=== PATIENT | female | born 1970 | race Caucasian/White ===

== ENCOUNTER → 2017-10-05 11:42 | Outpatient (CLI) | payer BC, SELFPAY ==
--- NOTE | 2017-10-05 12:10 | RAD_ITS ---
STUDY: X-RAY - LEFT SHOULDER REASON FOR EXAM: Female, 47 years old. Persistent pain after recent injury TECHNIQUE: Four view(s) of the shoulder. COMPARISON: None. FINDINGS: The glenohumeral joint is within normal limits. The acromioclavicular joint is normal in appearance. No acute abnormalities are seen in the visualized clavicle. No acute abnormalities are seen in the visualized humerus. The soft tissues are unremarkable. There is minimal pleural thickening in both lung apices. No significant abnormalities are seen in the visualized left lung or left ribs. RAD/Shoulder min 2 Views IMPRESSION: No significant abnormalities are seen radiographically in the left shoulder. Electronically Signed: Karlee Patrick MD at 0:43 EST Tel Direct: [phone], Service support ,
== END ==
PROVIDERS: Family Provider Family Medicine; PCP Family Medicine; Visit Provider Family Medicine
DX: M25.512 Pain in left shoulder (principal)
CPT/HCPCS: 73030

== ENCOUNTER → 2018-06-14 11:25 | Outpatient (CLI) | payer BC, SELFPAY ==
[2018-06-14 14:43] LABS: Anion Gap 6 (5-15); BUN 8 mg/dL (7-18); BUN/Creat Ratio 12.2 RATIO (10-20); Calcium,Total 8.2 mg/dL (8.5-10.1); Chloride 104 mmol/L (98-107); Cholesterol 209 mg/dL (200); Creatinine, Serum 0.65 mg/dL (0.55-1.02); EST Glomerular Filtration Rate 102 mL/min (>60); Est Glom Filt Rate - Afr Amer 123 mL/min (>60); Glucose 55 mg/dL (74-106); High Density Lipoprotein 53 mg/dL; Potassium 3.6 mmol/L (3.5-5.1); Sodium Level 138 mmol/L (136-145); Triglycerides 103 mg/dL; Very Low Density Lipoprotein 21 mg/dL (5-40)
[2018-06-14 14:49] LABS: Vitamin D,25 Hydroxy 15.4 ng/mL (29.95-100.01)
== END ==
PROVIDERS: Family Provider Family Medicine; PCP Family Medicine; Referring Provider Family Medicine; Visit Provider Family Medicine
DX: Z00.00 Encounter for general adult medical examination without abnormal findings (principal); E55.9 Vitamin D deficiency, unspecified
CPT/HCPCS: 36415; 80048; 80061; 82306

== ENCOUNTER → 2018-06-21 17:37 | Outpatient (CLI) | payer BC, SELFPAY ==
--- NOTE | 2018-06-21 18:15 | MRI_ITS ---
STUDY: MRI UPPER EXTREMITY LEFT HUMERUS WITHOUT CONTRAST REASON FOR EXAM: Female, 47 years old. Left posterior humerus pain x1 year TECHNIQUE: Standardized fat and water weighted pulse sequences were obtained in all 3 orthogonal planes. COMPARISON: X-ray left shoulder October 05, 2017. FINDINGS: Normal subcutis adipose space. There is no demonstrated solid, cystic, or lipomatous mass within the subcutaneous adipose space. Normal visualized muscles and fascia. Normal visualized neurovascular bundles. Normal humerus. There is no fracture. There is acromioclavicular spurring. MRI/Upper Ext/No Jt/ wo IMPRESSION: Normal unenhanced MRI of the left humerus. No fracture or periosteal reaction. No mass or fluid collection. Electronically Signed: Harinder Tesfaye MD at 9:38 EDT , Service support ,
== END ==
PROVIDERS: Family Provider Family Medicine; PCP Family Medicine; Referring Provider Family Medicine; Visit Provider Family Medicine
DX: M79.602 Pain in left arm (principal)
CPT/HCPCS: 73218

== ENCOUNTER → 2018-07-25 16:59 | Outpatient (CLI) | payer BC, SELFPAY ==
--- NOTE | 2018-07-25 17:01 | BI_ITS ---
MAMMOGRAPHY - BILATERAL SCREENING REASON FOR EXAM: Female, 47 years old. Routine annual screening examination. PERTINENT HISTORY: Non-contributory. TECHNIQUE: Digital bilateral breast paige (3D mammographic acquisition) in the CC and MLO projections. 2-D mediolateral oblique (MLO) and craniocaudad (CC) views of both breasts were obtained. CAD: Full Field Digital Mammography with Computer Added Detection was performed. COMPARISON: Comparison is made with prior abdomen examination dated July 12, 2016. FINDINGS: Breast Composition: The breasts are heterogeneously dense, which may obscure small masses. There are no dominant masses or suspicious calcifications. No other significant abnormalities are identified. There has been no significant change since the prior study. BI/SCREENING MAMM (CAD), BILAT IMPRESSION: Stable bilateral screening mammogram. Yearly follow-up mammogram recommended. (A) ASSESSMENT CATEGORY: BIRADS Category 1: Negative. A letter regarding these results will be sent to the patient by the facility within 30 days. Approximately 10% of breast cancers are not detected by mammography. A normal mammogram should not delay biopsy of a clinically suspicious abnormality. [id number] Electronically Signed: Arnold Ferraro MD at 14:51 EST Tel [phone], Service support ,
--- OUTSIDE RECORDS SUMMARY | 2018-09-19 23:01 | XMS RPT_ITS ---
:1970 Author Organization OHIP Care Team Providers Name Role Phone ALONZO NELSON Admitting Unavailable ALONZO NELSON Attending Unavailable ALONZO NELSON MD Consulting Unavailable ALONZO NELSON Primary Care Unavailable PROVIDER, UNKNOWN Consulting Unavailable KRISSY AKHTAR DO Admitting Unavailable KRISSY AKHTAR DO Attending Unavailable KRISSY AKHTAR DO Primary Care Unavailable RACHEL BARTH MD Admitting Unavailable RACHEL BARTH MD Attending Unavailable ALONZO NELSON MD Referring Unavailable ALONZO NELSON MD Consulting Unavailable RACHEL BARTH MD Primary Care Unavailable PROVIDER, UNKNOWN Consulting Unavailable Alonzo Nelson Attending Unavailable Alonzo Nelson Referring Unavailable Alonzo Nelson Primary Care Unavailable Nelson, Alonzo Attending Unavailable Nelson, Alonzo Referring Unavailable Nelson, Alonzo Primary Care Unavailable Nelson, Alonzo Attending Unavailable Nelson, Alonzo Primary Care Unavailable Nelson, Alonzo Referring Unavailable Nelson, Alonzo Attending Unavailable Nelson, Alonzo Referring Unavailable Nelson, Alonzo Primary Care Unavailable PROBLEMS PROBLEMS DATE TYPE CONDITION / CODE ATTENDING STATUS SOURCE 11/28/2017 Admitting Chest pain, LATOUF, BUTROS Active Landon Pomerene Diagnosis unspecified / [facility] R079(ICD-10) Hospital Repository 11/28/2017 Principle Chest pain, LATOUF, BUTROS Active Landon Pomerene Diagnosis unspecified / [facility] R079(ICD-10) Hospital Repository 10/25/2017 Admitting Pain in left NELSON, ALONZO R Active [facility] Diagnosis shoulder / [facility] C29614(ICD-10) Hospital Repository 10/25/2017 Principle Pain in left NELSON, ALONZO R Active [facility] Diagnosis shoulder / [facility] G28823(ICD-10) Hospital Repository PROCEDURES PROCEDURES No Procedure Records FoundRESULTS RESULTS SCREENING MAMM (CAD), Observed: 07/25/2018 Status: F Source: [place]IS[place] BIL 5:01 PM [facility] REPOSITORY [facility] Imaging Services [address] [place] [id number] SCREENING MAMM (CAD), BILAT MR#: [id number] Acct: [id number] Name: DIANE VALDEZ Rep #: [id number] : 1970 F 47 From: Arnold Ferraro MD PCP: Alonzo Nelson MD Status: REG CLI Study: SCREENING MAMM (CAD), BILAT Date of Exam: 07/25/18 Exam# [id number] Ordering Dr: Alonzo Nelson MD MAMMOGRAPHY - BILATERAL SCREENING REASON FOR EXAM: Female, 47 years old. Routine annual screening examination. PERTINENT HISTORY: Non-contributory. TECHNIQUE: Digital bilateral breast paige (3D mammographic acquisition) in the CC and MLO projections. 2-D mediolateral oblique (MLO) and craniocaudad (CC) views of both breasts were obtained. CAD: Full Field Digital Mammography with Computer Added Detection was performed. COMPARISON: Comparison is made with prior abdomen examination dated July 12, 2016. FINDINGS: Breast Composition: The breasts are heterogeneously dense, which may obscure small masses. There are no dominant masses or suspicious calcifications. No other significant abnormalities are identified. There has been no significant change since the prior study. BI/SCREENING MAMM (CAD), BILAT IMPRESSION: Stable bilateral screening mammogram. Yearly follow-up mammogram recommended. (A) ASSESSMENT CATEGORY: BIRADS Category 1: Negative. A letter regarding these results will be sent to the patient by the facility within 30 days. Approximately 10% of breast cancers are not detected by mammography. A normal mammogram should not delay biopsy of a clinically suspicious abnormality. [id number] Electronically Signed: Arnold Ferraro MD at 14:51 EST Tel [phone], Service support , CC: Alonzo Nelson MD Pewter Fabricator: Signed UPPER EXT/NO JT/ WO Observed: 06/21/2018 Status: F Source: ELO 5:40 PM [facility] REPOSITORY [facility] Imaging Services [address] [place] [address] Upper Ext/No Jt/ wo MR#: [id number] Acct: [id number] Name: DIANE VALDEZ Rep #: [id number] : 1970 F 47 From: Harinder Tesfaye MD PCP: Alonzo Nelson MD Status: REG CLI Study: Upper Ext/No Jt/ wo Date of Exam: 06/21/18 Exam# [id number] Ordering Dr: Alonzo Nelson MD STUDY: MRI UPPER EXTREMITY LEFT HUMERUS WITHOUT CONTRAST REASON FOR EXAM: Female, 47 years old. Left posterior humerus pain x1 year TECHNIQUE: Standardized fat and water weighted pulse sequences were obtained in all 3 orthogonal planes. COMPARISON: X-ray left shoulder October 05, 2017. FINDINGS: Normal subcutis adipose space. There is no demonstrated solid, cystic, or lipomatous mass within the subcutaneous adipose space. Normal visualized muscles and fascia. Normal visualized neurovascular bundles. Normal humerus. There is no fracture. There is acromioclavicular spurring. MRI/Upper Ext/No Jt/ wo IMPRESSION: Normal unenhanced MRI of the left humerus. No fracture or periosteal reaction. No mass or fluid collection. Electronically Signed: Harinder Tesfaye MD at 9:38 EDT , Service support , CC: Alonzo Nelson MD Pewter Fabricator: Signed BASIC METABOLIC Collected: 06/14/2018 Status: F Source: ELO PROFILE (BMP) 11:30 AM [facility] REPOSITORY TYPE CODE TESTS RESULT OUT OF RANGE REFERENCE UNITS LAB L501.0100 74-106 mg/dL Low GLU 55 Result Comment: Please note revised GLUCOSE reference range effective 2017. LAB L501.1000 7-18 mg/dL Normal BUN 8 LAB L501.1100 0.55-1.02 mg/dL Normal CREAT,SERUM 0.65 Result Comment: The validity of the calculated GFR AND GFRAA in patients over 70 years has not been determined. Clinical correlation is essential. LAB L501.1110 >60 mL/min Normal EST GFR 102 Result Comment: Non- GFR Calc LAB L501.1115 >60 mL/min Normal EST GFR - AA 123 Result Comment: GFR Calc LAB L501.1300 10-20 RATIO Normal BUN/CRE 12.2 LAB L501.2200 8.5-10.1 mg/dL Low CA 8.2 LAB L501.5300 136-145 mmol/L NA Normal 138 LAB L501.5600 3.5-5.1 mmol/L K Normal 3.6 LAB L501.5900 98-107 mmol/L CL Normal 104 LAB L501.6100 21.0-32.0 mmol/L Normal CO2 28.0 LAB L501.6200 5-15 Normal GAP 6 Performed By: #### L500.2500, L500.4100 #### [facility] Laboratory [address] [place], [address] LIPID PROFILE Collected: 06/14/2018 Status: F Source: [place]IS[place] 11:30 AM [facility] REPOSITORY TYPE CODE TESTS RESULT OUT OF RANGE REFERENCE UNITS LAB L501.4900 200 mg/dL High CHOL 209 Result Comment: <200 mg/dL Desirable 200-240 mg/dL Borderline >240 mg/dL High Risk LAB L501.5000 mg/dL Normal TRIG 103 Result Comment: The drugs N-Acetylcysteine and Metamizole may falsely depress this assay. Serum Triglycerides Reference Interval Normal <150 mg/dL Borderline high 150 - 199 mg/dL High 200 - 499 mg/dL Very High > or = 500 mg/dL LAB L501.6400 mg/dL Normal HDL 53 Result Comment: The drugs N-Acetylcysteine and Metamizole may falsely depress this assay. Reference Range HDL <40 mg/dL Low HDL Cholesterol HDL >or= 60 mg/dL High HDL Cholesterol LAB L501.6500 0-130 mg/dL High LDL 135 LAB L501.6600 5-40 mg/dL Normal VLDL 21 Performed By: #### L500.2500, L500.4100 #### [facility] [address] [place], [place], [address] VITAMIN D,25 HYDROXY Collected: 06/14/2018 Status: F Source: BRISBIN 11:30 AM [facility] REPOSITORY TYPE CODE TESTS RESULT OUT OF REFERENCE UNITS RANGE LAB L506.1000 29.95-100.01 ng/mL Low Vitamin D 15.4 25-OH Result Comment: Vitamin D 25(OH) Status Range Deficiency <20 ng/mL (50nmol/L) Insuffciency 20 - 30 ng/mL (50 - 75 nmol/L) Sufficiency 30 - 100 ng/mL (75 - 250 nmol/L) Toxicity >100 ng/mL (>250 nmol/L) Performed By: #### L506.1000 #### [facility] Laboratory [address] [place], [address] EMERGENCY REPORT Observed: 12/02/2017 Status: F Source: [place] 7:50 PM [facility] EMERGENCY ROOM REPORT NAME ACCOUNT SEX AGE ADMIT DISCHARGE PT MED. RECORD# NUMBER DATE DATE TYPE COURTNEY [id number] Yon 47 11/28/17 2 DIANE Stephens [id number] ROOM: 305MO DATE OF : 1970 DICTATING PHYSICIAN: Krissy Akhtar ADDENDUM DIAGNOSTIC DATA: White count was 6.8, hemoglobin 14.3, hematocrit 42.5, and platelet count 266,000. D-dimer was normal at 181. Magnesium was 2.3. BNP was normal at 27. Troponin was normal at less than 0.01. Sodium was 133, potassium 3.8, chloride 102, CO2 of 24.5, BUN 12, and creatinine 0.8. Liver functions came back within normal limits. Anion gap was 10. Chest x-ray showed no acute infiltrate or failure. EMERGENCY DEPARTMENT COURSE AND TREATMENT: I did discuss the case with Dr. Barth, the hospitalist on [facility], and he has accepted the patient for cardiac rule-out. I have discussed this with the patient, and she is agreeable, especially since her last stress test has been at least four years ago. She does have a family history where her mother had a coronary artery stent. Her father also had some history of heart problems. The patient will be admitted to Dr. Barth's service. DIAGNOSIS: Chest pain. D: Krissy Akhtar DO TD: 11/29/17 06:41 JOB #: [id number] Transcribed by: marietta Electronically signed by: E-Sign: Dr. Krissy Akhtar D.O. 12/02/17 19:49 Page 1 of 1 DIANE VALDEZ Emergency Room Report HISTORY AND PHYSICAL Observed: 12/01/2017 Status: F Source: [place] 10:10 AM [facility] HISTORY & PHYSICAL/DISCHARGE SUMMARY NAME ACCOUNT SEX AGE ADMIT DISCHARGE PT MED. RECORD# NUMBER DATE DATE TYPE COURTNEY [id number] Yon 47 11/28/17 11/29/17 2 DIANE Stephens [id number] ROOM: 305MO DATE OF : [birth year] DICTATING PHYSICIAN: Rachel Barth CHIEF COMPLAINT: Chest pain. HISTORY OF PRESENT ILLNESS: This is a 47-year-old female with past medical history significant for supraventricular tachycardia in the distant past. She had an ablation. She followed up with [place] with Dr. Randolph. She also has a history of anxiety. She stated while sitting yesterday she had an episode of chest pain. She stated it was a sharp pain, 10 out of 10 in severity in the middle of her chest. No shortness of breath. No palpitations. No feeling of her heart racing. No heartburn. No acid reflux. She did not eat any spicy foods. It just came on suddenly and lasted for about 20 minutes. She was encouraged to go to the emergency room. In the emergency room, initial cardiac workup was negative. She was in normal sinus rhythm, and she was admitted to rule out acute coronary syndrome. Upon evaluation this morning, she has no further chest pain. She occasionally gets nauseated. She had no fever and no other complaints. PAST MEDICAL HISTORY: (1) Supraventricular tachycardia. She had an ablation at [facility] in 2002. She followed up with Dr. Jesus Randolph after that. She was on a beta darren. She has been off for many years with no reoccurrence. (2) Anxiety on Zoloft. (3) Mild mitral valve prolapse. She stated her last echocardiogram was about 4 years ago. (4) History of acid reflux in the past. She states she no longer gets this and takes no medication for it. PAST SURGICAL HISTORY: (1) Ablation in 2002. (2) Appendectomy. (3) Cholecystectomy. (4) Partial hysterectomy. MEDICATIONS: Current medications at home: Zoloft 100 mg daily. ALLERGIES: No known drug allergies. FAMILY HISTORY: Mother has coronary artery disease with stent placement. Father had enlarged heart. There is also a family history of diabetes mellitus. SOCIAL HISTORY: The patient is single. She has no children. She rarely drinks alcohol. She does not smoke. 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 REVIEW OF SYSTEMS: Denies any headache, acute visual changes. No recent weight Page 1 of 4 DIANE VALDEZ History Physical/Discharge Summary changes, fever, chills. No recent respiratory infection, chest pain as noted above sharp pain in the middle of her chest lasting for about 20 minutes. No associated palpitations. No shortness of breath. No radiation to her arms, neck, or back. She occasionally gets nauseated. She had no diaphoresis with the episode. No abdominal pain. No bowel or bladder changes. PHYSICAL EXAMINATION GENERAL APPEARANCE: The patient was lying in bed in no acute distress. She is alert, pleasant, cooperative, well-nourished, and well-developed female. VITAL SIGNS: On admission, blood pressure was elevated at 168/93 and blood pressure repeated this morning 134/86, heart rate 74, respirations 16, temperature 98.1, oxygen saturation 98% on room air, weight 180 pounds with BMI of 28.19. HEENT: Unremarkable. NECK: Neck is supple. No nodes, masses, or JVD. No bruits. LUNGS: Normal respiratory effort, equal lung expansion, clear to auscultation bilaterally. HEART: Regular rate and rhythm with no murmurs or gallops appreciated. ABDOMEN: Positive bowel sounds, soft and nontender with no hepatosplenomegaly. EXTREMITIES: Free of edema, cyanosis, or clubbing with pulses palpable in the dorsalis pedis bilaterally. NEUROLOGIC: She is alert and oriented. Mood, affect, and memory within normal limits. Speech is clear, and she answers appropriately. DIAGNOSTIC DATA: Laboratory studies: White count is 6.0, hemoglobin 13.3, hematocrit 38.7. D-dimer is 181. BNP is 27. Magnesium is 2.3. Troponin is negative. Sodium 133, potassium 3.8, BUN 12, creatinine 0.8. This morning, sodium 134. Triglycerides 72, cholesterol 187, HDL 50, LDL 123. Diagnostic studies: Chest x-ray AP completed on admission with no acute disease. Nuclear stress test completed using Daniel protocol. Duration was 8 minutes, 10.10 METs with no inducible ischemia, prior myocardial infarction, normal ejection fraction. Echocardiogram completed with no previous studies to review with ejection fraction of 55 to 60%, normal right ventricular size and function, lipomatous hypertrophy of the antral septum, minimal mitral valve leaflet prolapse with trace of mitral regurgitation, normal diastolic function for her age, right ventricular systolic pressure of 14. IMPRESSION/PLAN: Chest pain, atypical. She was admitted for observation status and ruled out for acute coronary syndrome. She was placed on telemetry. Serial troponins Page 2 of 4 DIANE VALDEZ History Physical/Discharge Summary and EKGs were negative. She was placed on aspirin, statin, low-dose Lovenox, RAFAEL inhibitor, beta darren, p.r.n. nitrates, and proton-pump inhibitor. Chest x-ray was negative for infiltrate. D-dimer was within normal range, as well as BNP. Echocardiogram revealed minimal mitral valve prolapse with trace of mitral regurgitation and stress test with no ischemic changes. The patient has no further chest pain. Results were discussed with her in detail including the mitral valve prolapse. She was told this 4 years ago on an echocardiogram at the [facility]. This was not likely the reason for her chest pain, may be musculoskeletal. She will be discharged home today to continue on her home medication of Zoloft and increase activity as tolerated with no restrictions and follow up with Dr. Nelson on December 05 at 2 p.m. Condition on discharge is improved. Dictated by juventino Trinh for Rachel Barth M.D. I personally evaluated and examined the patient and agree with above note that reflects my visit to the patient and my decision making. Rachel Barth MD TD: 11/29/17 13:07 JOB #: [id number] Transcribed by: am Electronically signed by: Eric Barth M.D. 12/01/17 10:10 Update to H&P: [ ] No changes: I have examined the patient and reviewed the H&P and there are no changes. [ ] As previously dictated with the following changes: PHYSICIAN SIGNATURE: TIME: DATE: Page 3 of 4 DIANE VALDEZ History Physical/Discharge Summary NM CARDIAC STRESS Observed: 11/29/2017 Status: F [facility] 9:50 AM [place] [address] Patient: CAMILLADAYDIANE. Phone#: : 1970 Age: 47 Gender: F Pt. Type: Out Account: [id number] Location: [facility] Ordering: RACHEL DION Exam Date: 11/29/2017/8:28 Family Phys: ALONZO NELSON Charge Code: [id number] Physician: Blackford Order #: [id number] DLP Dose#: PROCEDURE: CARDIAC STRESS SPECT WITH TREADMILL EXERCISE HISTORY: 47-year-old female with chest pain INDICATIONS: Chest pain TECHNIQUE: Resting and stress SPECT images acquired in the horizontal long, vertical long and short axis views. Protocol: Daniel Duration: 08:00 minutes Peak Heart Rate: 166 bpm, which is 97% of maximum predicted heart rate. Workload: 10.10 METs REST DOSE: 10.5 mCi Sestamibi. STRESS DOSE: 33.7 mCi Sestamibi. INTERPRETATION: Resting Images: Homogeneous radiotracer uptake throughout the myocardium. Stress Images: Homogeneous radiotracer uptake throughout the myocardium. Gated SPECT/wall motion: Normal wall motion and normal end- systolic brightening and thickening of all myocardial segments, calculated LVEF 69%. Left ventricle end diastolic volume 70 mL. CONCLUSION: 1. No evidence of inducible ischemia or prior myocardial infarction. 2. Normal wall motion and systolic function, calculated LVEF 69%. 3. No prior study available for comparison. Dictated by: DANIELE ZIMMERMAN on 11/29/2017 at 10:00 Approved by: DANIELE ZIMMERMAN on 11/29/2017 at 10:00 NM EXERCISE STRESS Observed: 11/29/2017 Status: F Source: [facility] (W/CARDIAC STUDY 9:44 AM [place] [address] Patient: DIANE VALDEZ Phone#: : 1970 Age: 47 Gender: F Pt. Type: Out Account: [id number] Location: [facility] Ordering: RACHEL BARTH Exam Date: 11/29/2017/7:42 Family Phys: ALONZO NELSON Charge Code: [id number] Physician: JESUS Cee Order #: [id number] DLP Dose#: PROCEDURE: ELECTROCARDIOGRAM STRESS TEST HISTORY: 47-year-old female with chest pain INDICATIONS: Chest Pain TECHNIQUE: Electrocardiogram stress test was performed using the protocol listed below. STRESS RESULTS: Protocol: Daniel Duration: 8:00minutes Reason for termination: Fatigue Resting Heart Rate: 67 bpm. Resting Blood Pressure: 148/79 mmHg Peak Heart Rate: 166 which is 97% of maximum predicted heart rate Peak Blood Pressure: 160/80 at 5:50 Exercise Workload: 10.1 METs. Symptoms with stress: Shortness of breath and fatigue. No exercise induced chest pain. EKG Data EKG at Baseline: Normal sinus rhythm. Normal EKG. EKG with Stress: No acute ST-T wave changes assistive of ischemia. Rare PVCs noted. CONCLUSION: 1. Negative exercise EKG stress test for ischemia. 2. Average functional capacity. 3. No exercise-induced chest pain. 4. Normal blood pressure and heart rate response to exercise. 5. Rare PVCs noted. 6. Nuclear images will be reviewed and reported separately. Dictated by: DANIELE ZIMMERMAN on 11/29/2017 at 9:59 Continued Report - Page 2 of 2 Patient: DIANE VALDEZ Phone#: : 1970 Age: 47 Gender: F Pt. Type: Out Account: [id number] Location: 010 Ordering: VEROROS DION Exam Date: 11/29/2017/7:42 Family Phys: ALONZO NELSON Charge Code: [id number] Physician: JESUS RANDOLPH Blackford Order #: [id number] DLP Dose#: Approved by: DANIELE ZIMMERMAN on 11/29/2017 at 9:59 TROPONIN Collected: 11/29/2017 Status: F Source: [facility] 9:04 [facility] TYPE CODE TESTS RESULT OUT OF REFERENCE UNITS RANGE LAB TROPONIN 0.00 - 0.05 ng/ml I(LOINC) TROPONIN I <0.01 Result Comment: Elevated troponin (above the 99th percentile) usually indicates myocardial ischemia. Results must be interpreted within the clinical setting. 1.Non-ischemic pathology can also cause elevated troponin levels (e.g., acute pulmonary embolism, myocarditis, pericarditis, heart failure, intracranial injury, rhabdomyolisis, sepsis, shock and renal insufficiency). 2.Approximately 1% of healthy adults have elevated troponin levels. 3.Analytical false positive results rarely occur(due to multiple interferences such as heterophile antibodies). Performed By: #### [id number] #### [facility],[address] [place] [address] CV ECHO COMPLETE Observed: 11/29/2017 Status: F Source: [place] 7:47 [place] [address] Patient: DIANE VALDEZ Phone#: : 1970 Age: 47 Gender: F Pt. Type: Out Account: [id number] Location: 010 Ordering: VEROROS LATOUYon Exam Date: 11/29/2017/7:06 Family Phys: ALONZO NELSON Charge Code: [id number] Physician: Blackford Order #: [id number] DLP Dose#: PROCEDURE: ECHOCARDIOGRAM WITH DOPPLER AND COLOR FLOW HISTORY: 47-year-old female with chest pain INDICATIONS: Chest pain TECHNIQUE: A 2-D ultrasound, color spectral Doppler and M-mode evaluation of the heart and great vessels. PATIENT MEASUREMENTS: Height (in.): 67 BSA: 1.9 Weight (lbs.): 180 BP: 144/86 Machine Candle Molder: ADRIANA M MODE 2D MEASUREMENTS AND CALCULATIONS: LVIDd: 4.47 cm LVIDs: 2.81 cm IVSd: 0.76 cm LVPWd: 0.95 cm FS: 37.19 % Ao Root diam: 2.71 cm LA diam: 2.93 cm LA Volume Index: 16.3 mL/m2 LA A4 Area: 12.44 cm2 RA A4 Area: 8.9 cm RVDd: 2.40 cm TAPSE: 24 mm DOPPLER MEASUREMENTS AND CALCULATIONS MITRAL MV E MAX wallace: 68.58 cm/s MV A MAX wallace: 41.08 cm/s MV E-A ratio: 1.67 Lat Peak E' Wallace 12 cm/s Septal Peak E' WALLACE 9 cm/s Continued Report - Page 2 of 3 Patient: DIANE VALDEZ Phone#: : 1970 Age: 47 Gender: F Pt. Type: Out Account: [id number] Location: 010 Ordering: RACHEL BARTH Exam Date: 11/29/2017/7:06 Family Phys: ALONZO NELSON Charge Code: [id number] Physician: Blackford Order #: [id number] DLP Dose#: Lateral E./E.' 5.6 Medial E./E.' 7.7 AORTIC Ao V2 max: 125.54 cm/s Ao max P.30 mm[Hg] LV V1 Max 84.56 cm/s LV V1 Max PG 2.86 mm[Hg] PULMONIC PA V2 Max 103.83 cm/s PA Max PG 4.31 mm[Hg] TRICUSPID TR Max Wallace 163.30 cm/s TR max PG 10.84 mm[Hg] RVSP 14 mmHg 2D/M-MODE AND COLOR FLOW LEFT VENTRICLE: Normal left ventricle size and wall thickness. Normal wall motion and systolic function, ejection fraction 55-60%. Normal diastolic function for age. WALL MOTION: 1 - Basal anterior: Normal. 7 - Mid anterior: Normal. 13 - Apical anterior: Normal. 2 - Basal anteroseptal: Normal. 8 - Mid anteroseptal: Normal. 14 - Apical septal: Normal. 3 - Basal inferoseptal: Normal. 9 - Mid inferoseptal: Normal. 15 - Apical inferior: Normal. 4 - Basal inferior: Normal. 10-Mid inferior: Normal. 16 - Apical lateral: Normal. 5 - Basal inferolateral: Normal. 11-Mid inferolateral: Normal. 6 - Basal anterolateral: Normal. 12-Mid anterolateral: Normal. RIGHT VENTRICLE: Normal size and systolic function. Prominent moderator band noted. LEFT ATRIUM: Normal RIGHT ATRIUM: Normal ATRIAL SEPTUM: Lipomatous hypertrophy of the interatrial septum. MITRAL VALVE: Normal leaflet structure and minimal mitral valve leaflet prolapse. Trace mitral regurgitation. TRICUSPID VALVE: Normal leaflet structure and mobility. Trace tricuspid regurgitation. AORTIC VALVE: Trileaflet aortic valve with normal leaflet structure and mobility. No significant aortic stenosis or regurgitation. PULMONIC VALVE: Normal leaflet structure and mobility. Trace amount of insufficiency. AORTIC ROOT: Normal IVC/SVC: Normal size and normal respirophasic response PERICARDIUM: No significant pericardial effusion CONCLUSION: Continued Report - Page 3 of 3 Patient: DIANE VALDEZ Phone#: : 1970 Age: 47 Gender: F Pt. Type: Out Account: [id number] Location: [facility] Ordering: RACHEL BARTH Exam Date: 11/29/2017/7:06 Family Phys: ALONZO NELSON Charge Code: [id number] Physician: Blackford Order #: [id number] DLP Dose#: 1. Normal left ventricle size and systolic function, ejection fraction 55-60%. 2. Normal right ventricle size and systolic function. 3. Lipomatous hypertrophy of the interatrial septum. 4. Minimal mitral valve leaflet prolapse with trace mitral regurgitation. 5. Normal diastolic function for age. 6. RVSP estimated to be 14 mmHg. 7. No prior study available for comparison. Dictated by: DANIELE ZIMMERMAN on 11/29/2017 at 9:55 Approved by: DANIELE ZIMMERAMN on 11/29/2017 at 9:55 CBC DAILY Collected: 11/29/2017 Status: F Source: [place] 5:12 AM [facility] REPOSITORY TYPE CODE TESTS RESULT OUT OF REFERENCE UNITS RANGE LAB WBC(LOINC) 4.5 - 10.8 x 10EE3/UL WBC 6.0 LAB RBC(LOINC) 4.10 - 5.30 x 10EE6/UL RBC 4.36 LAB HEMOGLOBIN 12.0 - 16.0 g/dl (LOINC) HEMOGLOBIN 13.3 LAB HEMATOCRIT 34.0 - 46.0 % (LOINC) HEMATOCRIT 38.7 LAB MCV(LOINC) 80 - 99 fl MCV 89 LAB MCH(LOINC) 27 - 33 pg MCH 30 LAB MCHC(LOINC 32 - 36 X10 3 ) MCHC 34 LAB RDW/CV(YANIRA 12.0 - 15.6 % NC) RDW/CV 14.5 LAB PLATELET(L 150 - 450 x10EE3/UL OINC) PLATELET 273 LAB MPV(LOINC) 6.6 - 10.5 fl MPV 9.8 Result Comment: AUTOMATED DIFFERENTIAL LAB NEUT %(LOINC) 46.0 - 76.0 % NEUT % 48.8 LAB LYMPH %(LOINC) 20.0 - 45.0 % LYMPH % 38.6 LAB MONOS %(LOINC) 0.0 - 10.0 % MONOS % High 10.4 LAB EO %(LOINC) 0.0 - 7.0 % EO % 1.5 LAB BASO %(LOINC) 0.0 - 2.0 % BASO % 0.7 LAB Lymph #(LOINC) 0.80 - 2.80 x10EE3/U L Lymph # 2.30 LAB Neut #(LOINC) 1.50 - 7.10 x10EE3/U L Neut # 2.90 LAB Gage #(LOINC) 0.20 - 1.00 x10EE3/U L Gage # 0.60 LAB EO #(LOINC) 0.00 - 0.50 x10EE3/U L EO # 0.10 LAB Baso #(LOINC) 0.00 - 0.10 x10EE3/U L Baso # 0.00 LAB MANUAL DIFF(LOINC) MANUAL DIFF N/A LAB MORPHOLOGY(LOINC ) MORPHOLOGY N/A Result Comment: {CD] Performed By: #### [id number] #### [facility],[address] [place], [place] [id number] LIPID PROFILE Collected: 11/29/2017 Status: F Source: [facility] 5:12 AM [facility] REPOSITORY TYPE CODE TESTS RESULT OUT OF REFERENCE UNITS RANGE LAB LIPID PROFILE(LOIN C) LIPID PROFILE Result Comment: LIPID PROFILE LAB TRIGLYCERIDE(LOINC) 0 - 150 mg/dl TRIGLYCERIDE 72 LAB CHOLESTEROL(LOINC) 0 - 200 mg/dl CHOLESTEROL 187 LAB HDL(LOINC) 40 - 60 mg/dl HDL 50 LAB CHOL/HDL(LOINC) 0.0 - 5.0 CHOL/HDL 3.7 LAB LDL(LOINC) 0 - 129 mg/dl LDL 123 Performed By: #### [id number] #### [facility],[address] [place] [address] BMP WITH EGFR DAILY Collected: 11/29/2017 Status: F Source: [facility] 5:12 AM [facility] REPOSITORY TYPE CODE TESTS RESULT OUT OF RANGE REFERENCE UNITS LAB BMP with eGFR DAILY(LOINC ) BMP with eGFR DAILY Result Comment: BASIC METABOLIC PANEL LAB SODIUM(LOINC) 136 - 145 mmol/l SODIUM Low 134 LAB POTASSIUM(LOINC) 3.5 - 5.1 mmol/L POTASSIUM 3.7 LAB CHLORIDE(LOINC) 98 - 107 mmol/L CHLORIDE 105 LAB CO2(LOINC) 21.0 - mmol/L 31.0 CO2 22.9 LAB GLUCOSE(LOINC) 74 - 106 mg/dl GLUCOSE 88 LAB BUN(LOINC) 6 - 20 mg/dl BUN 11 LAB CREATININE(LOINC) 0.6 - 1.2 mg/dl CREATININE 0.7 LAB CALCIUM(LOINC) 8.6 - mg/dl 10.2 CALCIUM Low 8.5 LAB ANION GAP(LOINC) 10 - 20 mmol/L ANION GAP 10 LAB AGE(LOINC) years AGE 47 LAB eGFR(LOINC) 60 - 999 ML/MINUTE eGFR >60 LAB eGFR(AA)(LOINC) 60 - 999 ML/MINUTE eGFR(AA) >60 Result Comment: {LL] {II] {HH] ACCORDING TO THE NATIONAL KIDNEY DISEASE EDUCATION PROGRAM(NKDE), A NORMAL eGFR IS A VALUE GREATER THAN OR EQUAL TO 60 ML/MIN/1.73 SQ METERS. CHRONIC KIDNEY DISEASE: <60mL/MIN/1.73 SQ METERS KIDNEY FAILURE: <15mL/MIN/1.73 SQ METERS THIS TEST SHOULD ONLY BE USED FOR PATIENTS 18 YEARS OF AGE AND OLDER. Performed By: #### [id number] #### [facility],[address] [place] [address] EMERGENCY REPORT Observed: 11/29/2017 Status: F Source: [facility] [facility] 4:53 AM [facility] EMERGENCY ROOM REPORT NAME ACCOUNT SEX AGE ADMIT DISCHARGE PT MED. RECORD# NUMBER DATE DATE TYPE COURTNEY [id number] F 47 11/28/17 Norman Stephens [id number] ROOM: ER DATE OF : 1970 DICTATING PHYSICIAN: Krissy Akhtar Time seen is 8:10 p.m. on November 28, 2017 HISTORY OF PRESENT ILLNESS: This is a 47-year-old female complaining of some left-sided chest pain that she has had off and on for the past week. It is usually occurs nonexertional. Tonight, she got another episode of chest pain that started about 20 minutes ago. This episode was more severe than the previous episodes of chest pain she has had off and on for the past week. She rated this chest pain as a 10 at onset on a severity scale. She states now the chest pain is a 2. She did not take anything for it and it was nonexertional. She describes it as a dull pain, which radiated into the left side of her neck. She states it felt like someone punched her in the left side of her neck. She did admit to associated nausea. She denied any shortness of breath. She states that her legs got very weak and she felt like she had been running a long period of time which she had actually not. This occurred while she was at the [employer] sitting down and talking. She had a similar episode of this a long time ago and she did have a stress test 4 years ago, which was okay, but she has not had a stress test since. The stress test was done at the [facility] in [place]. PAST MEDICAL HISTORY: Tachycardia. She did have an ablation back in 2002. MEDICATIONS: She was on beta blockers for a while, but her supervisor drawing, who is Dr. Esteves in [place], took her off the beta darren 6 years ago. The only medication she takes now is Zoloft for her anxiety. PAST SURGICAL HISTORY: Include heart ablation as noted in 2002. ALLERGIES: No known drug allergies. SOCIAL HISTORY: The patient does not smoke. She does not drink alcohol. She lives alone. REVIEW OF SYSTEMS: The patient admits to chest pain, nausea, left-sided neck pain with associated leg weakness. She denies any shortness of breath, cough, sputum, wheezing, abdominal pain, vomiting, diarrhea, constipation, melena, hematochezia, headache, numbness, unsteady gait, but does admit to weakness. Denies any back pain, but does complain of left-sided neck pain. Further review of systems is negative. Page 1 of 2 DIANE VALDEZ Emergency Room Report PHYSICAL EXAMINATION: The patient is alert and oriented x3. She presently appears in no acute distress. She is pleasant and cooperative. HEENT: Head appears atraumatic. Pupils are equal and reactive to light. Red reflex intact bilaterally. Extraocular muscles are intact. No conjunctival injection. No scleral icterus or lid edema. Nose exhibits no rhinorrhea or epistaxis. Mouth: Mucous membranes are moist. No pharyngeal erythema. Uvula is midline and elevates. Neck is supple. Trachea is midline. No JVD or lymphadenopathy. No posterior cervical tenderness. No nuchal rigidity. Lungs: Clear to auscultation in all lung ross. No adventitious sounds are noted. CV: Heart rate and rhythm are regular without murmur. Abdomen is soft and nontender with normoactive bowel sounds x4 quadrants. No guarding or rigidity. No rebound. No palpable abdominal masses. No hepatosplenomegaly. Back exhibits no midline or paraspinal region tenderness. No increased paraspinal muscle rigidity. Negative Eladio's sign. Extremities: No edema or cyanosis. Peripheral pulses are intact. No motor or sensory deficits are noted. 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 Skin is warm and dry. No diaphoresis or rash. Neurologic examination shows the patient to be alert and oriented x4. No motor or sensory deficits noted. Normal speech. The patient is pleasant, cooperative with normal affect. DIAGNOSTIC DATA: EKG at 2006 hours shows a sinus rhythm at a rate of 76 beats per minute. No acute ST segment changes are noted. Afton is approximately 60 degrees. EMERGENCY DEPARTMENT COURSE AND TREATMENT/PLAN/DISPOSITION: Presently, I do have a cardiac workup pending. We will give the patient some sublingual nitroglycerin to see if it helps her chest pain and then we will reevaluate. D: Krissy Akhtar DO TD: 11/28/17 20:41 JOB #: [id number] Transcribed by: am Electronically signed by: E-Sign: Dr. Krissy Akhtar D.O. 11/29/17 04:53 Page 2 of 2 DIANE VALDEZ Emergency Room Report TROPONIN Collected: 11/29/2017 Status: F Source: [facility] 2:57 AM [facility] REPOSITORY TYPE CODE TESTS RESULT OUT OF REFERENCE UNITS RANGE LAB TROPONIN 0.00 - 0.05 ng/ml I(LOINC) TROPONIN I <0.01 Result Comment: Elevated troponin (above the 99th percentile) usually indicates myocardial ischemia. Results must be interpreted within the clinical setting. 1.Non-ischemic pathology can also cause elevated troponin levels (e.g., acute pulmonary embolism, myocarditis, pericarditis, heart failure, intracranial injury, rhabdomyolisis, sepsis, shock and renal insufficiency). 2.Approximately 1% of healthy adults have elevated troponin levels. 3.Analytical false positive results rarely occur(due to multiple interferences such as heterophile antibodies). Performed By: #### [id number] #### [facility],[address] [place] [address] Observed: 11/29/2017 Status: COMPLETED Source: [place] 12:00 AM CLINIC OTHER CAMPUS REPOSITORY Telephone (AGCARDWST) DIANE VALDEZ ([id number]) 1970 F Date Time Provider Department 11/29/17 [facility] RANDOLPH AGCARDWST During your visit today, we recorded the following information about you: Mitra Tavera LPN 11/29/2017 11:16 AM Signed Please review outside testing from [facility].SERINA Flores MD 11/29/2017 4:36 PM Signed This does not include the nuclear images. Please update tomorrow. MD Mitra Perez LPN 12/04/2017 2:21 PM Signed Requested again.SERINA Flores LPN 12/04/2017 4:41 PM Signed Please review further results sent on patient.SERINA Flores MD 12/04/2017 4:57 PM Signed Studies reviewed and sent for scanning. There is no indication that we ordered this or that she has an appointment to see us. We have not seen her for 3 years. Mc Randolph MD Allergies As of Date: 11/29/2017 Noted Allergy Reaction Nkda [Other] 12/19/2002 Date Reviewed: 09/16/2014 Reviewed by: Vanda Ram Ma - Fully Assessed Reason for Visit: Stress Test [1922] Prescriptions as of 11/29/2017 Sig: SERTRALINE 100 MG TABLET once daily. ALEVE ORAL Take by mouth. Problem List As Of Date 11/29/2017 Noted Resolved Nausea [R11.0] INVALID FOR* GERD (gastroesophageal reflux disease) [K21.9] INVALID FOR* RUQ pain [R10.11] INVALID FOR* Diarrhea [R19.7] INVALID FOR* Biliary dyskinesia [K82.8] INVALID FOR* Atypical chest pain [R07.89] INVALID FOR* S/P RF ablation operation for arrhythmia [Z98.8*INVALID FOR* PVC's (premature ventricular contractions) [I49*INVALID FOR* Encounter Status:Closed by MC RANDOLPH MD on 12/04/17 TROPONIN Collected: 11/28/2017 Status: F Source: [facility] 11:50 PM [facility] REPOSITORY TYPE CODE TESTS RESULT OUT OF REFERENCE UNITS RANGE LAB TROPONIN 0.00 - 0.05 ng/ml I(LOINC) TROPONIN I <0.01 Result Comment: Elevated troponin (above the 99th percentile) usually indicates myocardial ischemia. Results must be interpreted within the clinical setting. 1.Non-ischemic pathology can also cause elevated troponin levels (e.g., acute pulmonary embolism, myocarditis, pericarditis, heart failure, intracranial injury, rhabdomyolisis, sepsis, shock and renal insufficiency). 2.Approximately 1% of healthy adults have elevated troponin levels. 3.Analytical false positive results rarely occur(due to multiple interferences such as heterophile antibodies). Performed By: #### [id number] #### [facility],[address] [place] [address] CHEST 1 VIEW Observed: 11/28/2017 Status: F Source: [facility] 8:55 PM [facility] REPOSITORY [address] [address] Patient: DIANE VALDEZ Phone#: : 1970 Age: 47 Gender: F Pt. Type: ER Account: [id number] Location: [facility] Ordering: KRISSY AKHTAR Exam Date: 11/28/2017/20:40 Family Phys: ALONZO NELSON Charge Code: 232468 Physician: Blackford Order #: [id number] DLP Dose#: PROCEDURE: X-RAY CHEST 1 VIEW COMPARISON: None. INDICATIONS: Chest Pain FINDINGS: LUNGS: Normal. No significant pulmonary parenchymal abnormalities. VASCULATURE: Normal. Unremarkable pulmonary vasculature. CARDIAC: Normal. No cardiac silhouette abnormality or cardiomegaly. MEDIASTINUM: Normal. No visible mass or adenopathy. PLEURA: Normal. No effusion or pleural thickening. BONES: Normal. No fracture or visible bony lesion. OTHER: Negative. CONCLUSION: No acute disease. Dictated by: Judy Willingham MD on 11/29/2017 at 8:14 Approved by: Judy Willingham MD on 11/29/2017 at 8:14 CBC Collected: 11/28/2017 Status: F Source: [facility] 8:37 PM [facility] REPOSITORY TYPE CODE TESTS RESULT OUT OF RANGE REFERENCE UNITS LAB CBC(LOINC) CBC Result Comment: CBC-COMPLETE BLOOD COUNT LAB WBC(LOINC) 4.5 - 10.8 x 10EE3/UL WBC 6.8 LAB RBC(LOINC) 4.10 - x 10EE6/UL 5.30 RBC 4.80 LAB HEMOGLOBIN(LOINC) 12.0 - g/dl 16.0 HEMOGLOBIN 14.3 LAB HEMATOCRIT(LOINC) 34.0 - % 46.0 HEMATOCRIT 42.5 LAB MCV(LOINC) 80 - 99 fl MCV 89 LAB MCH(LOINC) 27 - 33 pg MCH 30 LAB MCHC(LOINC) 32 - 36 X10 3 MCHC 34 LAB RDW/CV(LOINC) 12.0 - % 15.6 RDW/CV 14.5 LAB PLATELET(LOINC) 150 - 450 x10EE3/UL PLATELET 266 LAB MPV(LOINC) 6.6 - 10.5 fl MPV 9.8 Result Comment: AUTOMATED DIFFERENTIAL LAB NEUT %(LOINC) 46.0 - 76.0 % NEUT % 55.3 LAB LYMPH %(LOINC) 20.0 - 45.0 % LYMPH % 32.7 LAB MONOS %(LOINC) 0.0 - 10.0 % MONOS % High 10.2 LAB EO %(LOINC) 0.0 - 7.0 % EO % 0.9 LAB BASO %(LOINC) 0.0 - 2.0 % BASO % 0.9 LAB Lymph #(LOINC) 0.80 - 2.80 x10EE3/U L Lymph # 2.20 LAB Neut #(LOINC) 1.50 - 7.10 x10EE3/U L Neut # 3.80 LAB Gage #(LOINC) 0.20 - 1.00 x10EE3/U L Gage # 0.70 LAB EO #(LOINC) 0.00 - 0.50 x10EE3/U L EO # 0.10 LAB Baso #(LOINC) 0.00 - 0.10 x10EE3/U L Baso # 0.10 LAB MANUAL DIFF(LOINC) MANUAL DIFF N/A LAB MORPHOLOGY(LOINC ) MORPHOLOGY N/A Result Comment: {CD] Performed By: #### [id number] #### [place] [id number] D-DIMER, QUANTITATIVE Collected: 11/28/2017 Status: F Source: [facility] 8:37 PM [facility] REPOSITORY TYPE CODE TESTS RESULT OUT OF REFERENCE UNITS RANGE LAB D-DIMER, QUANTITATI VE(LOINC) D-DIMER, QUANTITATIVE Result Comment: QUANT D-DIMER LAB D-DIMER QUANT(LOINC) 0 - 230 ng/ml D-DIMER QUANT 181 Performed By: #### [id number] #### [place] [id number] BNP (B-TYPE NATRIURETIC Collected: 11/28/2017 Status: F Source: [place] POMERENE PEPTIDE) 8:37 PM [facility] REPOSITORY TYPE CODE TESTS RESULT OUT OF RANGE REFERENCE UNITS LAB BNP(LOINC) 1 - 100 pg/ml BNP 27 Performed By: #### [id number] #### [place] [id number] TROPONIN Collected: 11/28/2017 Status: F Source: [facility] 8:37 PM [facility] REPOSITORY TYPE CODE TESTS RESULT OUT OF REFERENCE UNITS RANGE LAB TROPONIN 0.00 - 0.05 ng/ml I(LOINC) TROPONIN I <0.01 Result Comment: Elevated troponin (above the 99th percentile) usually indicates myocardial ischemia. Results must be interpreted within the clinical setting. 1.Non-ischemic pathology can also cause elevated troponin levels (e.g., acute pulmonary embolism, myocarditis, pericarditis, heart failure, intracranial injury, rhabdomyolisis, sepsis, shock and renal insufficiency). 2.Approximately 1% of healthy adults have elevated troponin levels. 3.Analytical false positive results rarely occur(due to multiple interferences such as heterophile antibodies). Performed By: #### [id number] #### [place] [id number] CMP WITH EGFR Collected: 11/28/2017 Status: F Source: [facility] 8:37 [facility] REPOSITORY TYPE CODE TESTS RESULT OUT OF RANGE REFERENCE UNITS LAB CMP with eGFR(LOINC) CMP with eGFR Result Comment: COMPREHENSIVE METABOLIC PANEL LAB SODIUM(LOINC) 136 - 145 mmol/l SODIUM Low 133 LAB POTASSIUM(LOINC) 3.5 - 5.1 mmol/L POTASSIUM 3.8 LAB CHLORIDE(LOINC) 98 - 107 mmol/L CHLORIDE 102 LAB CO2(LOINC) 21.0 - mmol/L 31.0 CO2 24.5 LAB GLUCOSE(LOINC) 74 - 106 mg/dl GLUCOSE 84 LAB BUN(LOINC) 6 - 20 mg/dl BUN 12 LAB CREATININE(LOINC) 0.6 - 1.2 mg/dl CREATININE 0.8 LAB AST/SGOT(LOINC) 13 - 39 U/L AST/SGOT 13 LAB ALK PHOS(LOINC) 38 - 126 U/L ALK PHOS 69 LAB CALCIUM(LOINC) 8.6 - mg/dl 10.2 CALCIUM 9.0 LAB TOTAL PROTEIN(LOINC) 6.4 - 8.3 g/dl TOTAL PROTEIN 7.8 LAB ALBUMIN(LOINC) 3.4 - 4.8 g/dL ALBUMIN 4.6 LAB GLOBULIN(LOINC) 1.5 - 3.8 G/DL GLOBULIN 3.2 LAB A/G RATIO(LOINC) 0.9 - 1.6 A/G RATIO 1.4 LAB TOTAL BILI(LOINC) 0.0 - 1.5 mg/dl TOTAL BILI 0.4 LAB B/C RATIO(LOINC) 0 - 30 ratio B/C RATIO 15 LAB ALT/SGPT(LOINC) 8 - 35 U/L ALT/SGPT Low 7 LAB ANION GAP(LOINC) 10 - 20 mmol/L ANION GAP 10 LAB AGE(LOINC) years AGE 47 LAB eGFR(LOINC) 60 - 999 ML/MINUTE eGFR >60 LAB eGFR(AA)(LOINC) 60 - 999 ML/MINUTE eGFR(AA) >60 Result Comment: ACCORDING TO THE NATIONAL KIDNEY DISEASE EDUCATION PROGRAM(NKDE), A NORMAL eGFR IS A VALUE GREATER THAN OR EQUAL TO 60 ML/MIN/1.73 SQ METERS. CHRONIC KIDNEY DISEASE: <60mL/MIN/1.73 SQ METERS KIDNEY FAILURE: <15mL/MIN/1.73 SQ METERS THIS TEST SHOULD ONLY BE USED FOR PATIENTS 18 YEARS OF AGE AND OLDER. Performed By: #### [id number] #### [facility],[address] [place], [place] [address] MAGNESIUM Collected: 11/28/2017 Status: F Source: [facility] 8:37 PM [facility] REPOSITORY TYPE CODE TESTS RESULT OUT OF REFERENCE UNITS RANGE LAB MAGNESIUM( 1.6 - 2.6 mg/dl LOINC) MAGNESIUM 2.3 Performed By: #### [id number] #### [facility],[address] [place], [place] [id number] SHOULDER MIN 2 VIEWS Observed: 10/05/2017 Status: F Source: [place] 11:47 AM [facility] REPOSITORY [facility] Imaging Services [address] [place] [address] Shoulder min 2 Views MR#: [id number] Acct: [id number] Name: DIANE VALDEZ Rep #: [id number] : 1970 F 47 From: Karlee Patrick MD PCP: Alonzo Nelson MD Status: REG CLI Study: Shoulder min 2 Views Date of Exam: 10/05/17 Exam# [id number] Ordering Dr: Alonzo Nelson MD STUDY: X-RAY - LEFT SHOULDER REASON FOR EXAM: Female, 47 years old. Persistent pain after recent injury TECHNIQUE: Four view(s) of the shoulder. COMPARISON: None. FINDINGS: The glenohumeral joint is within normal limits. The acromioclavicular joint is normal in appearance. No acute abnormalities are seen in the visualized clavicle. No acute abnormalities are seen in the visualized humerus. The soft tissues are unremarkable. There is minimal pleural thickening in both lung apices. No significant abnormalities are seen in the visualized left lung or left ribs. RAD/Shoulder min 2 Views IMPRESSION: No significant abnormalities are seen radiographically in the left shoulder. Electronically Signed: Karlee Patrick MD at 0:43 EST Tel Direct: [phone], Service support , CC: Alonzo Nelson MD [employer]ator: Signed ALLERGIES ALLERGIES DATE TYPE / CODE NAME / CODE REACTION SEVERITY SOURCE 04/02/2014 Drug No Known Unknown [place] Allergy/[id number](S Allergies/F[facility] [place]) [address](RXNORM) Hospital Repository Miscellaneous No Known Drug Moderate Landon Pomerene Allergy/[id number](S Allergies ([facility]) Modifier) Hospital (Qualifier Repository Value) ENCOUNTERS ENCOUNTERS ADMIT/DISCHARGE ACCOUNT ADMITTING ENCOUNTER LOCATION SOURCE NUMBER CLASS 07/25/2018 [id number] Ambulatory [place] Elo 9 [facility] ing:OPBI Repository 06/21/2018 [id number] Ambulatory [facility]o [facility] 1 [facility] ing:MRI Repository 06/14/2018 [id number] Ambulatory [place] 6 [facility] ing:MTLAB Repository 11/28/2017 [id number] KRISSY AKHTAR Emergency BuildinR [facility] oom: ERBed: B [facility] Repository 11/28/2017/ [id number] DION, Ambulatory BuildinR [facility] 8 RACHEL KO oom: 305MO [facility] Repository 10/25/2017/ [id number] ALONZO NELSON Ambulatory [facility] 8 R [facility] Repository 10/05/2017 [id number] Ambulatory [place]o [place] 8 [facility] ing:MTRAD Repository PAYERS PAYERS ENCOUNTER GUARANTOR PAYER SUBSCRIBER SOURCE 07/25/2018 DIANE Stephens Primary DIANE [id number] S Insurance:ANTHEMPolicy LECKRONEDOB: [facility] Number: [id number] [id number] [place]ository [place] [address]Isl: ve Date:[id number] [address] [place] [address]) [address]OM: 07/25/2018 Secondary NOT GIVENUNK [place] Insurance:SELF PAY [facility] Number: Effective Repository Date:2018-06-14 06/21/2018 DIANE Stephens Primary DIANE [id number] S Insurance:ANTHEMPolicy LECKRONEDOB: [facility] Number: [id number] [id number] [place]ository [place] [address]Ebu: ve Date:[id number] [address]) [address]MA: 06/21/2018 Secondary NOT GIVENUNK [place] Insurance:SELF PAY [facility] Number: Effective Repository Date:2018-06-17 06/14/2018 Diane Edwardsone41 S Insurance:ANTHEMPolicy LeckroneDOB: [facility] Number: [id number] Regional Hospital [id number] [place]ository [place] [address]Gqk: ve Date:[id number] [address]UFPDKHK, [place] () [address]XS: 06/14/2018 Secondary NOT GIVENUNK Elo Insurance:SELF PAY [facility] Number: Effective Repository Date:2018-06-14 11/28/2017 DIANE J Primary Insurance:BLUE DIANE Iyerne LECKRONEDOB: [address] LECKRONEDOB: [facility] [id number] Number: [facility] Repository [facility] [id number] [place], [place] ve Date:Plan Name:[facility] [id number]: [address]BTHOXJJ, [place] [id number]: [phone] 10/25/2017 DIANE J Primary DIANE J Landon Pomerene LECKRONEDOB: Insurance:EUGENIANERIS MATTHIAS LECKRONEDOB: [facility] [id number] Repository [facility], Number: [facility]ATION[facility]ESan [place] [id number] [place] [id number]: ve Date:Plan Name: () 10/25/2017 Secondary DIANE Iyerne Insurance:NADEGE SAMPSONKRONEDOB: [facility] [id number] [place] [address] Repository [facility]: [facility] [id number] [place] [phone] ve Date:Plan Name: 10/05/2017 Diane Primary Diane Gasca [id number] Insurance:ANTHEMPolicy LeckroneDOB: [facility] Number: [id number] Regional Hospital [id number] [place]ository [place] [address]Bjs: ve Date:[id number] [address]QNMGPVX, [place] () [address]XH: 10/05/2017 Secondary NOT GIVENUNK [place] Insurance:SELF PAY [facility] Number: Effective Repository Date:2017-10-05
== END ==
PROVIDERS: Family Provider Family Medicine; PCP Family Medicine; Referring Provider Family Medicine; Visit Provider Family Medicine
DX: Z12.31 Encounter for screening mammogram for malignant neoplasm of breast (principal)
CPT/HCPCS: 77063; 77067

== ENCOUNTER → 2019-06-18 10:09 | Outpatient (CLI) | payer BC, SELFPAY ==
[2019-06-18 12:53] LABS: Vitamin D,25 Hydroxy 22.6 ng/mL (29.95-100.01)
[2019-06-18 12:54] LABS: Anion Gap 3 (5-15); BUN 9 mg/dL (7-18); BUN/Creat Ratio 12.6 RATIO (10-20); Calcium,Total 8.7 mg/dL (8.5-10.1); Chloride 106 mmol/L (98-107); Cholesterol 191 mg/dL (200); Creatinine, Serum 0.71 mg/dL (0.55-1.02); EST Glomerular Filtration Rate 92 mL/min (>60); Est Glom Filt Rate - Afr Amer 111 mL/min (>60); Glucose 79 mg/dL (74-106); High Density Lipoprotein 57 mg/dL; Potassium 3.8 mmol/L (3.5-5.1); Sodium Level 137 mmol/L (136-145); Triglycerides 78 mg/dL; Very Low Density Lipoprotein 16 mg/dL (5-40)
== END ==
PROVIDERS: Family Provider Family Medicine; PCP Family Medicine; Referring Provider Family Medicine; Visit Provider Family Medicine
DX: Z00.00 Encounter for general adult medical examination without abnormal findings (principal); E55.9 Vitamin D deficiency, unspecified
CPT/HCPCS: 36415; 80048; 80061; 82306

== ENCOUNTER → 2019-08-05 09:58 | Outpatient (CLI) | payer BC, SELFPAY ==
--- NOTE | 2019-08-05 10:02 | BI_ITS ---
MAMMOGRAPHY - BILATERAL SCREENING REASON FOR EXAM: Female, 48 years old. Routine annual screening examination. PERTINENT HISTORY: Non-contributory. TECHNIQUE: Digital bilateral breast felice (3D mammographic acquisition) in the CC and MLO projections. 2-D mediolateral oblique (MLO) and craniocaudad (CC) views of both breasts were obtained. CAD: Full Field Digital Mammography with Computer Added Detection was performed. COMPARISON: Comparison is made with prior study dated July 25, 2018. FINDINGS: Breast Composition: The breasts are heterogeneously dense, which may obscure small masses. There are no dominant masses or suspicious calcifications. Stable small benign-appearing bilateral axillary lymph nodes. No other significant abnormalities are identified. There has been no significant change since the prior study. BI/SCREEN MAMM (CAD) W/FELICE BILAT IMPRESSION: Stable bilateral screening mammogram. Yearly follow-up mammogram recommended. (A) ASSESSMENT CATEGORY: BIRADS Category 2: Benign. A letter regarding these results will be sent to the patient by the facility within 30 days. Approximately 10% of breast cancers are not detected by mammography. A normal mammogram should not delay biopsy of a clinically suspicious abnormality. [id number] Electronically Signed: Arnold Ferraro, at 12:21 EST , Service support ,
--- NOTE | 2019-08-05 10:04 | BD_ITS ---
STUDY: DUAL ENERGY X-RAY ABSORPTIOMETRY / DXA REASON FOR EXAM: Female, 48 years old. The patient is postmenopausal. Loss of height. TECHNIQUE: Bone Mineral Density (BMD) measurements of lumbar spine and bilateral hips were obtained. COMPARISON: None. FINDINGS: Lumbar Spine (L1-L4): g/cm2 (1.246) / T-score (0.6) / Z-score (1.0) Findings are suggestive of normal bone density with a low fracture risk. Left Femur Total: g/cm2 (1.144) / T-score (1.1) / Z-score (1.6) Left Femoral Neck: g/cm2 (1.026) / T-score (-0.1) / Z-score (0.7) Right Femur Total: g/cm2 (1.028) / T-score (0.2) / Z-score (0.7) Right Femoral Neck: g/cm2 (1.054) / T-score (0.1) / Z-score (0.9) BD/Dexa Bone Density Study IMPRESSION: The patient is considered normal as outlined below according to World Sam Organization (WHO) criteria with a low fracture risk. Reference Information: The T-score is the number of standard deviations above or below the standard which is normal for young adults at their peak bone mineral density. The World Health Organization (WHO) interprets the T-scores as follows: Above -1 Normal bone density Between -1 and -2.5 Osteopenia Equal to / or below -2.5 Osteoporosis As a practical clinical guideline, osteopenia may be graded as follows: Mild -1 through -1.5 Moderate -1.6 through -2.0 Severe -2.1 through -2.4 The Z-score is the number of standard deviations above or below age-matched controls. A Z-score of less than -1.5 would be considered abnormal. References: 1. NIH Osteoporosis and Related Bone Diseases http://www.osteo.org 2. International Society for Clinical Densitometry http://www.iscd.org 3. National Osteoporosis Foundation http://www.nof.org Electronically Signed: Arnold Ferraro, at 9:37 EST , Service support ,
== END ==
PROVIDERS: Family Provider Family Medicine; PCP Family Medicine; Referring Provider Family Medicine; Visit Provider Family Medicine
DX: Z12.31 Encounter for screening mammogram for malignant neoplasm of breast (principal); E55.9 Vitamin D deficiency, unspecified
CPT/HCPCS: 77063; 77067; 77080

== ENCOUNTER → 2020-03-18 17:37 | Outpatient (CLI) | payer BC, SELFPAY | PROVIDERS: PCP Family Medicine; Referring Provider Nurse Practitioner Family; Visit Provider Nurse Practitioner Family | DX: J02.9 Acute pharyngitis, unspecified (principal) | CPT/HCPCS: 87635; U0003 ==

== ENCOUNTER → 2020-06-11 14:35 | Outpatient (CLI) | payer BC, SELFPAY ==
[2020-06-11 17:49] LABS: Vitamin D,25 Hydroxy 45.2 ng/mL
[2020-06-11 17:53] LABS: Anion Gap 5 (5-15); BUN 13 mg/dL (7-18); Calcium,Total 8.8 mg/dL (8.5-10.1); Chloride 105 mmol/L (98-107); Cholesterol 251 mg/dL (200); Creatinine, Serum 0.81 mg/dL (0.55-1.02); EST Glomerular Filtration Rate 79 mL/min (>60); Est Glom Filt Rate - Afr Amer 96 mL/min (>60); Glucose 71 mg/dL (74-106); High Density Lipoprotein 71 mg/dL; Potassium 3.9 mmol/L (3.5-5.1); Sodium Level 138 mmol/L (136-145); Triglycerides 88 mg/dL; Very Low Density Lipoprotein 18 mg/dL (5-40)
== END ==
PROVIDERS: PCP Family Medicine; Referring Provider Family Medicine; Visit Provider Family Medicine
DX: Z00.00 Encounter for general adult medical examination without abnormal findings (principal); E55.9 Vitamin D deficiency, unspecified
CPT/HCPCS: 36415; 80048; 80061; 82306

== ENCOUNTER → 2020-08-03 16:30 | Outpatient (CLI) | payer BC, SELFPAY | PROVIDERS: PCP Family Medicine; Visit Provider Nurse Practitioner Family | DX: R43.2 Parageusia (principal) | CPT/HCPCS: 87635; U0003 ==

== ENCOUNTER → 2020-08-25 11:27 | Outpatient (CLI) | payer BC, SELFPAY ==
--- NOTE | 2020-08-25 11:32 | RAD_ITS ---
STUDY: X-RAY CHEST REASON FOR EXAM: Female, 49 years old. fatigue and shortness of breath x 1 month TECHNIQUE: PA and lateral views of the chest. COMPARISON: 10/12/2013 FINDINGS: The lungs are clear and expanded. There is no demonstrated pleural abnormality. Normal size heart. Normal mediastinum and meka. Normal visualized pulmonary arteries. Normal visualized aortic arch and descending thoracic aorta. Normal visualized thoracic spine. Normal visualized ribs, clavicles, and shoulders. There is no demonstrated abnormality of the visualized soft tissue structures of the upper abdomen. RAD/Chest PA and Lateral IMPRESSION: Normal x-ray examination of the chest. Electronically Signed: Michael Mckinnon MD ([facility]) at 13:00 EST , Service support ,
[2020-08-25 15:44] LABS: Hematocrit 42.4 % (37-47); Hemoglobin 13.5 g/dL (12.0-15.0); Mean Corp Hgb Conc 31.8 g/dL (32-36); Mean Corpuscular Hgb 29.3 pg (27.0-32.0); Mean Platelet Vol. 12.1 fl (6.2-12.0); Platelet Count 298 K/mm3 (150-450); RBC Distribution Width CV 13.4 % (11.6-14.6); RBC Distribution Width SD 45.6 fl (35.1-43.9); Red Blood Count 4.61 M/mm3 (4.2-5.4); White Blood Count 5.5 K/mm3 (4.4-11.0)
[2020-08-25 16:06] LABS: Anion Gap 6 (5-15); BUN 11 mg/dL (7-18); BUN/Creat Ratio 14.2 RATIO (10-20); Chloride 108 mmol/L (98-107); Creatinine, Serum 0.77 mg/dL (0.55-1.02); EST Glomerular Filtration Rate 83 mL/min (>60); Est Glom Filt Rate - Afr Amer 101 mL/min (>60); Glucose 61 mg/dL (74-106); Potassium 3.6 mmol/L (3.5-5.1); Sodium Level 138 mmol/L (136-145); Thyroid Stim Hormone (TSH) 2.34 uIU/mL (0.358-3.74)
[2020-08-26 07:13] LABS: SARS-COV-2 TOTAL ABS Reactive (Nonreactive)
== END ==
PROVIDERS: PCP Family Medicine; Referring Provider Family Medicine; Visit Provider Family Medicine
DX: R06.02 Shortness of breath (principal); R53.83 Other fatigue
CPT/HCPCS: 36415; 71046; 80048; 84443; 85027; 86769

== ENCOUNTER → 2020-11-22 14:22 | Outpatient (CLI) | payer BC, SELFPAY ==
[2020-11-22 17:45] LABS: Absolute Lymphocyte Count 1.12 X10^3/uL (0.83-4.51); Absolute Neutrophil Count 1.3 X10^3/uL (2.0-7.7); Basophil# 0.01 X10^3/uL; Basophil% 0.3 % (0-1); Eosinophil# 0.14 X10^3/uL; Eosinophils% 4.8 % (0-5); Hematocrit 43.9 % (37-47); Hemoglobin 14.3 g/dL (12.0-15.0); Lymphocyte # 1.12 X10^3/ul (4.0); Lymphocyte % 38.5 % (19-41); Mean Corp Hgb Conc 32.6 g/dL (32-36); Mean Corpuscular Hgb 30.4 pg (27.0-32.0); Mean Corpuscular Volume 93.2 fL (81-99); Monocyte# 0.38 X10^3/uL; Monocyte% 13.1 % (0-10); NRBC Flagged by Analyzer 0 % (0-5); Neutrophil # 1.25 X10^3/uL (2.7-7.7); Platelet Count 257 K/mm3 (150-450); RBC Distribution Width SD 48.4 fl (35.1-43.9); Red Blood Count 4.71 M/mm3 (4.2-5.4); White Blood Count 2.9 K/mm3 (4.4-11.0)
[2020-11-22 18:03] LABS: AST(SGOT) 22 U/L (15-37); Alanine Aminotransfer ALT/SGPT 32 U/L (13-56); Albumin, Serum 3.7 g/dL (3.2-5.0); Alkaline Phosphatase 102 U/L (45-117); Amylase 32 U/L (25-115); Anion Gap 5 (5-15); BUN 11 mg/dL (7-18); BUN/Creat Ratio 15.2 RATIO (10-20); Bilirubin, Direct 0.12 mg/dL (0.00-0.30); Chloride 109 mmol/L (98-107); Creatinine, Serum 0.72 mg/dL (0.55-1.02); EST Glomerular Filtration Rate 90 mL/min (>60); Est Glom Filt Rate - Afr Amer 109 mL/min (>60); Globulin 3.6 g/dL (2.2-4.2); Glucose 70 mg/dL (74-106); Potassium 4.5 mmol/L (3.5-5.1); Protein, Total 7.3 g/dL (6.4-8.2); Sodium Level 140 mmol/L (136-145)
== END ==
PROVIDERS: PCP Family Medicine; Referring Provider Family Medicine; Visit Provider Nurse Practitioner Family
DX: R19.7 Diarrhea, unspecified (principal)
CPT/HCPCS: 36415; 80048; 80076; 82150; 85025

== ENCOUNTER → 2020-11-23 13:48 | Outpatient (CLI) | payer BC, SELFPAY | LOC: LABSPEC 13:50 | PROVIDERS: PCP Family Medicine; Referring Provider Family Medicine; Visit Provider Nurse Practitioner Family | DX: R19.7 Diarrhea, unspecified (principal) | CPT/HCPCS: 87493; 87506 ==

== ENCOUNTER 2021-09-23 15:27 | Outpatient (CLI) | payer OTHER, SELFPAY ==
--- NOTE | 2021-09-23 15:32 | RAD_ITS ---
STUDY: XR Knee Complete 4 Views or More 09/23/2021 4:09 PM REASON FOR EXAM: Female, 50 years old. PAIN TECHNIQUE: XR Knee Complete 4 Views or More COMPARISON: None. FINDINGS: Normal visualized distal femur. Normal visualized proximal tibia and fibula. Normal proximal tibiofibular articulation. Normal medial femorotibial compartment. Normal lateral femorotibial compartment. Normal patellofemoral articulation. The soft tissue structures are unremarkable. RAD/Knee 4 or More Views IMPRESSION: There are no acute findings. Electronically Signed: Jesse Jewell MD at 16:10 EST ,
--- NOTE | 2021-09-23 15:32 | RAD_ITS ---
STUDY: XR Shoulder Min 2 Views REASON FOR EXAM: Female, 50 years old. PAIN TECHNIQUE: XR Shoulder Min 2 Views COMPARISON: None. FINDINGS: Normal glenohumeral articulation. Normal acromioclavicular joint. Normal acromion. Normal humeral head and visualized proximal humerus. The soft tissue structures are unremarkable. Normal visualized pulmonary apex. RAD/Shoulder min 2 Views IMPRESSION: There are no acute findings of the shoulder. Electronically Signed: Jesse Jewell MD at 16:11 EST ,
== END 2021-09-23 23:59 | disposition short-term general hospital (02) ==
LOC: MTRAD 15:30
PROVIDERS: PCP Family Medicine; Referring Provider Family Medicine; Visit Provider Family Medicine
DX: S49.91XA Unspecified injury of right shoulder and upper arm, initial encounter (principal); S89.92XA Unspecified injury of left lower leg, initial encounter
CPT/HCPCS: 73030; 73564

== ENCOUNTER → 2022-05-26 | Outpatient (CLI) | payer OTHER, SELFPAY ==
[2022-05-26 15:13] LABS: Absolute Neutrophil Count 2.8 X10^3/uL (2.0-7.7); Basophil# 0.02 X10^3/uL; Basophil% 0.4 % (0-1); Eosinophil# 0.08 X10^3/uL; Eosinophils% 1.5 % (0-5); Hematocrit 40.5 % (37-47); Hemoglobin 12.9 g/dL (12.0-15.0); Lymphocyte % 35.9 % (19-41); Mean Corp Hgb Conc 31.9 g/dL (32-36); Mean Corpuscular Hgb 29.9 pg (27.0-32.0); Mean Platelet Vol. 11.9 fl (6.2-12.0); Monocyte# 0.51 X10^3/uL; Monocyte% 9.6 % (0-10); NRBC Flagged by Analyzer 0 % (0-5); Neutrophil # 2.77 X10^3/uL (2.7-7.7); Neutrophil % 52.4 % (47-70); Platelet Count 270 K/mm3 (150-450); RBC Distribution Width SD 48.7 fl (35.1-43.9); Red Blood Count 4.31 M/mm3 (4.2-5.4); White Blood Count 5.3 K/mm3 (4.4-11.0)
[2022-05-26 15:29] LABS: CRP < 2.90 mg/L (0.0-3.0); Rheumatoid Factor < 10.0 IU/mL (<15)
[2022-05-26 15:41] LABS: Erythrocyte Sedimentation Rate 7 mm/hr (0-30)
[2022-05-29 14:36] LABS: ANTINUCLEAR ANTIBODIES DIRECT Negative (Negative)
== END | disposition home or self-care (01) ==
LOC: MTLAB 11:31
PROVIDERS: PCP Family Medicine; Referring Provider Family Medicine; Visit Provider Family Medicine
DX: M25.50 Pain in unspecified joint (principal)
CPT/HCPCS: 36415; 85025; 85652; 86038; 86140; 86431

== ENCOUNTER → 2023-06-20 | Outpatient (CLI) | payer OTHER, SELFPAY ==
[2023-06-20 16:03] LABS: Absolute Lymphocyte Count 1.95 X10^3/uL (0.83-4.51); Absolute Neutrophil Count 2.7 X10^3/uL (2.0-7.7); Basophil# 0.02 X10^3/uL; Basophil% 0.4 % (0-1); Eosinophil# 0.04 X10^3/uL; Eosinophils% 0.8 % (0-5); Hematocrit 46.5 % (37-47); Hemoglobin 14.6 g/dL (12.0-15.0); Lymphocyte # 1.95 X10^3/ul (0.83-4.51); Lymphocyte % 38.5 % (19-41); Mean Corp Hgb Conc 31.4 g/dL (32-36); Mean Corpuscular Hgb 29.2 pg (27.0-32.0); Mean Platelet Vol. 11.5 fl (6.2-12.0); Monocyte# 0.36 X10^3/uL; Monocyte% 7.1 % (0-10); NRBC Flagged by Analyzer 0 % (0-5); Neutrophil # 2.67 X10^3/uL (2.7-7.7); Neutrophil % 52.8 % (47-70); POSITIVE MORPHOLOGY YES; Platelet Count 391 K/mm3 (150-450); RBC Distribution Width CV 13.7 % (11.6-14.6); RBC Distribution Width SD 46.7 fl (35.1-43.9); White Blood Count 5.1 K/mm3 (4.4-11.0)
[2023-06-20 16:17] LABS: Differential Indicated SCAN CRITERIA MET
[2023-06-20 16:26] LABS: ALB/GLOB Ratio 0.9 RATIO (0.9-2.4); AST(SGOT) 15 U/L (15-37); Alanine Aminotransfer ALT/SGPT 21 U/L (13-56); Albumin, Serum 3.9 g/dL (3.2-5.0); Alkaline Phosphatase 117 U/L (45-117); Anion Gap 6 (5-15); BUN 13 mg/dL (7-18); BUN/Creat Ratio 13.8 RATIO (10-20); Calcium,Total 9.6 mg/dL (8.5-10.1); Chloride 105 mmol/L (98-107); Creatinine, Serum 0.94 mg/dL (0.55-1.02); EST Glomerular Filtration Rate 65 mL/min (>60); Est Glom Filt Rate - Afr Amer 79 mL/min (>60); Globulin 4.4 g/dL (2.2-4.2); Glucose 97 mg/dL (74-106); Potassium 4.4 mmol/L (3.5-5.1); Protein, Total 8.3 g/dL (6.4-8.2); Sodium Level 137 mmol/L (136-145)
[2023-06-20 16:44] LABS: Atypical Lymphocyte 1+ %; Platelet Estimate ADEQUATE (ADEQ); Red Cell Morphology N CHROM NORMAL (NORM C&C)
[2023-06-20 16:45] LABS: Anisocytosis RARE; Macrocytosis RARE
== END | disposition home or self-care (01) ==
PROVIDERS: PCP Family Medicine; Visit Provider Family Medicine
DX: R19.7 Diarrhea, unspecified (principal)
CPT/HCPCS: 36415; 80053; 85025; 87506

== ENCOUNTER → 2024-03-07 | Outpatient (CLI) | payer OTHER, SELFPAY ==
[2024-03-07 11:07] LABS: Anion Gap 6 (5-15); BUN 17 mg/dL (7-18); BUN/Creat Ratio 20.2 RATIO (10-20); Calcium,Total 9.3 mg/dL (8.5-10.1); Chloride 106 mmol/L (98-107); Cholesterol 238 mg/dL (200); Creatinine, Serum 0.84 mg/dL (0.55-1.02); EST Glomerular Filtration Rate 74 mL/min (>60); Est Glom Filt Rate - Afr Amer 90 mL/min (>60); Glucose 91 mg/dL (74-106); High Density Lipoprotein 55 mg/dL; Potassium 3.8 mmol/L (3.5-5.1); Sodium Level 138 mmol/L (136-145); Triglycerides 111 mg/dL; Very Low Density Lipoprotein 22 mg/dL (5-40)
== END | disposition home or self-care (01) ==
LOC: MTLAB 07:56
PROVIDERS: PCP Family Medicine; Referring Provider Family Medicine; Visit Provider Family Medicine
DX: I10 Essential (primary) hypertension (principal)
CPT/HCPCS: 36415; 80048; 80061

== ENCOUNTER → 2024-04-14 | Outpatient (CLI) | payer OTHER, SELFPAY ==
[2024-04-14 18:10] LABS: Anion Gap 6 (5-15); BUN 12 mg/dL (7-18); BUN/Creat Ratio 13.5 RATIO (10-20); Calcium,Total 9.3 mg/dL (8.5-10.1); Chloride 103 mmol/L (98-107); Creatinine, Serum 0.89 mg/dL (0.55-1.02); EST Glomerular Filtration Rate 70 mL/min (>60); Est Glom Filt Rate - Afr Amer 85 mL/min (>60); Glucose 95 mg/dL (74-106); Potassium 3.7 mmol/L (3.5-5.1); Sodium Level 135 mmol/L (136-145)
== END | disposition home or self-care (01) ==
LOC: MTRAD 15:43
PROVIDERS: PCP Family Medicine; Referring Provider Family Medicine; Visit Provider Family Medicine
DX: I10 Essential (primary) hypertension (principal)
CPT/HCPCS: 36415; 80048

== ENCOUNTER → 2024-09-01 | Outpatient (CLI) | payer OTHER, SELFPAY ==
[2024-09-01 18:42] LABS: AST(SGOT) 13 U/L (15-37); Alanine Aminotransfer ALT/SGPT 17 U/L (13-56); Albumin, Serum 3.8 g/dL (3.2-5.0); Alkaline Phosphatase 102 U/L (45-117); Anion Gap 2 (5-15); BUN 12 mg/dL (7-18); Calcium,Total 9.2 mg/dL (8.5-10.1); Chloride 107 mmol/L (98-107); Cholesterol 217 mg/dL (200); EST Glomerular Filtration Rate 61 mL/min (>60); Est Glom Filt Rate - Afr Amer 74 mL/min (>60); Globulin 3.7 g/dL (2.2-4.2); Glucose 79 mg/dL (74-106); High Density Lipoprotein 66 mg/dL; Potassium 3.8 mmol/L (3.5-5.1); Protein, Total 7.5 g/dL (6.4-8.2); Sodium Level 140 mmol/L (136-145); Triglycerides 124 mg/dL; Very Low Density Lipoprotein 25 mg/dL (5-40)
== END | disposition home or self-care (01) ==
LOC: MTLAB 16:41
PROVIDERS: PCP Family Medicine; Referring Provider Family Medicine; Visit Provider Family Medicine
DX: E78.5 Hyperlipidemia, unspecified (principal)
CPT/HCPCS: 36415; 80053; 80061

== ENCOUNTER → 2025-01-30 | Outpatient (CLI) | payer OTHER, SELFPAY ==
--- NOTE | 2025-01-30 16:27 | RAD_ITS ---
PROCEDURE: KNEE 4 OR MORE VIEWS 01/30/2025 REASON FOR EXAM: KNEE PAIN TECHNIQUE: 4 view(s) of the right knee COMPARISON: 09/23/2021 FINDINGS: See impression RAD/Knee 4 or More Views IMPRESSION: Negative for acute fracture or malalignment. No significant joint effusion. S mall tricompartmental marginal osteophytes without significant joint space narrowing. Reading Location: [facility]
--- OUTSIDE RECORDS SUMMARY | 2025-01-30 19:21 | XMS RPT_ITS | CCD ---
Author Organization [facility] [place] ion [facility] Care Team Providers Care Technical Product Manager Name Role Phone SHEREE, TRAY E Unavailable Unavailable SHEREE, TRAY E Unavailable Unavailable SHEREETRAY E Unavailable Unavailable ALONZO NELSON MD Unavailable Unavailable PROVIDER, UNKNOWN Unavailable Unavailable COPE, YAZAN DPM Unavailable Unavailable COPETYLERYA DPM Unavailable Unavailable YAZAN COPE DPM Unavailable Unavailable ALONZO NELSON MD Unavailable Unavailable PROVIDER, UNKNOWN Unavailable Unavailable NELSONALONZO Unavailable Unavailable NELSONALONZO Unavailable Unavailable NELSONALONZO Unavailable Unavailable NELSONALONZO GRIGGS MD Unavailable Unavailable PROVIDER, UNKNOWN Unavailable Unavailable NELSONALONZO GRIGGS MD Unavailable Unavailable LATOUF, RACHEL KO Unavailable Unavailable LATOUF, RACHEL KO Unavailable Unavailable LATOUF, RACHEL KO Unavailable Unavailable NELSONALONZO MD Unavailable Unavailable PROVIDER, UNKNOWN Unavailable Unavailable DIDKRISSY BLUM DO Unavailable Unavailable DIDKRISSY BLUM DO Unavailable Unavailable KRISSY AKHTAR DO Unavailable Unavailable Alonzo Nelson Primary Care Provider Alonzo Nelson MD Primary Care Provider Alonzo Nelson Attending Unavailable Alonzo Nelson Primary Care Unavailable Alonzo Nelson Referring Unavailable Alonzo Nelson Attending Unavailable Alonzo Nelson Primary Care Unavailable Alonzo Nelson Referring Unavailable Alonzo Nelosn Attending Unavailable Alonzo Nelson Primary Care Unavailable Alonzo Nelson Referring Unavailable RENATE ARIAS Attending Unavailable Allergies Allergy Classification Reported Allergen(s) Allergy Type Date of Onset Reaction(s) Facility (4 sources) Nkda [Other] Propensity to adverse reactions 12-19-2002 [facility] Medications Current Medications Medication Drug Class(es) Dates Sig (Normalized) Sig (Original) acetaminophen 325 mg / oxyCODONE hydrochloride 5 mg oral tablet (2 sources) Opioid Agonist Start: 04-03-2014 take 1 tablet by mouth every four hours as needed Oxycodone-Acetamin ophen Active 1 - 2 TABLET PO EVERY 4 HOURS NEEDED April 03, 2014 12:00am docusate sodium 100 mg oral capsule (2 sources) Start: 04-03-2014 take 1 capsule by mouth once daily as needed Docusate Sodium (Colace) 100 MG capsule Active 100 MG PO DAILY NEEDED April 03, 2014 12:00am metroNIDAZOLE 500 mg oral tablet (2 sources) Nitroimidazole Antimicrobial Start: 04-03-2014 take 500 mg by mouth twice daily Metronidazole Active 500 MG PO TWICE A DAY April 03, 2014 12:00am sertraline 100 mg oral tablet (6 sources) Serotonin Reuptake Inhibitor Start: 09-12-2012 take 100 mg by mouth once daily Sertraline Active 100 MG PO DAILY October 12, 2013 1:00am Comment on above: once daily. Completed/Discontinued Medications Medication Drug Class(es) Dates Sig (Normalized) Sig (Original) cholecalciferol 0.1 mg oral capsule (3 sources) Vitamin D take 1 capsule by mouth once daily cholecalciferol, vitamin D3, (VITAMIN D3) 100 mcg (4,000 unit) cap Take 4,000 Units by mouth once daily. 0 Active Comment on above: Take 4,000 Units by mouth once daily. Gatorade Sports Drink (3 sources) Start: 11-30-2020 Gatorade Sports Drink Indications: Diarrhea, unspecified type Use as directed for Miralax / Gatorade Bowel Prep Kit 64 oz 0 11/30/2020 Active Comment on above: Use as directed for Miralax / Gatorade Bowel Prep Kit Naproxen (4 sources) Nonsteroidal Anti-inflammatory Drug NAPROXEN SODIUM (ALEVE ORAL) Take by mouth. 0 Active Comment on above: Take by mouth. polyethylene glycol 3350 04377 mg powder for oral solution (3 sources) Osmotic Laxative Start: 11-30-2020 polyethylene glycol 3350 (MIRALAX, GLYCOLAX) 17 gram/dose powder Indications: Diarrhea, unspecified type Use as directed for Miralax / Gatorade Bowel Prep Kit 238 g 0 11/30/2020 Active Comment on above: Use as directed for Miralax / Gatorade Bowel Prep Kit rosuvastatin calcium 5 mg oral tablet (3 sources) HMG-CoA Reductase Inhibitor take 1 tablet by mouth once daily rosuvastatin (CRESTOR) 5 mg tablet Take 5 mg by mouth once daily. 0 Active Comment on above: Take 5 mg by mouth o nce daily. Problems Active Problems Problem Classification Problem Date Documented Date Episodic/Chronic Cardiac dysrhythmias (6 sources) Ventricular premature beats; Translations: [Ventricular premature depolarization] Onset: 10-16-2013 10-16-2013 Chronic Disorders of lipid metabolism (2 sources) Hyperlipidemia; Translations: [Hyperlipidemia, unspecified] Onset: 09-22-2024 Chronic Esophageal disorders (4 sources) Gastroesophageal reflux disease; Translations: [Gastro-esophageal reflux disease without esophagitis] Onset: 03-29-2013 03-29-2013 Chronic Essential hypertension (1 source) Essential (primary) hypertension; Translations: [Essential (primary) hypertension] Onset: 04-30-2024 Chronic Mood disorders (1 source) Mild major depression, single episode; Translations: [Major depressive disorder, single episode, mild] Chronic Other non-traumatic joint disorders (1 source) Multiple joint pain; Translations: [Pain in unspecified joint] Episodic Other nutritional; endocrine; and metabolic disorders (3 sources) Body mass index 30+ - obesity; Translations: [Obesity, unspecified] Chronic Other screening for suspected conditions (not mental disorders or infectious disease) (3 sources) Patient encounter status; Translations: [Encounter for screening for cardiovascular disorders] Episodic Other upper respiratory infections (2 sources) Acute pharyngitis, unspecified; Translations: [Acute pharyngitis, unspecified] Onset: 10-15-2024 Episodic Residual codes; unclassified (2 sources) Chills (without fever); Translations: [Chills (without fever)] Onset: 10-15-2024 Episodic Residual codes; unclassified (2 sources) Pain, unspecified; Translations: [Pain, unspecified] Onset: 10-15-2024 Episodic Unclassified (1 source) Acute cough; Translations: [Acute cough] Onset: 10-15-2024 Past or Other Problems Problem Classification Problem Date Documented Da te Episodic/Chronic Abdominal pain (4 sources) Right upper quadrant pain; Translations: [Right upper quadrant pain] Onset: 03-29-2013 03-29-2013 Episodic Biliary tract disease (4 sources) Biliary dyskinesia; Translations: [Other specified diseases of gallbladder] Onset: 05-27-2013 05-27-2013 Episodic Nausea and vomiting (4 sources) Nausea; Translations: [Nausea] Onset: 03-29-2013 03-29-2013 Episodic Nonspecific chest pain (7 sources) Chest pain, unspecified; Translations: [Atypical chest pain] Onset: 10-16-2013 10-16-2013 Episodic Other gastrointestinal disorders (4 sources) Diarrhea; Translations: [Diarrhea, unspecified] Onset: 03-29-2013 03-29-2013 Episodic Other non-traumatic joint disorders (3 sources) Pain in left shoulder; Translations: [Pain in left shoulder] Onset: 10-25-2017 Episodic Residual codes; unclassified (5 sources) History of radiofrequency ablation operation for arrhythmia; Translations: [Other specified postprocedural states] Onset: 10-16-2013 10-16-2013 Episodic Sprains and strains (3 sources) Sprain of other ligament of right ankle, subsequent encounter; Translations: [Sprain of other ligament of right ankle, subsequent encounter] Onset: 07-04-2017 Episodic Unclassified (1 source) Acute cough; Translations: [Acute cough] Onset: 10-15-2024 Results Test Name Value Interpretation Reference Range Facility Office Visiton 10-15-2024 Follow-up visit [id number] Adi Angelo paul 1970 F Date Provider Department Center 10/15/2024 [id number] ARIAS MG BERGMAN None No family history on file Level of Service:62176 MD OFFICE/OUTPATIENT NEW LOW MDM 30 MINUTES Reason for Visit and Comments: URI [115] - 5 day, cough, chills, fever, yellow mucus, sneezing, ba, not able to taste, chest pain Normal [facility] Progress Noteon 10-15-2024 Progress Note Subjective: Patient: Diane Angelo is a 54 y.o. female Patient presents urgent care for complaints of cough, chills, body aches, fever, and chest congestion for the past 5 days. Highest fever was around 100 ?F. Cough has been productive with yellow mucus. Denies any wheezing, shortness of breath, or chest pain. She does feel congestion in chest. She has had some diarrhea. Denies any nausea/vomiting or abdominal pain. States sore throat but denies any difficulty swallowing. Denies any ear pain or headache. has had similar symptoms. Patient denies any history of asthma or breathing issues. She has been taking OTC cold medicine with minimal improvement. Review of Systems Constitutional: Positive for activity change, chills, fatigue and fever (see HPI). HENT: Positive for congestion (nasal and chest), postnasal drip, rhinorrhea and sore throat. Negative for ear discharge, ear pain, facial swelling, sinus pressure, sinus pain, trouble swallowing and voice change. Eyes: Negative for discharge. Respiratory: Positive for cough (Productive, yellow mucus, see HPI). Negative for chest tightness, shortness of breath and wheezing. Cardiovascular: Negative for chest pain. Gastrointestinal: Positive for diarrhea. Negative for abdominal pain, nausea and vomiting. Musculoskeletal: Positive for myalgias (Generalized body aches). Skin: Negative for color change, pallor, rash and wound. Allergic/Immunologic: Negative for environmental allergies, food allergies and immunocompromised state. Neurological: Negative for dizziness, syncope, weakness, light-headedness and headaches. No Known Allergies Current Outpatient Medications on File Prior to Visit Medication Sig Dispense Refill lisinopril-hydroCHLOROthiazi de 10-12.5 MG tablet rosuvastatin (Crestor) 5 MG tablet sertraline (Zoloft) 100 MG tablet Take 100 mg by mouth daily. No current facility-administered medications on file prior to visit. No past medical history on file. Social History Tobacco Use Smoking status: Not on file Smokeless tobacco: Not on file Substance Use Topics Alcohol use: Not on file Objective: BP 124/82 (BP Location: Left arm, Patient Position: Sitting) Pulse 76 Temp 36.3 ?C (97.3 ?F) Resp 16 Ht 5' 6 (1.676 m) Wt 199 lb (90.3 kg) SpO2 98% BMI 32.12 kg/m? Physical Exam Vitals and nursing note reviewed. Constitutional: General: She is not in acute distress. Appearance: Normal appearance. She is ill-appearing (Mildly ill-appearing, appears tired). She is not toxic-appearing. HENT: Head: Normocephalic. Right Ear: Tympanic membrane, ear canal and external ear normal. There is no impacted cerumen. Left Ear: Tympanic membrane, ear canal and external ear normal. There is no impacted cerumen. Nose: Congestion and rhinorrhea present. Right Sinus: No maxillary sinus tenderness or frontal sinus tenderness. Left Sinus: No maxillary sinus tenderness or frontal sinus tenderness. Mouth/Throat: Mouth: Mucous membranes are moist. Pharynx: Uvula midline. Posterior oropharyngeal erythema and postnasal drip (clear) present. No pharyngeal swelling, oropharyngeal exudate or uvula swelling. Tonsils: No tonsillar exudate or tonsillar abscesses. 2+ on the right. 2+ on the left. Comments: Patent airway. Swallowing without difficulty. Managing secretions. No trismus. No muffled voice. Cardiovascular: Rate and Rhythm: Normal rate and regular rhythm. Heart sounds: Normal heart sounds. No murmur heard. Pulmonary: Effort: Pulmonary effort is normal. No respiratory distress. Breath sounds: Normal breath sounds. No wheezing. Comments: Respirations even and unlabored. No accessory muscle use. Patient speaking in complete sentences without difficulty. Deep, moist cough throughout visit. Musculoskeletal: Cervical back: Neck supple. Lymphadenopathy: Cervical: No cervical adenopathy. Skin: General: Skin is warm and dry. Neurological: Mental Status: She is alert and oriented to person, place, and time. Gait: Gait normal. Psychiatric: Mood and Affect: Mood normal. Behavior: Behavior normal. Thought Content: Thought content normal. Judgment: Judgment normal. Assessment 1. Chills 2. Body aches 3. Acute cough 4. Sore throat Plan Diagnoses and all orders for this visit: Chills - AMB POC RAPID INFLUENZA DNA/RNA Body aches - AMB POC RAPID INFLUENZA DNA/RNA Acute cough - AMB POC RAPID INFLUENZA DNA/RNA - benzonatate (Tessalon Perles) 100 MG capsule; Take 1 capsule (100 mg) by mouth 3 times daily as needed for cough for up to 7 days. Do not crush or chew. Sore throat - dexAMETHasone (Decadron) injection 10 mg Patient negative for influenza in office. Through shared decision making, we decided to forego COVID-19 testing at this time as it would likely not change treatment course. Patient has had symptoms for the past 5 to 6 days. Suspect the patient may have had (more content not included)... Normal [facility] Comprehensive Metabolic Prof [facility] 09-01-2024 Albumin [Mass/Vol] 3.8 g/dL Normal 3.2-5.0 [facility] Comment on above: Performed By: #### L 500.4050, L500.4100 #### [facility] [address] [place], [address] Albumin/Globulin [Mass ratio] 1.0 {ratio} Normal 0.9-2.4 [facility] Comment on above: Performed By: #### L 500.4050, L500.4100 #### [facility] [address] [place], [address] ALK P 102 U/L Normal 45-117 [facility] Comment on above: Performed By: #### L 500.4050, L500.4100 #### [facility] [address] [place], [address] ALT [Catalytic activity/Vol] 17 U/L Normal 13-56 [facility] Comment on above: Performed By: #### L 500.4050, L500.4100 #### [facility] [address] [place], [address] AST [Catalytic activity/Vol] 13 U/L Low 15-37 [facility] Comment on above: Performed By: #### L 500.4050, L500.4100 #### [facility] [address] [place], [address] Bilirubin [Mass/Vol] 0.40 mg/dL Normal 0.20-1.00 [facility] Comment on above: Result Comment: For patients on eltrombopag therapy, use of Dimension [place] TBIL is not recommended. Performed By: #### L 500.4050, L500.4100 #### [facility] [address] [place], [address] BUN/CRE 12.0 RATIO Normal 10-20 [facility] Comment on above: Performed By: #### L 500.4050, L500.4100 #### [facility] [address] [place], [address] CA,Total 9.2 mg/dL Normal 8.5-10.1 [facility] Comment on above: Performed By: #### L 500.4050, L500.4100 #### [facility] [address] [place], [address] Chloride [Moles/Vol] 107 mmol/L Normal 98-107 [facility] Comment on above: Performed By: #### L 500.4050, L500.4100 #### [facility] [address] [place], [address] CO2 [Moles/Vol] 30.0 mmol/L Normal 21.0-32.0 [facility] Comment on above: Performed By: #### L 500.4050, L500.4100 #### [facility] [address] [place], [address] Creatinine [Mass/Vol] 1.00 mg/dL Normal 0.55-1.02 [facility] Comment on above: Result Comment: The validity of the calculated GFR GFRAA in patients over 70 years has not been determined. Clinical correlation is essential. Performed By: #### L 500.4050, L500.4100 #### [facility] [address] [place], [address] EST GFR - AA 74 mL/min Normal >60 [facility] Comment on above: Result Comment: Afri can Anguillan GFR Calc Performed By: #### L 500.4050, L500.4100 #### [facility] [address] [place], [address] GAP 2 Low 5-15 [facility] Comment on above: Performed By: #### L 500.4050, L500.4100 #### [facility] [address] [place], [address] GFR/1.73 sq M.predicted among non-blacks MDRD (S/P/Bld) [Vol rate/Area] 61 mL/min/{1.73_m2} Normal >60 [facility] Comment on above: Result Comment: Non- GFR Calc Performed By: #### L 500.4050, L500.4100 #### [facility] [address] [place], [address] Globulin (S) [Mass/Vol] 3.7 g/dL Normal 2.2-4.2 [facility] Comment on above: Performed By: #### L 500.4050, L500.4100 #### [facility] [address] [place], [address] Glucose [Mass/Vol] 79 mg/dL Normal 74-106 [facility] Comment on above: Performed By: #### L 500.4050, L500.4100 #### [facility] [address] [place], [address] Potassium [Moles/Vol] 3.8 mmol/L Normal 3.5-5.1 [facility] Comment on above: Performed By: #### L 500.4050, L500.4100 #### [facility] [address] [place], [address] Sodium [Moles/Vol] 140 mmol/L Normal 136-145 [facility] Comment on above: Performed By: #### L 500.4050, L500.4100 #### [facility] [address] [place], [address] T PROT 7.5 g/dL Normal 6.4-8.2 [facility] Comment on above: Performed By: #### L 500.4050, L500.4100 #### [facility] [address] [place], [address] Urea nitrogen [Mass/Vol] 12 mg/dL Normal 7-18 [facility] Comment on above: Performed By: #### L 500.4050, L500.4100 #### [facility] [address] [place], [address] Lipid Profileon 09-01-2024 Cholesterol [Mass/Vol] 217 mg/dL High 200 [facility] Comment on above: Result Comment: <200 mg/dL Desirable 200-240 mg/dL Borderline >240 mg/dL High Risk Performed By: #### L 500.4050, L500.4100 #### [facility] [address] [place], [address] Cholesterol in HDL [Mass/Vol] 66 mg/dL Normal [facility] Comment on above: Result Comment: The drugs N-Acetylcysteine and Metamizole may falsely depress this assay. Reference Range HDL <40 mg/dL Low HDL Cholesterol HDL >or= 60 mg/dL High HDL Cholesterol Performed By: #### L 500.4050, L500.4100 #### [facility] [address] [place], [address] Cholesterol in LDL [Mass/Vol] 126 mg/dL Normal 0-130 [facility] Comment on above: Performed By: #### L 500.4050, L500.4100 #### [facility] [address] [place], [address] Cholesterol in VLDL [Mass/Vol] 25 mg/dL Normal 5-40 [facility] Comment on above: Performed By: #### L 500.4050, L500.4100 #### [facility] [address] [place], [address] Triglyceride [Mass/Vol] 124 mg/dL Normal [facility] Comment on above: Result Comment: The drugs N-Acetylcysteine and Metamizole may falsely depress this assay. Serum Triglycerides Reference Interval Normal <150 mg/dL Borderline high 150 - 199 mg/dL High 200 - 499 mg/dL Very High > or = 500 mg/dL Performed By: #### L 500.4050, L500.4100 #### [facility] [address] [place], [address] Basic Metabolic Profile (BMP )on 04-14-2024 BUN/CRE 13.5 RATIO Normal 10-20 [facility] Comment on above: Performed By: #### L 500.2500 #### [facility] [address] [place], [address] CA,Total 9.3 mg/dL Normal 8.5-10.1 [facility] Comment on above: Performed By: #### L 500.2500 #### [facility] [address] [place], [address] Chloride [Moles/Vol] 103 mmol/L Normal 98-107 [facility] Comment on above: Performed By: #### L 500.2500 #### [facility] [address] [place], [address] CO2 [Moles/Vol] 26.0 mmol/L Normal 21.0-32.0 [facility] Comment on above: Performed By: #### L 500.2500 #### [facility] [address] [place], [address] Creatinine [Mass/Vol] 0.89 mg/dL Normal 0.55-1.02 [facility] Comment on above: Result Comment: The validity of the calculated GFR GFRAA in patients over 70 years has not been determined. Clinical correlation is essential. Performed By: #### L 500.2500 #### [facility] [address] [place], [address] EST GFR - AA 85 mL/min Normal >60 [facility] Comment on above: Result Comment: Afri can Anguillan GFR Calc Performed By: #### L 500.2500 #### [facility] [address] [place], [address] GAP 6 Normal 5-15 [facility] Comment on above: Performed By: #### L 500.2500 #### [facility] [address] [place], [address] GFR/1.73 sq M.predicted among non-blacks MDRD (S/P/Bld) [Vol rate/Area] 70 mL/min/{1.73_m2} Normal >60 [facility] Comment on above: Result Comment: Non- GFR Calc Performed By: #### L 500.2500 #### [facility] [address] [place], [address] Glucose [Mass/Vol] 95 mg/dL Normal 74-106 [facility] Comment on above: Performed By: #### L 500.2500 #### [facility] [address] [place], [address] Potassium [Moles/Vol] 3.7 mmol/L Normal 3.5-5.1 [facility] Comment on above: Performed By: #### L 500.2500 #### [facility] [address] [place], [address] Sodium [Moles/Vol] 135 mmol/L Low 136-145 [facility] Comment on above: Performed By: #### L 500.2500 #### [facility] [address] [place], [address] Urea nitrogen [Mass/Vol] 12 mg/dL Normal 7-18 [facility] Comment on above: Performed By: #### L 500.2500 #### [facility] [address] [place], [address] Basic Metabolic Profile (BMP )on 03-07-2024 BUN/CRE 20.2 RATIO High 10-20 [facility] Comment on above: Performed By: #### L 500.4100, L500.2500 #### [facility] [address] [place], [address] CA,Total 9.3 mg/dL Normal 8.5-10.1 [facility] Comment on above: Performed By: #### L 500.4100, L500.2500 #### [facility] [address] [place], [address] Chloride [Moles/Vol] 106 mmol/L Normal 98-107 [facility] Comment on above: Performed By: #### L 500.4100, L500.2500 #### [facility] [address] [place], [address] CO2 [Moles/Vol] 26.0 mmol/L Normal 21.0-32.0 [facility] Comment on above: Performed By: #### L 500.4100, L500.2500 #### [facility] [address] [place], [address] Creatinine [Mass/Vol] 0.84 mg/dL Normal 0.55-1.02 [facility] Comment on above: Result Comment: The validity of the calculated GFR GFRAA in patients over 70 years has not been determined. Clinical correlation is essential. Performed By: #### L 500.4100, L500.2500 #### [facility] [address] [place], [address] EST GFR - AA 90 mL/min Normal >60 [facility] Comment on above: Result Comment: Afri can Anguillan GFR Calc Performed By: #### L 500.4100, L500.2500 #### [facility] [address] [place], [address] GAP 6 Normal 5-15 [facility] Comment on above: Performed By: #### L 500.4100, L500.2500 #### [facility] [address] [place], [address] GFR/1.73 sq M.predicted among non-blacks MDRD (S/P/Bld) [Vol rate/Area] 74 mL/min/{1.73_m2} Normal >60 [facility] Comment on above: Result Comment: Non- GFR Calc Performed By: #### L 500.4100, L500.2500 #### [facility] [address] [place], [address] Glucose [Mass/Vol] 91 mg/dL Normal 74-106 [facility] Comment on above: Performed By: #### L 500.4100, L500.2500 #### [facility] [address] [place], [address] Potassium [Moles/Vol] 3.8 mmol/L Normal 3.5-5.1 [facility] Comment on above: Performed By: #### L 500.4100, L500.2500 #### [facility] [address] [place], [address] Sodium [Moles/Vol] 138 mmol/L Normal 136-145 [facility] Comment on above: Performed By: #### L 500.4100, L500.2500 #### [facility] [address] [place], [address] Urea nitrogen [Mass/Vol] 17 mg/dL Normal 7-18 [facility] Comment on above: Performed By: #### L 500.4100, L500.2500 #### [facility] [address] [place], [address] Lipid Profileon 03-07-2024 Cholesterol [Mass/Vol] 238 mg/dL High 200 [facility] Comment on above: Result Comment: <200 mg/dL Desirable 200-240 mg/dL Borderline >240 mg/dL High Risk Performed By: #### L 500.4100, L500.2500 #### [facility] [address] [place], [address] Cholesterol in HDL [Mass/Vol] 55 mg/dL Normal [facility] Comment on above: Result Comment: The drugs N-Acetylcysteine and Metamizole may falsely depress this assay. Reference Range HDL <40 mg/dL Low HDL Cholesterol HDL >or= 60 mg/dL High HDL Cholesterol Performed By: #### L 500.4100, L500.2500 #### [facility] [address] [place], [address] Cholesterol in LDL [Mass/Vol] 161 mg/dL High 0-130 [facility] Comment on above: Performed By: #### L 500.4100, L500.2500 #### [facility] [address] [place], [address] Cholesterol in VLDL [Mass/Vol] 22 mg/dL Normal 5-40 [facility] Comment on above: Performed By: #### L 500.4100, L500.2500 #### [facility] [address] [place], [address] Triglyceride [Mass/Vol] 111 mg/dL Normal [facility] Comment on above: Result Comment: The drugs N-Acetylcysteine and Metamizole may falsely depress this assay. Serum Triglycerides Reference Interval Normal <150 mg/dL Borderline high 150 - 199 mg/dL High 200 - 499 mg/dL Very High > or = 500 mg/dL Performed By: #### L 500.4100, L500.2500 #### [facility] [address] [place], [address] Absolute lymphocyte countOrd ered By: Alonzo Nelson on 06-20-2023 Lymphocytes Auto (Unsp spec) [#/Vol] 1.95 10*3/uL 0.83-4.51 [facility] Basophil percentageOrdered B y: Alonzo Nelson on 06-20-2023 Basophils/100 WBC (Bld) 0.4 % 0-1 [facility] Bilirubin [Mass/Vol] 0.40 mg/dL 0.20-1.00 [facility] Comment on above: For patients on eltr ombopag therapy, use of Dimension [place] TBIL is not recommended. Chloride [Moles/Vol] 105 mmol/L 98-107 [facility] Eosinophils/100 WBC (Bld) 0.8 % 0-5 [facility] Glucose [Mass/Vol] 97 mg/dL 74-106 [facility] Neutrophils (Bld) [#/Vol] 2.7 10*3/uL 2.0-7.7 [facility] Neutrophils/100 WBC (Bld) 52.8 % 47-70 [facility] Potassium [Moles/Vol] 4.4 mmol/L 3.5-5.1 [facility] Protein [Mass/Vol] 8.3 g/dL 6.4-8.2 [facility] Sodium [Moles/Vol] 137 mmol/L 136-145 [facility] WBC (Bld) [#/Vol] 5.1 10*3/uL 4.4-11.0 [facility] Blood erythrocytes count (nu mber/volume)Ordered By: Alonzo Nelson on 06-20-2023 RBC (Bld) [#/Vol] 5.00 10*6/uL 4.2-5.4 [facility] Blood hemoglobin measurement (mass/volume)Ordered By: Alonzo Nelson on 06-20-2023 Hemoglobin (Bld) [Mass/Vol] 14.6 g/dL 12.0-15.0 [facility] Blood lymphocytes/100 leukoc ytesOrdered By: Alonzo Nelson on 06-20-2023 Lymphocytes/100 WBC (Bld) 38.5 % 19-41 [facility] Blood monocytes/100 leukocyt esOrdered By: Alonzo Nelson on 06-20-2023 Monocytes/100 WBC (Bld) 7.1 % 0-10 [facility] Blood platelet adequacy dete ction by light microscopyOrdered By: Alonzo Nelson on 06-20-2023 Platelets LM Ql (Bld) ADEQUATE ADEQ [facility] Blood platelet mean volumeOr dered By: Alonzo Nelson on 06-20-2023 Platelet mean volume (Bld) [Entitic vol] 11.5 fL 6.2-12.0 [facility] Determination of erythrocyte mean corpuscular volume (MCV)Ordered By: Alonzo Nelson on 06-20-2023 MCV (RBC) [Entitic vol] 93.0 fL 81-99 [facility] Gastrointestinal pathogens p sybil OSKAR+probe (Stl)Ordered By: Alonzo Nelson on 06-20-2023 Enteric Bacteriology [facility] Hematocrit Auto (Bld) [Volum e fraction]Ordered By: Alonzo Nelson on 06-20-2023 Hematocrit (Bld) [Volume fraction] 46.5 % 37-47 [facility] - Chemistry and C hemistry - challengeOrdered By: Alonzo Nelson on 06-20-2023 ALP [Catalytic activity/Vol] 117 U/L 45-117 [facility] ALT [Catalytic activity/Vol] 21 U/L 13-56 [facility] CO2 [Moles/Vol] 26.0 mmol/L 21.0-32.0 [facility] Globulin (S) [Mass/Vol] 4.4 g/dL 2.2-4.2 [facility] Urea nitrogen/Creatinine [Mass ratio] 13.8 mg/mg 10-20 [facility] - Hematology and Cell countsOrdered By: Alonzo Nelson on 06-20-2023 Anisocytosis Ql (Bld) RARE [facility] Erythrocyte distribution width (RBC) [Entitic vol] 46.7 fL 35.1-43.9 [facility] Erythrocyte distribution width (RBC) [Ratio] 13.7 % 11.6-14.6 [facility] Immature granulocytes/100 WBC (Bld) 0.400 % 0.0-0.9 [facility] Comment on above: IG% - Immature Granu locytes (promyelocytes, myelocytes and metamyelocytes) > 1% indicates that a LEFT SHIFT is Present. MCH (RBC) [Entitic mass] 29.2 pg 27.0-32.0 [facility] Nucleated RBC/100 WBC (Bld) [Ratio] 0 % 0-5 [facility] MCHC Auto (RBC) [Mass/Vol]Or dered By: Alonzo Nelson on 06-20-2023 MCHC (RBC) [Mass/Vol] 31.4 g/dL 32-36 [facility] Macrocytes detectionOrdered By: Alonzo Nelson on 06-20-2023 Macrocytes Ql (Bld) RARE [facility] No Panel InformationOrdered By: Alonzo Nelson on 06-20-2023 Atypical Lymphocytes 1+ % [facility] Estimated GFR (MDRD) Amer 79 mL/min >60 [facility] Comment on above: GFR Calc Estimated GFR (MDRD) Non-Af Amer 65 mL/min >60 [facility] Comment on above: Non- GFR Calc Platelets bldOrdered By: Sharmila Nelson on 06-20-2023 Platelets (Bld) [#/Vol] 391 10*3/uL 150-450 [facility] RBC morphologyOrdered By: Scottie Nelson on 06-20-2023 RBC morphology finding Nom (Bld) N CHROM NORMAL NORM C&C [facility] Serum or plasma albumin chandrika urement (mass/volume)Ordered By: Alonzo Nelson on 06-20-2023 Albumin [Mass/Vol] 3.9 g/dL 3.2-5.0 [facility] Serum or plasma albumin/glob ulin mass ratioOrdered By: Alonzo Nelson on 06-20-2023 Albumin/Globulin [Mass ratio] 0.9 {ratio} 0.9-2.4 [facility] Serum or plasma calcium chandrika urement (mass/volume)Ordered By: Alonzo Nelson on 06-20-2023 Calcium [Mass/Vol] 9.6 mg/dL 8.5-10.1 [facility] Serum or plasma creatinine m easurement (mass/volume)Ordered By: Alonzo Nelson on 06-20-2023 Creatinine [Mass/Vol] 0.94 mg/dL 0.55-1.02 [facility] Comment on above: The validity of the calculated GFR & GFRAA in patients over 70 years has not been determined. Clinical correlation is essential. Serum or plasma urea nitroge n measurement (mass/volume)Ordered By: Alonzo Nelson on 06-20-2023 Urea nitrogen [Mass/Vol] 13 mg/dL 7-18 [facility] Thin prep Papanicolaou smear with manual screeningOrdered By: Alonzo Nelson on 06-20-2023 Thin prep Papanicolaou smear with manual screening 15 U/L 15-37 [facility] Thin prep Papanicolaou smear with manual screening 6 5-15 [facility] Absolute lymphocyte counton 05-26-2022 Lymphocytes Auto (Unsp spec) [#/Vol] 1.90 10*3/uL 0.83-4.51 [facility] Work Phone: Basophil percentageon 2021 Basophils/100 WBC (Bld) 0.4 % 0-1 [facility] Work Phone: Eosinophils/100 WBC (Bld) 1.5 % 0-5 [facility] Work Phone: Neutrophils (Bld) [#/Vol] 2.8 10*3/uL 2.0-7.7 [facility] Work Phone: Neutrophils/100 WBC (Bld) 52.4 % 47-70 [facility] Work Phone: WBC (Bld) [#/Vol] 5.3 10*3/uL 4.4-11.0 [facility] Work Phone: [phone] Blood erythrocytes count (nu mber/volume)on 05-26-2022 RBC (Bld) [#/Vol] 4.31 10*6/uL 4.2-5.4 [facility] Work Phone: Blood hemoglobin measurement (mass/volume)on 05-26-2022 Hemoglobin (Bld) [Mass/Vol] 12.9 g/dL 12.0-15.0 [facility] Work Phone: Blood lymphocytes/100 leukoc yteson 05-26-2022 Lymphocytes/100 WBC (Bld) 35.9 % 19-41 [facility] Work Phone: Blood monocytes/100 leukocyt eson 05-26-2022 Monocytes/100 WBC (Bld) 9.6 % 0-10 [facility] Work Phone: Blood platelet mean volumeon 05-26-2022 Platelet mean volume (Bld) [Entitic vol] 11.9 fL 6.2-12.0 [facility] Work Phone: [phone] Determination of erythrocyte mean corpuscular volume (MCV)on 05-26-2022 MCV (RBC) [Entitic vol] 94.0 fL 81-99 [facility] Work Phone: Erythrocyte sedimentation ra dorita 05-26-2022 ESR (Bld) [Velocity] 7 mm/h 0-30 [facility] Work Phone: [phone] Hematocrit Auto (Bld) [Volum e fraction]on 05-26-2022 Hematocrit (Bld) [Volume fraction] 40.5 % 37-47 [facility] Work Phone: Laboratory - Hematology and Cell countson 05-26-2022 Erythrocyte distribution width (RBC) [Entitic vol] 48.7 fL 35.1-43.9 [facility] Work Phone: Erythrocyte distribution width (RBC) [Ratio] 14.0 % 11.6-14.6 [facility] Work Phone: Immature granulocytes/100 WBC (Bld) 0.200 % 0.0-0.9 [facility] Work Phone: Comment on above: IG% - Immature Granu locytes (promyelocytes, myelocytes and metamyelocytes) > 1% indicates that a LEFT SHIFT is Present. MCH (RBC) [Entitic mass] 29.9 pg 27.0-32.0 [facility] Work Phone: Nucleated RBC/100 WBC (Bld) [Ratio] 0 % 0-5 [facility] Work Phone: MCHC Auto (RBC) [Mass/Vol]on 05-26-2022 MCHC (RBC) [Mass/Vol] 31.9 g/dL 32-36 [facility] Work Phone: No Panel Informationon 05-26 Anti-Nuclear Antibody Screen Negative Negative [facility] Work Phone: Comment on above: Performed at: [address] [id number] Director: Ab Vergara PhD, Phone: [phone] Platelets bldon 05-26-2022 Platelets (Bld) [#/Vol] 270 10*3/uL 150-450 [facility] Work Phone: Serum or plasma C reactive p rotein measurement (mass/volume)on 05-26-2022 CRP [Mass/Vol] mg/L 0.0-3.0 [facility] Work Phone: Comment on above: C-Reactive Protein ( CRP) provides useful information for thediagnosis, therapy and monitoring of inflammatory processesand associated diseases. For the evaluation of Relative Riskfor Cardiovascular Disease, a High Sensitivity CRP (HSCRP)should be ordered. Serum rheumatoid factor dete ctionon 05-26-2022 Rheumatoid factor Ql (S) < 10.0 IU/mL <15 [facility] Work Phone: CT CALCIUM SCORING SELF Otf n 03-17-2022 CT CALCIUM SCORING SELF PAY * * *Final Report* * * DATE OF EXAM: Mar 17 2022 2:09PM [facility] – [place] 2104 - CT CALCIUM SCORING SELF PAY / PROCEDURE REASON: Z13.6-Encounter for screening for cardiovascular disorders * * * * Physician Interpretation * * * * CT Coronary Calcium Score HISTORY: 51 years old Female with concern for coronary artery disease. There is need to assess risk of cardiovascular events. TECHNIQUE: SCANNER: Multi-detector CT technology was employed (Siemens Definition Edge multi-slice scanner). PROTOCOL: Sequential imaging with prospective triggering and 3-mm slice reconstruction was performed without contrast administration. The scan range extended from the ana to the base of the heart. Scan acquisition was uncomplicated. CT Dose-Length Product (DLP): [address] Dose Reduction Employed: Yes For optimization of anatomic evaluation, off-line postprocessing was performed on a dedicated workstation by the interpreting physician. RESULT: Potential study limitations: None. CHEST: visualized chest wall anatomy: Unremarkable. Visualized Lungs: Unremarkable. Visualized Mediastinum and Pericardium: Small mediastinal lymph nodes that are not pathologic by size criteria. Central pulmonary arteries: Unremarkable. CARDIAC CHAMBERS: Assessment is limited in the non-contrast enhanced study. Overall normal dimensions. No mitral annular calcification. AORTA: Assessment of aortic valve anatomy is limited in the current study. No leaflet calcification identified. Aortic Root and visualized segments of the Ascending and Descending Thoracic Aorta: Normal dimensions. The aortic arch is not included in the current study. No calcified atherosclerotic changes of the aortic wall identified. CORONARY ARTERIES: Normal origins. Calcium Score (Agatston): LM: 0 LAD: 0 LCx: 0 RCA: 0 Total: 0 UPPER ABDOMEN: The limited images of the upper abdomen reveal no abnormalities of the visualized organs. BONES: No destructive osseous lesions. IMPRESSION: 1. Total Coronary Calcium Score (CAC) = 0. Senior Product Integrity Engineer: BLADIMIR Transcribe Date/Time: Mar 17 2022 2:58P Dictated by : RAQUEL TIDWELL MD This examination was interpreted and the report reviewed and electronically signed by: RAQUEL TIDWELL MD on Mar 17 2022 4:35PM EST [id number] [facility] CT CALCIUM SCORING SELF PAY ([place])on 03-17-2022 [facility] CNOVon 03-13-2022 CNOV Office Visit (WELLME ) DIANE ANGELO ([id number]) 1970 F Date Time Provider Department 03/13/22 10:00 AM ROSEMARY JAMES During your visit today, we recorded the following information about you: Rosemary James APRN.STAFF [employer] OFFICER 03/13/2022 9:59 AM Signed PATIENT INSTRUCTIONS: Get blood work done at your earliest convenience. Diet: - Sign up for the Eating Well for Optimal Health Shared Medial Appointment. To sign up call [phone]. - Consider adopting an Anti-Inflammatory Diet (Mediterannean Diet) to help relieve pain and joint inflammation. Physical Activity: - Consider getting yourself a pedometer to help track your steps. (3DFitBud). Goal is 10,000 steps per day. - For cardiovascular health and weight loss, strive to get 150 minutes of cardio in each week (brisk walking, jogging, swimming, elliptical etc.) Sleep: - How to optimize your circadian rhythm and energy levels: - Keep a regular sleep-wake cycle. Go to bed at the same time every night and wake up at the same time every morning. - Avoid bright light exposure 45 minutes before bed (this includes overhead lights, TV's, phones, computers, etc.) You want your environment to be as dim as possible before sleep. Do not sleep with the TV on. - Within 30 minutes of waking up, go outside for 5 minutes. The bright natural light (even on a cloudy day) will reset your circadian rhythm and spike your cortisol. (Morning cortisol spikes are good!) - Eat breakfast within 2 hours of waking up and stop eating 2-3 hours before going to bed. Stress/Mental and Emotional Wellbeing: - Schedule an appointment with one of our Holistic Psychotherapists. To schedule, call [phone]. Supplements: - Consider starting a once daily women's multivitamin. This is particularly important if you are not meeting the national dietary recommendations of 2 servings of fruits and 4 servings of vegetables per day. When purchasing supplements, it is always best to purchase from a physical store rather than online. Shop at local supplement stores if possible. If purchasing products online I recommend you shop on [employer] or the [facility]'s [employer] store at [email or web address] [employer] [email or web address]/collections/sup plements. Choose supplements with Good Manufacturing Processing and third green party testing. Common brands that have baseclick, NSF and/or RETIREMENT certified products include: World [employer], NeuWave Medicals, Integrative Therapeutics, Metagenics, Life Extension, Wynona Naturals, The Vitamin Shoppe, Nature's Way, Hydrobee's Bounty, Orthomolecular, Doctor's Best, Jeimy Herbs, Garden of Life, MegaFood, Solaray, Jarrow, NOW. Start taking supplements one at a time as prescribed and wait three days before starting another supplement. If you develop any rashes, swelling, difficulty breathing or any other concerning symptoms, stop taking the supplement and seek immediate medical attention. Follow up in 6 months. HALFWAY LIFESTYLE GOALS DISCUSSED TODAY: Diet Whole foods, plant-based diet focusing on a wide variety of vegetables, fruits, legumes, whole grains, nuts and seeds. Some nutrient dense, minimally processed animal products can supplement the predominantly plant-based diet. Avoid highly processed foods and products containing added sugar and sodium. Physical Activity Move often throughout the day and sit less. Break up long periods of sitting with frequent standing, walking and stretching. Try to get 150 minutes of moderate intensity exercise (brisk walking, hiking, weight lifting, swimming) per week. Sleep Practice healthy sleep hygiene techniques and strive for a full 7-9 hours of sleep per night. Try to go to bed and wake up at the same time each day and avoid eating, watching TV or looking at screens 1-2 hours before sleep. Stress Avoid lifestyle behaviors that the body identifies as stressful including: sleep deprivation, over-exercising, prolonged fasting, exposure to toxins (like cigarettes), and poor diet. Practice techniques like mindfulness, meditation, journaling or yoga on a regular basis so your body is more equipped to handle the unavoidable external stressors of life. Community Social isolation and loneliness can have significant negative health consequences. Cultivate connections with others by both giving and receiving social support and nurturing existing relationships with those around you. Participate in community programs, muslim services or volunteer opportunities to nourish your sense of purpose and belonging. Environmental Exposures Be aware of the toxins found in our environment and consciously reduce exposure. Avoid Paul cookware and plastic. When possible, eat organic, drink filtered water and use personal care products with a high safety rating. View safety ratings on the Environmental Working Gr (more content not included)... Normal [facility] CBC panel Auto (Bld)on 03-03 Erythrocyte distribution width (RBC) [Ratio] 13.8 % Normal 11.5-15.0 [facility] Comment on above: Order Comment: Gabrielle arita Type: BLOOD SPECIMEN Ordering Facility: [facility] Address: [address] [address] Performed By: #### 5 8410-2 #### [facility] CLIA [id number] [address] [place] [address] [place] Hematocrit (Bld) [Volume fraction] 38.9 % Normal 36.0-46.0 [facility] Comment on above: Order Comment: Gabrielle arita Type: BLOOD SPECIMEN Ordering Facility: [facility] Address: [address] [address] Performed By: #### 5 8410-2 #### СВЕТЛАНАNYLA [facility] CLIA [id number] [address] [place] [address] [place] Hemoglobin (Bld) [Mass/Vol] 12.8 g/dL Normal 11.5-15.5 [facility] Comment on above: Order Comment: Gabrielle arita Type: BLOOD SPECIMEN Ordering Facility: [facility] Address: [address] [address] Performed By: #### 5 8410-2 #### [facility] CLIA [id number] [address] [place] [address] MCH (RBC) [Entitic mass] 30.0 pg Normal 26.0-34.0 [facility] Comment on above: Order Comment: Speci men Type: BLOOD SPECIMEN Ordering Facility: [facility] Address: [address] [place] [address] Performed By: #### 5 8410-2 #### [facility] CLIA [id number] [address] [place] [address] MCHC (RBC) [Mass/Vol] 32.9 g/dL Normal 30.5-36.0 [facility] Comment on above: Order Comment: Speci men Type: BLOOD SPECIMEN Ordering Facility: [facility] Address: [address] [place] [address] Performed By: #### 5 8410-2 #### [facility] CLIA [id number] [address] [place] [address] MCV (RBC) [Entitic vol] 91.3 fL Normal 80.0-100.0 [facility] Comment on above: Order Comment: Speci men Type: BLOOD SPECIMEN Ordering Facility: [facility] Address: [address] [place] [address] Performed By: #### 5 8410-2 #### [facility] CLIA [id number] [address] [place] [address] Nucleated RBC (Bld) [#/Vol] 10*3/uL Normal <0.01 [facility] Comment on above: Order Comment: Speci men Type: BLOOD SPECIMEN Ordering Facility: [facility] Address: [address] [place] [address] Performed By: #### 5 8410-2 #### [facility] CLIA [id number] [address] [place] [address] Platelet mean volume (Bld) [Entitic vol] 11.4 fL Normal 9.0-12.7 [facility] Comment on above: Order Comment: Speci men Type: BLOOD SPECIMEN Ordering Facility: [facility] Address: [address] [place] [address] Performed By: #### 5 8410-2 #### СВЕТЛАНАZachNYLA [facility] CLIA [id number] [address] [place] [address] [place] Platelets (Bld) [#/Vol] 282 10*3/uL Normal 150-400 [facility] Comment on above: Order Comment: Speci men Type: BLOOD SPECIMEN Ordering Facility: [facility] Address: [address] [place] [address] Performed By: #### 5 8410-2 #### [facility] CLIA [id number] [address] [place] [address] [place] RBC (Bld) [#/Vol] 4.26 10*6/uL Normal 3.90-5.20 [facility] Comment on above: Order Comment: Speci men Type: BLOOD SPECIMEN Ordering Facility: [facility] Address: [address] [place] [address] Performed By: #### 5 8410-2 #### СВЕТЛАНАNYLA [facility] CLIA [id number] [address] [place] [address] [place] WBC (Bld) [#/Vol] 5.79 10*3/uL Normal 3.70-11.00 [facility] Comment on above: Order Comment: Speci men Type: BLOOD SPECIMEN Ordering Facility: [facility] Address: [address] [place] [address] Performed By: #### 5 8410-2 #### СВЕТЛАНАNYLA [facility] CLIA [id number] [address] [place] [address] [place] CK SerPl-cCncon 03-03-2022 CK [Catalytic activity/Vol] 54 U/L Normal 42-196 [facility] Comment on above: Order Comment: Speci men Type: BLOOD SPECIMEN Ordering Facility: [facility] Address: [address] [place], [place] [address] Performed By: #### 2 157-6, 3016-3 #### [facility] CLIA [id number] [address] [place] [address] [place] #### 21184-3 #### [facility] CLIA [id number] [address] [place] [address] STATES OF [facility] CLIA [id number] [address] [place] [address] [place] [facility] Comprehensive metabolic 2000 panelon 03-03-2022 Albumin [Mass/Vol] 4.2 g/dL Normal 3.9-4.9 [facility] Comment on above: Order Comment: Speci men Type: BLOOD SPECIMEN Ordering Facility: [facility] Address: [address] [place], [place] [address] Performed By: #### 1 9123-9, 92258-4 #### СВЕТЛАНАNYLA [facility] CLIA [id number] [address] [place] [address] [place] ALP [Catalytic activity/Vol] 103 U/L Normal 34-123 [facility] Comment on above: Order Comment: Speci men Type: BLOOD SPECIMEN Ordering Facility: [facility] Address: [address] [place], [place] [address] Performed By: #### 1 9123-9, 71937-9 #### [facility] CLIA [id number] [address] [place] [address] [place] ALT [Catalytic activity/Vol] 7 U/L Normal 7-38 [facility] Comment on above: Order Comment: Speci men Type: BLOOD SPECIMEN Ordering Facility: [facility] Address: [address] [place], [place] [address] Performed By: #### 1 9123-9, 97597-5 #### [facility] CLIA [id number] [address] [place] [address] [place] Anion gap [Moles/Vol] 11 mmol/L Normal 9-18 [facility] Comment on above: Order Comment: Speci men Type: BLOOD SPECIMEN Ordering Facility: [facility] Address: [address] [place] [address] Performed By: #### 1 9123-9, #### [facility] CLIA [id number] [address] [place] [address] [place] AST [Catalytic activity/Vol] 14 U/L Normal 13-35 [facility] Comment on above: Order Comment: Speci men Type: BLOOD SPECIMEN Ordering Facility: [facility] Address: [address] [place] [address] Performed By: #### 1 23-9, #### [facility] CLIA [id number] [address] [place] [address] [place] Bilirubin [Mass/Vol] 0.4 mg/dL Normal 0.2-1.3 [facility] Comment on above: Order Comment: Speci men Type: BLOOD SPECIMEN Ordering Facility: [facility] Address: [address] [place] [address] Performed By: #### 1 23-9, #### [facility] CLIA [id number] [place] [address] [place] Calcium [Mass/Vol] 8.9 mg/dL Normal 8.5-10.2 [facility] Comment on above: Order Comment: Speci men Type: BLOOD SPECIMEN Ordering Facility: [facility] Address: [address] [place], [place] [address] Performed By: #### 1 23-9, 65490-0 #### [facility] CLIA [id number] [address] [place] [address] [place] Chloride [Moles/Vol] 106 mmol/L High 97-105 [facility] Comment on above: Order Comment: Speci men Type: BLOOD SPECIMEN Ordering Facility: [facility] Address: [address] [place] [address] Performed By: #### 1 23-9, #### [facility] CLIA [id number] [address] [place] [address] [place] CO2 [Moles/Vol] 24 mmol/L Normal 22-30 [facility] Comment on above: Order Comment: Speci men Type: BLOOD SPECIMEN Ordering Facility: [facility] Address: [address] [place] [address] Performed By: #### 1 239, #### [facility] CLIA [id number] STATES [place] Creatinine [Mass/Vol] 0.84 mg/dL Normal 0.58-0.96 [facility] Comment on above: Order Comment: Speci men Type: BLOOD SPECIMEN Ordering Facility: [facility] Address: [address] [place] [address] Performed By: #### 1 239, #### [facility] CLIA [id number] [address] STATES OF [facility] ESTIMATED GLOMERULAR FILTRATION RATE 83 mL/min/1.73m??? Normal >=60 [facility] Comment on above: Order Comment: Speci men Type: BLOOD SPECIMEN Ordering Facility: [facility] Address: [address] [place] [address] Result Comment: Zulay mated Glomerular Filtration Rate (eGFR) is calculated using the 2020 CKD-EPI creatinine equation. This equation utilizes serum creatinine, sex, and age as parameters. The creatinine assay has traceable calibration to isotope dilution-mass spectrometry. Refer to KDIGO guidelines for clinical interpretation. In patients with unstable renal function, e.g. those with acute kidney injury, the eGFR may not accurately reflect actual GFR. Performed By: #### 1 9123-9, #### [facility] CLIA [id number] [address] [place] [address] [place] Glucose [Mass/Vol] 96 mg/dL Normal 74-99 [facility] Comment on above: Order Comment: Gabrielle arita Type: BLOOD SPECIMEN Ordering Facility: [facility] Address: [address] [place] [address] Result Comment: The [place] Diabetes Association (ADA) provides guidance for cutoff values for fasting glucose and random glucose. The ADA defines fasting as no caloric intake for at least 8 hours. Fasting plasma glucose results between 100 to 125 mg/dL indicate increased risk for diabetes (prediabetes). Fasting plasma glucose results greater than or equal to 126 mg/dL meet the criteria for diagnosis of diabetes. In the absence of unequivocal hyperglycemia, results should be confirmed by repeat testing. In a patient with classic symptoms of hyperglycemia or hyperglycemic crisis, random plasma glucose results greater than or equal to 200 mg/dL meet the criteria for diagnosis of diabetes. Reference: Standards of Medical Care in Diabetes 2016, [place] Diabetes Association. Diabetes Care. 2016.39(Suppl 1). Performed By: #### 1 9123-9, #### [facility] CLIA [id number] [address] [place] [address] [place] Potassium [Moles/Vol] 4.2 mmol/L Normal 3.7-5.1 [facility] Comment on above: Order Comment: Gabrielle arita Type: BLOOD SPECIMEN Ordering Facility: [facility] Address: [address] [place] [address] Performed By: #### 1 9123-9, 12308-7 #### [facility] CLIA [id number] [address] [place] [address] [place] Protein [Mass/Vol] 6.4 g/dL Normal 6.3-8.0 [facility] Comment on above: Order Comment: Gabrielle arita Type: BLOOD SPECIMEN Ordering Facility: [facility] Address: [address] [place] [address] Performed By: #### 1 9123-9, #### [facility] CLIA [id number] [address] [place] [address] [place] Sodium [Moles/Vol] 141 mmol/L Normal 136-144 [facility] Comment on above: Order Comment: Speci men Type: BLOOD SPECIMEN Ordering Facility: [facility] Address: [address] [place], [place] [address] Performed By: #### 1 9123-9, 85825-6 #### [facility] CLIA [id number] [address] [place] [address] [place] Urea nitrogen [Mass/Vol] 14 mg/dL Normal 7-21 [facility] Comment on above: Order Comment: Speci men Type: BLOOD SPECIMEN Ordering Facility: [facility] Address: [address] [place], [place] [address] Performed By: #### 1 9123-9, 62123-9 #### [facility] CLIA [id number] [address] [place] [address] [place] Lipid 1996 panelon 2 Cholesterol [Mass/Vol] 174 mg/dL Normal <200 [facility] Comment on above: Order Comment: Speci men Type: BLOOD SPECIMEN Ordering Facility: [facility] Address: [address] [place] [address] Result Comment: <200 mg/dL, Desirable 200-239 mg/dL, Borderline high >239 mg/dL, High Performed By: #### 2 157-6, 3016-3 #### [facility] CLIA [id number] [address] [place] [address] [place] #### 20824-4 #### [facility] CLIA [id number] [address] [place] [address] [place] [facility] CLIA [id number] [place] [address] [place] Cholesterol in HDL [Mass/Vol] 55 mg/dL Normal >39 [facility] Comment on above: Order Comment: Speci men Type: BLOOD SPECIMEN Ordering Facility: [facility] Address: [address] [place], [place] [address] Result Comment: 40-5 9 mg/dL, Acceptable >59 mg/dL, High: Negative risk factor for coronary heart disease <40 mg/dL, Low: Positive risk factor for coronary heart disease Performed By: #### 2 157-6, 3016-3 #### [facility] CLIA [id number] [address] [place] [address] OF [place] #### 21240-9 #### [facility] CLIA [id number] [address] [place] [address] [place] [facility] CLIA [id number] [address] [place] [address] Cholesterol in LDL [Mass/Vol] 106 mg/dL High <100 [facility] Comment on above: Order Comment: Speci men Type: BLOOD SPECIMEN Ordering Facility: [facility] Address: [address] [place] [address] Result Comment: <100 mg/dL, Optimal 100-129 mg/dL, Near optimal/above optimal 130-159 mg/dL, Borderline high 160-189 mg/dL, High >189 mg/dL, Very high Secondary prevention optimal LDL Cholesterol levels are recommended to be < 70 mg/dL Performed By: #### 2 157-6, 3016-3 #### [facility] CLIA [id number] [address] [place] [address] OF [place] #### 88409-3 #### [facility] CLIA [id number] [address] [place] [address] STATES OF [facility] CLIA [id number] [address] [place] [address] Cholesterol in LDL/Cholesterol in HDL [Mass ratio] 1.93 {ratio} Normal <2.54 [facility] Comment on above: Order Comment: Speci men Type: BLOOD SPECIMEN Ordering Facility: [facility] Address: [address] [place] [address] Result Comment: Refpieter cleary: 1. National Cholesterol Education Program ATP III Guideline At-A-Glance Quick Desk Reference: National Heart, Lung, and Blood Millen. National Institutes of Health. 2001: NIH Publication No. 01-3305. 2. An International Atherosclerosis Society position paper: global recommendations for the management of dyslipidemia: executive summary, Atherosclerosis. 2014: 232(2):410-413. Performed By: #### 2 157-6, 3016-3 #### [facility] CLIA [id number] [address] [place] [address] #### 69975-8 #### [facility] CLIA [id number] [address] [place] [address] LAB CLIA [id number] [address] [place] [address] Cholesterol in VLDL [Mass/Vol] 13 mg/dL Normal <30 [facility] Comment on above: Order Comment: Gabrielle arita Type: BLOOD SPECIMEN Ordering Facility: [facility] Address: [address] [place] [address] Performed By: #### 2 157-6, 3016-3 #### [facility] CLIA [id number] [address] [place] [address] #### 91656-7 #### [facility] CLIA [id number] [address] [place] [address] LAB CLIA [id number] [address] [place] [address] Cholesterol non HDL [Mass/Vol] 119 mg/dL Normal <130 [facility] Comment on above: Order Comment: Gabrielle arita Type: BLOOD SPECIMEN Ordering Facility: [facility] Address: [address] [place], [place] [phone] Result Comment: <130 mg/dL, Optimal 130-159 mg/dL, Near optimal/above optimal 160-189 mg/dL, Borderline high 190-219 mg/dL, High >219 mg/dL, Very high Secondary prevention optimal non HDL Cholesterol levels are recommended to be <100 mg/dL Performed By: #### 2 157-6, 3016-3 #### [facility] CLIA [id number] [address] [place] [address] [place] #### 01737-7 #### [facility] CLIA [id number] [address] [place] [address] OF [facility] CLIA [id number] [address] [place] [address] [place] Cholesterol.total/Ch olesterol in HDL [Mass ratio] 3.16 {ratio} Normal <5.10 [facility] Comment on above: Order Comment: Speci men Type: BLOOD SPECIMEN Ordering Facility: [facility] Address: [address] [place] [address] Performed By: #### 2 157-6, 3016-3 #### [facility] CLIA [id number] [address] [place] [address] [place] #### 36320-4 #### [facility] CLIA [id number] [address] [place] [address] OF [facility] CLIA [id number] [address] [place] [address] FASTING TIME 12 hrs Normal [facility] Comment on above: Order Comment: Speci men Type: BLOOD SPECIMEN Ordering Facility: [facility] Address: [address] [place] [address] Performed By: #### 2 157-6, 3016-3 #### [facility] CLIA [id number] [address] [place] [address] [place] #### 15028-2 #### [facility] CLIA [id number] [address] [place] [address] STATES OF [facility] CLIA [id number] [address] [place] [address] Triglyceride [Mass/Vol] 65 mg/dL Normal <150 [facility] Comment on above: Order Comment: Speci men Type: BLOOD SPECIMEN Ordering Facility: [facility] Address: [address] [place] [address] Result Comment: <150 mg/dL, Normal 150-199 mg/dL, Borderline high 200-499 mg/dL, High >499 mg/dL, Very high Performed By: #### 2 157-6, 3016-3 #### [facility] CLIA [id number] [address] [place] [address] [place] #### 62037-9 #### [facility] CLIA [id number] [address] [place] [address] LAB CLIA [id number] [address] [place] [address] OF [place] Magnesium SerPl-mCncon 03-03 Magnesium [Mass/Vol] 2.4 mg/dL High 1.7-2.3 [facility] Comment on above: Order Comment: Speci men Type: BLOOD SPECIMEN Ordering Facility: [facility] Address: [address] [place] [address] Performed By: #### 1 9123-9, 52696-5 #### [facility] CLIA [id number] [address] [place] [address] [place] TSH SerPl-aCncon 03-03-2022 TSH Qn 3.180 m[IU]/L Normal 0.270-4.200 [facility] Comment on above: Order Comment: Speci men Type: BLOOD SPECIMEN Ordering Facility: [facility] Address: [address] [place] [address] Performed By: #### 2 157-6, 3016-3 #### [facility] CLIA [id number] [address] [place] [address] [place] #### 40790-7 #### [facility] CLIA [id number] [address] [facility] [id number] [address] [facility] CLIA [id number] [address] [place] [address] [facility] CNOVon 02-28-2022 CNOV Office Visit (CARDST ) DIANE ANGELO ([id number]) 1970 F Date Time Provider Department 02/28/22 2:30 PM MARÍA ESTES During your visit today, we recorded the following information about you: Pulse Blood pressure Weight Height 71/minute 126/82 87.1 kg 1.702 m María Estes MD 02/28/2022 3:01 PM [facility] Vascular Millen Cassandra Akhtar Department of Cardiovascular Medicine SECTION OF [facility] CARDIOLOGY [facility] 02/28/2022 OUTPATIENT VISIT TYPE NEW Patient Patient is self-referral for the evaluation of fatigue and history of PVC ablation arrhythmia The consult note will be sent to the requesting provider using [facility] medical records. HISTORY OF PRESENT ILLNESS: Ms. Angelo is a 51 year old female who had ablation for PVCs [place] [address] Mitesh Huynh. The patient had no recurrent symptoms of palpitations but wanted to be checked out to make sure there is no complication from that procedure. She has no symptoms of chest pain. Patient has mild exertional shortness of breath. 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 Social History Tobacco Use - Smoking status: Never Smoker - Smokeless tobacco: Never Used Substance Use Topics - Alcohol use: No Comment: rarely - Drug use: No FAMILY HISTORY Problem Relation Age of Onset - other (stent) Mother - other (icd) Father - Diabetes Sister - Cancer Brother PAST MEDICAL HISTORY Diagnosis Date - Depression - Hyperlipemia - Lichen sclerosus - Low blood sugar PAST SURGICAL HISTORY Procedure Laterality Date - ABDOMINAL SURGERY HX - ABLATION S-V ARRYTHMIC FOCI, NO PUMP 08/27/2002 - ABLATION:VT W/TRANSSEPTAL 08/27/2002 - APPENDECTOMY 08/27/2006 - APPENDECTOMY HX - COLONOSCOPY FLX DX W/COLLJ SPEC WHEN PFRMD 12/28/2020 - ESOPHAGOGASTRODUODENOSCOPY TRANSORAL DIAGNOSTIC 12/28/2020 - LAPS SURG CHOLECYSTECTOMY W/CHOLANGIOGRAPHY 05/27/2013 Normal IOC - PAST SURGICAL HISTORY OF lap hysterectomy - VAGINAL HYSTERECTOMY REVIEW OF SYSTEMS: SYSTEMIC: No fever, chills, or change in weight or appetite HEENT: No recent change in vision or hearing. Respiratory: No hemoptysis, cough. CARDIOVASCULAR: See HPI. GI: No recent nausea, vomiting or diarrhea. : No recent hematuria or dysuria. SKIN: No recent itching or eruption. PSYCH: No recent active anxiety or depression. HEMATOLOGY/ONCOLOGY: No recent diagnosis of bleeding or cancer. ENDOCRINE: No recent polyuria or heat intolerance. NEURO: No recent TIA, stroke or seizures. RHEUMATOLOGY: No recent active connective tissue disease. Rest of the review of system is unremarkable. CURRENT MEDICATIONS: rosuvastatin (CRESTOR) 5 mg tablet Take 5 mg by mouth once daily. cholecalciferol, vitamin D3, (VITAMIN D3) 100 mcg (4,000 unit) cap Take 4,000 Units by mouth once daily. SERTRALINE 100 mg tablet once daily. polyethylene glycol 3350 (MIRALAX, GLYCOLAX) 17 gram/dose powder Use as directed for Miralax / Gatorade Bowel Prep Kit Gatorade Sports Drink Use as directed for Miralax / Gatorade Bowel Prep Kit NAPROXEN SODIUM (ALEVE ORAL) Take by mouth. ALLERGIES Allergen Reactions - Nkda [Other] PHYSICAL EXAM: BP 126/82 Pulse 71 Ht 5' 7 (1.70m) Wt 192 lb (87.1kg) LMP 01/11/2004 BMI 30.06 kg/(m2). Last 2 Encounter Wt Readings: Date: Wt: 02/28/2022 87.1 kg (192 lb) 11/30/2020 82.1 kg (181 lb) Awake, alert, oriented times 3. Patient is not in acute respiratory distress. SKIN: No petechial rash or ecchymosis noted. Head : Normocephalic. Face is symmetrical NECK: Supple. No JVD. No carotid bruit. No thyromegaly. ENT: Pharyngeal structures are crowded and uvula is visualized. Mallampati 2 LUNGS: Clear to auscultation bilaterally. CARDIAC: Normal S1 and S2, no systolic murmur. ABDOMEN: Soft, nontender, bowel sounds present. EXTREMITY: No cyanosis, clubbing, edema. PULSES: Peripheral pulses palpable. NEURO: Non-focal. Moves all extremities. Musculoskeletal: No significant deformities. Last Labs: CMP: Sodium Date Value Ref Range Status 10/08/2012 140 132 - 148 mmol/L Final Potassium Date Value Ref Range Status 10/08/2012 4.0 3.5 - 5.0 mmol/L Final Chloride Date Value Ref Range Status 10/08/2012 104 98 - 110 mmol/L Final CO2 Date Value Ref Range Status 10/08/2012 23 23 - 32 mmol/L Final Glucose Date Value Ref Range Status 10/08/2012 74 65 - 100 mg/dL Final BUN Date Value Ref Range Status 10/08/2012 13 8 - 25 mg/dL Final Creatinine Date Value Ref Range Status 10/08/2012 0.61 (L) 0.70 - 1.40 mg/dL Final Calcium Date Value Ref Range Status 10/08/2012 8.5 8.5 (more content not included)... Normal [facility] ECG COMPLETEon 02-28-2022 Atrial Rate 71 BPM [facility] Calculated P [place] 49 degrees [facility] Calculated R [place] 39 degrees [facility] Calculated T [place] 64 degrees [facility] P-R Interval 134 ms [facility] QRS Duration 74 ms [facility] QT Interval 396 ms [facility] QTC Calculation (Bazett) 430 ms [facility] Ventricular Rate [address] [facility] EMERGENCY REPORTon EMERGENCY REPORT [facility] EM ERGENCY ROOM REPORT NAME ACCOUNT SEX AGE ADMIT DISCHARGE PT MED. RECORD# NUMBER DATE DATE TYPE COURTNEY [id number] F 47 11/28/17 2 DIANE Stephens [id number] ROOM: 305MO DATE OF : 1970 DICTATING [...] case with Dr. Barth, the hospitalist on [facility], and he has accepted the patient [...] Akhtar DO TD: 11/29/17 06:41 JOB #: [id number] Transcribed by: marietta Electronically signed by: E-Sign: Dr. Krissy Akhtar D.O. 12/02/17 19:49 Page 1 of 1 DIANE ANGELO Emergency Room Report Normal [facility] HISTORY AND PHYSICALon 12-01 HISTORY AND PHYSICAL [facility] H ISTORY & PHYSICAL/DISCHARGE SUMMARY NAME ACCOUNT SEX AGE ADMIT DISCHARGE PT MED. RECORD# NUMBER DATE DATE TYPE COURTNEY [id number] F 47 11/28/17 11/29/17 2 DIANE Stephens [id number] ROOM: 305MO DATE OF : 66 DICTATING PHYSICIAN: Rachel Barth CHIEF COMPLAINT: Chest pain. HISTORY OF PRESENT ILLNESS: This is a 47-year-old female with past medical history significant for supraventricular tachycardia in the distant past. She had an ablation. She followed up with [facility] with Dr. Randolph. She also has a [...] Supraventricular tachycardia. She had an ablation at [facility] in 2002. She followed up with Dr. [...] recent weight Page 1 of 4 DIANE ANGELO History Physical/Discharge Summary changes, fever, chills. No [...] Serial troponins Page 2 of 4 DIANE ANGELO History Physical/Discharge Summary and EKGs were negative. [...] years ago on an echocardiogram at the [facility]. This was not [...] Barth MD TD: 11/29/17 13:07 JOB #: [id number] Transcribed by: am Electronically signed by: Eric Barth M.D. 12/01/17 10:10 Update to H&P: [ ] No changes: I have examined the patient and reviewed the H&P and there are no changes. [ ] As previously dictated with the following changes: PHYSICIAN SIGNATURE: TIME: DATE: Page 3 of 4 DIANE ANGELO History Physical/Discharge Summary Normal [facility] BMP with eGFR DAILYon 2017 Age 47 years Normal [facility] Comment on above: Performed By: #### 2 73590 ####[facility],[address] [place] [address] Anion gap 10 mmol/L Normal 10 - 20 [facility] Comment on above: Performed By: #### 2 38656 ####[facility],[address] [place] [address] Calcium 8.5 mg/dL Low 8.6 - 10.2 [facility] Comment on above: Performed By: #### 2 62835 ####[facility],[address] [place] [address] Chloride 105 mmol/L Normal 98 - 107 [facility] Comment on above: Performed By: #### 2 78371 ####[facility],[address] [place] [address] CO2 22.9 mmol/L Normal 21.0 - 31.0 [facility] Comment on above: Performed By: #### 2 17004 ####[facility],[address] [place] [address]275 Creatinine 0.7 mg/dL Normal 0.6 - 1.2 [facility] Comment on above: Performed By: #### 2 11172 ####[facility],[address] [place] [address] 02162 eGFR (non-black) Normal [facility] Comment on above: Result Comment: BASI C METABOLIC PANEL Performed By: #### 2 99617 ####[facility],[address] [place] [address]8422 eGFR (non-black) mL/min/{1.73_m2} Normal 60 - 999 [facility] Comment on above: Performed By: #### 2 42464 ####[facility],[address] [place] [address] Result Comment: {LL] {II]{HH]ACCORDING TO THE NATIONAL KIDNEY DISEASE EDUCATION PROGRAM(NKDE), A NORMAL eGFRIS A VALUE GREATER THAN OR EQUAL TO 60 ML/MIN/1.73 SQ METERS.CHRONIC KIDNEY DISEASE: <60mL/MIN/1.73 SQ METERSKIDNEY FAILURE: <15mL/MIN/1.73 SQ METERSTHIS TEST SHOULD ONLY BE USED FOR PATIENTS 18 YEARS OF AGE AND OLDER. Glucose mass conc 88 mg/dL Normal 74 - 106 [facility] Comment on above: Performed By: #### 2 [address] ####[place] [address] Potassium molar conc 3.7 mmol/L Normal 3.5 - 5.1 [facility] Comment on above: Performed By: #### 2 25177 ####[place] [address] Sodium 134 mmol/L Low 136 - 145 [facility] Comment on above: Performed By: #### 2 23054 ####[place] [address] Urea nitrogen 11 mg/dL Normal 6 - 20 [facility] Comment on above: Performed By: #### 2 15070 ####[place] [id number] CBC DAILYon 11-29-2017 Basophils Auto #/vol (Bld) 0.00 x10EE3/UL Normal 0.00 - 0.10 [facility] Comment on above: Performed By: #### 2 18784 ####[place] [address] Basophils/100 WBC Auto (Bld) 0.7 % Normal 0.0 - 2.0 [facility] Comment on above: Performed By: #### 2 90409 ####[place] [address] Blood morphology N/A Normal [facility] Comment on above: Result Comment: {CD] Performed By: #### 2 38409 ####[facility],[address] [place] [address] Eosinophils 0.10 x10EE3/UL Normal 0.00 - 0.50 [facility] Comment on above: Performed By: #### 2 99213 ####[facility],[address] [place] [address] Eosinophils/100 leukocytes 1.5 % Normal 0.0 - 7.0 [facility] Comment on above: Performed By: #### 2 34540 ####[facility],[address] [place] [address] Erythrocyte distribution width Auto Ratio (RBC) 14.5 % Normal 12.0 - 15.6 [facility] Comment on above: Performed By: #### 2 48036 ####[facility],[address] [place] [address] Erythrocytes (RBC) 4.36 x 10EE6/UL Normal 4.10 - 5.30 [facility] Comment on above: Performed By: #### 2 61122 ####[facility],[address] [place] [address] Hematocrit (HCT) 38.7 % Normal 34.0 - 46.0 [facility] Comment on above: Performed By: #### 2 51473 ####[facility],[address] [place] [address] Hemoglobin mass conc (Bld) 13.3 g/dL Normal 12.0 - 16.0 [facility] Comment on above: Performed By: #### 2 77241 ####[facility],[address] [place] [address] Lymphocytes 2.30 x10EE3/UL Normal 0.80 - 2.80 [facility] Comment on above: Performed By: #### 2 87702 ####[facility],[address] [place], [place] [address] Lymphocytes/100 leukocytes 38.6 % Normal 20.0 - 45.0 [facility] Comment on above: Performed By: #### 2 02647 ####[facility],[address] [place] [address] MANUAL DIFF N/A Normal [facility] Comment on above: Performed By: #### 2 63731 ####[facility],[address] [place] [address] MCH 30 pg Normal 27 - 33 [facility] Comment on above: Performed By: #### 2 37951 ####[facility],[address] [place] [address] MCHC mass conc (RBC) 34 X10 3 Normal 32 - 36 [facility] Comment on above: Performed By: #### 2 47253 ####[facility],[address] [place] [address] MCV 89 fL Normal 80 - 99 [facility] Comment on above: Performed By: #### 2 89164 ####[facility],[address] [place], [place] [address] Monocytes 0.60 x10EE3/UL Normal 0.20 - 1.00 [facility] Comment on above: Performed By: #### 2 14414 ####[facility],[address] [place] [address] MONOS % 10.4 % High 0.0 - 10.0 [facility] Comment on above: Performed By: #### 2 08545 ####[facility],[address] [place], [place] [address] Neutrophils 2.90 x10EE3/UL Normal 1.50 - 7.10 [facility] Comment on above: Performed By: #### 2 61778 ####[facility],[address] [place], [place] [address] Neutrophils/100 WBC Auto (Bld) 48.8 % Normal 46.0 - 76.0 [facility] Comment on above: Performed By: #### 2 53341 ####[facility],[address] [place] [address] Platelet mean volume (PMV) 9.8 fL Normal 6.6 - 10.5 [facility] Comment on above: Result Comment: AUTO MATED DIFFERENTIAL Performed By: #### 2 36309 ####[facility],[address] [place] [address] Platelets 273 x10EE3/UL Normal 150 - 450 [facility] Comment on above: Performed By: #### 2 31846 ####[facility],[address] [place] [address] 74927 WBC (Leukocytes) 6.0 x 10EE3/UL Normal 4.5 - 10.8 [facility] Comment on above: Performed By: #### 2 46059 ####[facility],[address] [place], [place] [address] Yemi 11-29-2017 [facility] Telephone (AGCARDWST) -------DIANE ANGELO ([id number]) 1970 [facility] Department[facility]/29/17 JERSON RANDOLPH During your visit today, we recorded the following information about you:Renate Tavera LPN 11/29/2017 11:16 AM SignedPlease review outside testing [facility].Fabi Flores MD 11/29/2017 4:36 PM SignedThis does not include the nuclear images. Please update tomorrow.Yeni Perez LPN 12/04/2017 2:21 PM SignedRequested again.Bisi Flores LPN 12/04/2017 4:41 PM SignedPlease review further results sent on patient.Renate Fabi Tavera MD 12/04/2017 4:57 PM SignedStudies reviewed and sent for scanning. There is no indication that we orderedthis or that she has an appointment to see us. We have not seen her for 3 years.Jerson Randolph [facility] As of Date: 11/29/2017 Noted Allergy ReactionNkda [Other] 12/19/2002Date Reviewed: 09/16/2014Reviewed by: Vanda Ram Ma - Fully AssessedReason for Visit: Stress Test [1922]Prescriptions as of 11/29/2017 Sig: SERTRALINE 100 MG TABLET once daily. ALEVE ORAL Take by mouth.Problem List As Of Date 11/29/2017 Noted Resolved Nausea [R11.0] INVALID FOR* GERD (gastroesophageal reflux disease) [K21.9] INVALID FOR* RUQ pain [R10.11] INVALID FOR* Diarrhea [R19.7] INVALID FOR* Biliary dyskinesia [K82.8] INVALID FOR* Atypical chest pain [R07.89] INVALID FOR* S/P RF ablation operation for arrhythmia [Z98.8*INVALID FOR* PVC's (premature ventricular contractions) [I49*INVALID FOR* Status:Closed by JERSON RANDOLPH MD on 12/04/17 [facility] ECHO [facility] 8 CV ECHO [place] [address] [address] [place] [address] Patient: DIANE ANGELO Phone#: : 1970 Age: 47 Gender: F Pt. Type: Out Account: [id number] Location: [facility] Ordering: RACHEL BARTH Exam Date: 11/29/2017/7:06 Family Phys: ALNOZO NELSON Charge Code: [id number] Physician: Creek Order #: [id number] DLP Dose#: PROCEDURE: ECHOCARDIOGRAM WITH DOPPLER AND COLOR FLOW HISTORY: 47-year-old female with chest pain INDICATIONS: Chest pain TECHNIQUE: A 2-D ultrasound, color spectral Doppler and M-mode evaluation of the heart and great vessels. PATIENT MEASUREMENTS: Height (in.): 67 BSA: 1.9 Weight (lbs.): 180 BP: 144/86 Hspt Tutor: ADRIANA M MODE 2D MEASUREMENTS AND CALCULATIONS: LVIDd: 4.47 cm LVIDs: 2.81 cm IVSd: 0.76 cm LVPWd: 0.95 cm FS: 37.19 % Ao Root diam: 2.71 cm LA diam: 2.93 cm LA Volume Index: 16.3 mL/m2 LA A4 Area: 12.44 cm2 RA A4 Area: 8.9 cm RVDd: 2.40 cm TAPSE: 24 mm DOPPLER MEASUREMENTS AND CALCULATIONS MITRAL MV E MAX flori: 68.58 cm/s MV A MAX flori: 41.08 cm/s MV E-A ratio: 1.67 Lat Peak E' Flori 12 cm/s Septal Peak E' FLORI 9 cm/s Continued Report - Page 2 of 3 Patient: DIANE ANGELO Phone#: : 1970 Age: 47 Gender: F Pt. Type: Out Account: [id number] Location: [facility] Ordering: RACHEL BARTH Exam Date: 11/29/2017/7:06 Family Phys: ALONZO NELSON Charge Code: [id number] Physician: Creek Order #: [id number] DLP Dose#: Lateral E./E.' 5.6 Medial E./E.' 7.7 AORTIC Ao V2 max: 125.54 cm/s Ao max P.30 mm[Hg] LV V1 Max 84.56 cm/s LV V1 Max PG 2.86 mm[Hg] PULMONIC PA V2 Max 103.83 cm/s PA Max PG 4.31 mm[Hg] TRICUSPID TR Max Flori 163.30 cm/s TR max PG 10.84 mm[Hg] [...] - Page 3 of 3 Patient: DIANE ANGELO Phone#: : 1970 Age: 47 Gender: F Pt. Type: Out Account: [id number] Location: [facility] Ordering: RACHEL BARTH Exam Date: 11/29/2017/7:06 Family Phys: ALONZO NELSON Charge Code: [id number] Physician: Creek Order #: [id number] DLP Dose#: 1. Normal left ventricle size [...] on 11/29/2017 at 9:55 Approved by: DANIELE ZIMMERMAN on 11/29/2017 at 9:55 Normal [facility] EMERGENCY REPORTon 8 EMERGENCY REPORT [facility] EM ERGENCY ROOM REPORT NAME ACCOUNT SEX AGE ADMIT DISCHARGE PT MED. RECORD# NUMBER DATE DATE TYPE Faith [id number] F 47 11/28/17 3 DIANE Stephens [id number] ROOM: ER DATE OF : 1970 DICTATING [...] This occurred while she was at the [employer] sitting down and talking. She had a similar episode of this a long time ago and she did have a stress test 4 years ago, which was okay, but she has not had a stress test since. The stress test was done at the [facility] in [place]. PAST MEDICAL HISTORY: Tachycardia. She did have an ablation back in 2002. MEDICATIONS: She was on beta blockers for a while, but her area safety manager, who is Dr. Esteves in [place], took her off the beta darren 6 [...] is negative. Page 1 of 2 DIANE ANGELO Emergency Room Report PHYSICAL EXAMINATION: The patient [...] motor or sensory deficits are noted. Hand pulmonologist/intensivist are strong and symmetric. Skin is warm [...] No acute ST segment changes are noted. [place] is approximately 60 degrees. EMERGENCY DEPARTMENT COURSE AND TREATMENT/PLAN/DISPOSITION: Presently, I do have a cardiac workup pending. We will give the patient some sublingual nitroglycerin to see if it helps her chest pain and then we will reevaluate. D: Krissy Akhtar DO TD: 11/28/17 20:41 JOB #: [id number] Transcribed by: am Electronically signed by: E-Sign: Dr. Krissy Akhtar D.O. 11/29/17 04:53 Page 2 of 2 DIANE ANGELO Emergency Room Report Normal [facility] LIPID PROFILEon 11-29-2017 Cholesterol 187 mg/dL Normal 0 - 200 [facility] Comment on above: Performed By: #### 2 77189 ####[facility],[address] [place] [address] Cholesterol to HDL Ratio 3.7 {ratio} Normal 0.0 - 5.0 [facility] Comment on above: Performed By: #### 2 14636 ####[facility],[address] [place] [address] HDL Cholesterol 50 mg/dL Normal 40 - 60 [facility] Comment on above: Performed By: #### 2 71963 ####[facility],[address] [place] [address] 21273 LDL Cholesterol 123 mg/dl Normal 0 - 129 [facility] Comment on above: Performed By: #### 2 13321 ####[facility],[address] [place] [address] LIPID PROFILE Normal [facility] Comment on above: Result Comment: LIPI D PROFILE Performed By: #### 2 92552 ####[facility],[address] [place] [address]28[address] Triglyceride 72 mg/dL Normal 0 - 150 [facility] Comment on above: Performed By: #### 2 11272 ####[facility],[address] [place] [address] NM CARDIAC STRESS (SPECT) W/ TREADMILLon 11-29-2017 NM CARDIAC STRESS (SPECT) W/TREADMILL [place] [address] Patient: DIANE ANGELO Phone#: : 1970 Age: 47 Gender: F Pt. Type: Out Account: [id number] Location: [facility] Ordering: RACHEL BARTH Exam Date: 11/29/2017/8:28 Family Phys: ALONZO NELSON Charge Code: [id number] Physician: Creek Order #: [id number] DLP Dose#: PROCEDURE: CARDIAC STRESS SPECT WITH [...] SPECT/wall motion: Normal wall motion and normal end-systolic brightening and thickening of all myocardial segments, calculated LVEF 69%. Left ventricle end diastolic volume 70 mL. CONCLUSION: 1. No evidence of inducible ischemia or prior myocardial infarction. 2. Normal wall motion and systolic function, calculated LVEF 69%. 3. No prior study available for comparison. Dictated by: DANIELE ZIMMERMAN on 11/29/2017 at 10:00 Approved by: DANIELE ZIMMERMAN on 11/29/2017 at 10:00 Normal [facility] NM EXERCISE STRESS TEST (W/C ARDIAC STUDYon 11-29-2017 NM EXERCISE STRESS TEST (W/CARDIAC STUDY [place] [address] Patient: DIANE ANGELO Phone#: : 1970 Age: 47 Gender: F Pt. Type: Out Account: [id number] Location: 010 Ordering: RACHEL BARTH Exam Date: 11/29/2017/7:42 Family Phys: ALONZO NELSON Charge Code: [id number] Physician: JESUS RANDOLPH Creek Order #: [id number] DLP Dose#: PROCEDURE: ELECTROCARDIOGRAM STRESS TEST HISTORY: [...] - Page 2 of 2 Patient: DIANE ANGELO Phone#: : 1970 Age: 47 Gender: F Pt. Type: Out Account: [id number] Location: [facility] Ordering: RACHEL BARTH Exam Date: 11/29/2017/7:42 Family Phys: ALONZO NELSON Charge Code: [id number] Physician: JESUS Cee Order #: [id number] DLP Dose#: Approved by: DANIELE ZIMMERMAN on 11/29/2017 at 9:59 Normal [facility] TROPONINon 11-29-2017 Troponin I.cardiac mass conc ng/mL Normal 0.00 - 0.05 [facility] Comment on above: Result Comment: Elev ated troponin (above the 99th percentile) usually indicates myocardialischemia. Results must be interpreted within the clinical setting.1.Non-ischemic pathology can also cause elevated troponin levels (e.g., acute pulmonary embolism, myocarditis, pericarditis, heart failure, intracranial injury, rhabdomyolisis, sepsis, shock and renal insufficiency).2.Approximately 1% of healthy adults have elevated troponin levels.3.Analytical false positive results rarely occur(due to multiple interferences such as heterophile antibodies). Performed By: #### 2 33220 ####[facility],[address] [place] [address] Troponin I.cardiac mass conc ng/mL Normal 0.00 - 0.05 [facility] Comment on above: Result Comment: Elev ated troponin (above the 99th percentile) usually indicates myocardialischemia. Results must be interpreted within the clinical setting.1.Non-ischemic pathology can also cause elevated troponin levels (e.g., acute pulmonary embolism, myocarditis, pericarditis, heart failure, intracranial injury, rhabdomyolisis, sepsis, shock and renal insufficiency).2.Approximately 1% of healthy adults have elevated troponin levels.3.Analytical false positive results rarely occur(due to multiple interferences such as heterophile antibodies). Performed By: #### 2 15490 ####[place] [address] Troponin I.cardiac mass conc ng/mL Normal 0.00 - 0.05 [facility] Comment on above: Result Comment: Elev ated troponin (above the 99th percentile) usually indicates myocardialischemia. Results must be interpreted within the clinical setting.1.Non-ischemic pathology can also cause elevated troponin levels (e.g., acute pulmonary embolism, myocarditis, pericarditis, heart failure, intracranial injury, rhabdomyolisis, sepsis, shock and renal insufficiency).2.Approximately 1% of healthy adults have elevated troponin levels.3.Analytical false positive results rarely occur(due to multiple interferences such as heterophile antibodies). Performed By: #### 2 28227 ####[address] [address] BNP (B-TYPE NATRIURETIC PEPT THOMAS)on 11-28-2017 BNP 27 pg/mL Normal 1 - 100 [facility] Comment on above: Performed By: #### 2 47341 ####[address] [address] CBCon 11-28-2017 Basophils Auto #/vol (Bld) 0.10 x10EE3/UL Normal 0.00 - 0.10 [facility] Comment on above: Performed By: #### 2 26138 ####[place] [address] Basophils/100 WBC Auto (Bld) 0.9 % Normal 0.0 - 2.0 [facility] Comment on above: Performed By: #### 2 34458 ####[facility],[address] [place] [address] Blood morphology N/A Normal [facility] Comment on above: Result Comment: {CD] Performed By: #### 2 54134 ####[facility],[address] [place] [address] CBC Normal [facility] Comment on above: Result Comment: CBC- COMPLETE BLOOD COUNT Performed By: #### 2 55111 ####[facility],[address] [place] [address] Eosinophils 0.10 x10EE3/UL Normal 0.00 - 0.50 [facility] Comment on above: Performed By: #### 2 45955 ####[facility],[address] [place] [address] Eosinophils/100 leukocytes 0.9 % Normal 0.0 - 7.0 [facility] Comment on above: Performed By: #### 2 16722 ####[facility],[address] [place] [address] Erythrocyte distribution width Auto Ratio (RBC) 14.5 % Normal 12.0 - 15.6 [facility] Comment on above: Performed By: #### 2 69415 ####[facility],[address] [place], [place] [address] Erythrocytes (RBC) 4.80 x 10EE6/UL Normal 4.10 - 5.30 [facility] Comment on above: Performed By: #### 2 21091 ####[facility],[address] [place] [address] Hematocrit (HCT) 42.5 % Normal 34.0 - 46.0 [facility] Comment on above: Performed By: #### 2 88920 ####[facility],[address] [place] [address] Hemoglobin mass conc (Bld) 14.3 g/dL Normal 12.0 - 16.0 [facility] Comment on above: Performed By: #### 2 97489 ####[facility],[address] [place] [address] Lymphocytes 2.20 x10EE3/UL Normal 0.80 - 2.80 [facility] Comment on above: Performed By: #### 2 32012 ####[facility],[address] [place] [address] Lymphocytes/100 leukocytes 32.7 % Normal 20.0 - 45.0 [facility] Comment on above: Performed By: #### 2 21227 ####[facility],[address] [place] [address] MANUAL DIFF N/A Normal [facility] Comment on above: Performed By: #### 2 19839 ####[facility],[address] [place] [address] MCH 30 pg Normal 27 - 33 [facility] Comment on above: Performed By: #### 2 02720 ####[facility],[address] [place], [place] [address] MCHC mass conc (RBC) 34 X10 3 Normal 32 - 36 [facility] Comment on above: Performed By: #### 2 47833 ####[facility],[address] [place], [place] [address] MCV 89 fL Normal 80 - 99 [facility] Comment on above: Performed By: #### 2 17307 ####[facility],[address] [place], [place] [address] Monocytes 0.70 x10EE3/UL Normal 0.20 - 1.00 [facility] Comment on above: Performed By: #### 2 37474 ####[facility],[address] [place], [place] [address] MONOS % 10.2 % High 0.0 - 10.0 [facility] Comment on above: Performed By: #### 2 38053 ####[facility],[address] [place] [address] Neutrophils 3.80 x10EE3/UL Normal 1.50 - 7.10 [facility] Comment on above: Performed By: #### 2 62201 ####[facility],[address] [place] [address]289 Neutrophils/100 WBC Auto (Bld) 55.3 % Normal 46.0 - 76.0 [facility] Comment on above: Performed By: #### 2 63765 ####[facility],[address] [place] [address] 57782 Platelet mean volume (PMV) 9.8 fL Normal 6.6 - 10.5 [facility] Comment on above: Result Comment: AUTO MATED DIFFERENTIAL Performed By: #### 2 38638 ####[facility],[address] [place] [address] 21070 Platelets 266 x10EE3/UL Normal 150 - 450 [facility] Comment on above: Performed By: #### 2 48485 ####[facility],[address] [place] [address] 74485 WBC (Leukocytes) 6.8 x 10EE3/UL Normal 4.5 - 10.8 [facility] Comment on above: Performed By: #### 2 80671 ####[facility],[address] [place] [address] CHEST 1 VIEWon 11-28-2017 CHEST 1 VIEW [place] [address] Patient: DIANE ANGELO Phone#: : 1970 Age: 47 Gender: F Pt. Type: ER Account: [id number] Location: [facility] Ordering: KRISSY AKHTAR Exam Date: 11/28/2017/20:40 Family Phys: ALONZO NELSON Charge Code: [id number] Physician: Creek Order #: [id number] DLP Dose#: PROCEDURE: X-RAY CHEST 1 VIEW [...] Judy Willingham MD on 11/29/2017 at 8:14 Normal [facility] CMP with eGFRon 11-28-2017 Age 47 years Normal [facility] Comment on above: Performed By: #### 2 65523 ####[facility],[address] [place] [address] Albumin 4.6 g/dL Normal 3.4 - 4.8 [facility] Comment on above: Performed By: #### 2 94659 ####[facility],[address] [place] [address] Albumin/Globulin Ratio 1.4 {ratio} Normal 0.9 - 1.6 [facility] Comment on above: Performed By: #### 2 40205 ####[facility],[address] [place] [address] 55483 ALK PHOS 69 U/L Normal 38 - 126 [facility] Comment on above: Performed By: #### 2 74214 ####[facility],[address] [place] [address] 39495 ALT/SGPT 7 U/L Low 8 - 35 [facility] Comment on above: Performed By: #### 2 60288 ####[facility],[address] [place] [address] 89795 Anion gap 10 mmol/L Normal 10 - 20 [facility] Comment on above: Performed By: #### 2 50905 ####[facility],[address] [place] [address] AST/SGOT 13 U/L Normal 13 - 39 [facility] Comment on above: Performed By: #### 2 67946 ####[facility],[address] [place] [address] B/C RATIO 15 ratio Normal 0 - 30 [facility] Comment on above: Performed By: #### 2 09785 ####[facility],[address] [place] [address] Bilirubin (total) 0.4 mg/dL Normal 0.0 - 1.5 [facility] Comment on above: Performed By: #### 2 09933 ####[facility],[address] [place] [address] Calcium 9.0 mg/dL Normal 8.6 - 10.2 [facility] Comment on above: Performed By: #### 2 22934 ####[facility],[address] [place] [address] Chloride 102 mmol/L Normal 98 - 107 [facility] Comment on above: Performed By: #### 2 50821 ####[facility],[address] [place] [address] CO2 24.5 mmol/L Normal 21.0 - 31.0 [facility] Comment on above: Performed By: #### 2 16135 ####[facility],[address] [place] [address] Creatinine 0.8 mg/dL Normal 0.6 - 1.2 [facility] Comment on above: Performed By: #### 2 55089 ####[place] [address] eGFR (non-black) mL/min/{1.73_m2} Normal 60 - 999 [facility] Comment on above: Performed By: #### 2 91114 ####[facility],[address],[place] [address] Result Comment: ACCO RDING TO THE NATIONAL KIDNEY DISEASE EDUCATION PROGRAM(NKDE), A NORMAL eGFRIS A VALUE GREATER THAN OR EQUAL TO 60 ML/MIN/1.73 SQ METERS.CHRONIC KIDNEY DISEASE: <60mL/MIN/1.73 SQ METERSKIDNEY FAILURE: <15mL/MIN/1.73 SQ METERSTHIS TEST SHOULD ONLY BE USED FOR PATIENTS 18 YEARS OF AGE AND OLDER. eGFR (non-black) Normal [facility] Comment on above: Result Comment: COMP REHENSIVE METABOLIC PANEL Performed By: #### 2 52500 ####[facility],[address] [place] [address]806 Globulin 3.2 g/dL Normal 1.5 - 3.8 [facility] Comment on above: Performed By: #### 2 75438 ####[facility],[address] [place] [address] 64431 Glucose mass conc 84 mg/dL Normal 74 - 106 [facility] Comment on above: Performed By: #### 2 32590 ####[facility],[address] [place] [address] 65119 Potassium molar conc 3.8 mmol/L Normal 3.5 - 5.1 [facility] Comment on above: Performed By: #### 2 82389 ####[facility],[address] [place] [address] 91656 Protein 7.8 g/dL Normal 6.4 - 8.3 [facility] Comment on above: Performed By: #### 2 00797 ####[facility],[address] [place] [address] 31901 Sodium 133 mmol/L Low 136 - 145 [facility] Comment on above: Performed By: #### 2 53268 ####[facility],[address] [place] [address] 06675 Urea nitrogen 12 mg/dL Normal 6 - 20 [facility] Comment on above: Performed By: #### 2 94107 ####[facility],[address] [place] [address] D-DIMER, QUANTITATIVEon 04-0 D-DIMER QUANT 181 ng/ml Normal 0 - 230 [facility] Comment on above: Performed By: #### 2 99397 ####[facility],[address] [place] [address] D-DIMER, QUANTITATIVE Normal [facility] Comment on above: Result Comment: LEO T D-DIMER Performed By: #### 2 07073 ####[facility],[address] [place] [address] MAGNESIUMon 11-28-2017 Magnesium 2.3 mg/dL Normal 1.6 - 2.6 [facility] Comment on above: Performed By: #### 2 82832 ####[facility],[address] [place] [address] TROPONINon 11-28-2017 Troponin I.cardiac mass conc ng/mL Normal 0.00 - 0.05 [facility] Comment on above: Result Comment: Elev ated troponin (above the 99th percentile) usually indicates myocardialischemia. Results must be interpreted within the clinical setting.1.Non-ischemic pathology can also cause elevated troponin levels (e.g., acute pulmonary embolism, myocarditis, pericarditis, heart failure, intracranial injury, rhabdomyolisis, sepsis, shock and renal insufficiency).2.Approximately 1% of healthy adults have elevated troponin levels.3.Analytical false positive results rarely occur(due to multiple interferences such as heterophile antibodies). Performed By: #### 2 01694 ####[facility],[address] [place], [place] [address] EMERGENCY REPORTon 7 EMERGENCY REPORT [facility] EM ERGENCY ROOM REPORT NAME NUMBER SEX AGE ADMIT DISC TYPE MED.RECORD# DIANE ANGELO [id number] F 46 05/30/2017 05/30/2017 Usha [id number] ROOM:ER DATE OF :1970 PHYSICIAN NO.: PHYSICIAN NAME: PHYSICIAN:TRAY BENTLEY HISTORY OF PRESENT ILLNESS: Patient twisted her ankle when she stepped on multiple walnuts and she twisted her ankle. She has swelling and ecchymosis to the right ankle. She is not able to bear full weight. She says the pain is 10/10. It is worse with pressure, achy pain otherwise. PAST MEDICAL HISTORY: Unremarkable. PAST SURGICAL HISTORY: She had appendectomy, cholecystectomy, hysterectomy. SOCIAL HISTORY: She does not smoke or drink. REVIEW OF SYSTEMS: Eight systems reviewed and negative except as mentioned above. PHYSICAL EXAMINATION: Patient is afebrile, blood pressure 169/98, pulse 101, respirations 18. Head is normocephalic, atraumatic. Eyes: Pupils equal, round, and reactive to light. Extraocular muscles intact. Nares are patent. Throat has adequate oral moisture. Uvula is midline. Neck is supple without petechial rash. Heart without murmur. S1 equal to S2. No S3 or S4 appreciated. Lungs are clear to auscultation bilaterally. No rales, rhonchi, or retractions. Abdomen: Soft, nontender, nondistended. Skin is warm and dry. She does have generalized swelling to the right ankle. She had no base of the 5th tenderness or fibular head tenderness. DIAGNOSTIC DATA: She had x-rays obtained which were unremarkable for fracture. DIAGNOSIS: Acute right ankle sprain. PLAN/DISPOSITION: She will be placed in an [employer]. She has crutches at home. We will write her off work for tomorrow. OARRS was reviewed and was negative. D: TRAY BENTLEY TD: 05/30/2017 19:38:47 JOB #: [id number] Tray Bentley D.O. Emergency Department 06/01/17 07:21 Transcribed by: NMT 05/30/2017 19:38:47 Copy for: SHEREE Hernandez III Copy for: OMAR ANTHONY MD EMERGENCY ROOM REPORT DIANE ANGELO 1 Normal [facility] ANKLE COMPLETE RTon 05-30-[address] [place], [place] [id number] Patient: DIANE ANGELO. Phone#: : [phone] Age: 46 Gender: F Pt. Type: ER Account: [id number] Location: [id number] Ordering: TRAY SHEREE Exam Date: 05/30/2017/17:26 Family Phys: ALONZO NELSON Charge Code: [id number] Physician: Creek Order #: [id number] DLP Dose#: PROCEDURE: X-RAY ANKLE COMPLETE RT MIN 3 VIEWS COMPARISON: None. INDICATIONS: Trauma FINDINGS: BONES: Normal. No significant arthropathy or acute abnormality. SOFT TISSUES: Moderate lateral soft tissue swelling is present. EFFUSION: None visible. OTHER: Negative. CONCLUSION: 1. Moderate lateral soft tissue swelling is present. A bones are intact. Dictated by: Judy Willingham MD on 05/30/2017 at 17:34 Approved by: Judy Willingham MD on 05/30/2017 at 17:34 Normal [facility] Vital Signs Date Time Vital Sign Value Performing Clinician Faci lity 02-28-2022 14:13-0400 Body height 170.2 cm María Estes MD Work Phone: [facility] 02-28-2022 14:13-0400 Body weight 87.09 kg María Estes MD Work Phone: [facility] 02-28-2022 14:13-0400 Diastolic blood pressure 82 mm[Hg] María Estes MD Work Phone: [facility] 02-28-2022 14:13-0400 Heart rate 71 /min María Estes MD Work Phone: [facility] 02-28-2022 14:13-0400 Systolic blood pressure 126 mm[Hg] María Estes MD Work Phone: [facility] Encounters Encounter Date Encounter Type Care Provider Facility Start: 10-15-2024 End: 10-15-2024 ambulatory [facility] Start: 09-01-2024 End: 09-01-2024 ambulatory Alonzo Nelson Facility:[facility] Start: 04-14-2024 End: 04-14-2024 ambulatory Alonzo Nelson Facility:[facility] Start: 03-07-2024 End: 03-07-2024 teresa Nelson Facility:[facility] Start: 06-20-2023 End: 06-20-2023 ambulatory [facility] Work Phone: Start: 06-20-2023 End: 06-20-2023 [facility] Start: 05-26-2022 End: 05-26-2022 ambulatory [facility] Work Phone: Start: 05-26-2022 End: 05-26-2022 Patient encounter procedure [facility] Start: 03-17-2022 End: 03-17-2022 Subsequent hospital visit by physician [facility] Radiology Comment on above: Encounter for screen ing for cardiovascular disorders [Z13.6] Start: 03-13-2022 End: 03-13-2022 Patient encounter procedure Rosemary James APRN.CNP Work Phone: Integrative Medicine Comment on above: Obesity (BMI 30-39.9 ) (Primary Dx); PVC's (premature ventricular contractions); Current mild episode of major depressive disorder, unspecified whether recurrent (HCC); Hyperlipidemia, unspecified hyperlipidemia type; BMI 30.0-30.9,adult; Nutritional counseling; Multiple joint pain Start: 02-28-2022 End: 02-28-2022 Patient encounter procedure María Estes MD Work Phone: Cardiology Comment on above: PVC's (premature logan tricular contractions) (Primary Dx); Encounter for screening for cardiovascular disorders; S/P RF ablation operation for arrhythmia; Obesity (BMI 30-39.9) Start: 11-26-2020 End: 11-26-2020 Patient encounter procedure Alfonso Browne Work Phone: [facility] Start: 11-26-2020 Results Only Alfonso yi Work Phone: General Surgery Start: 11-28-2017 End: 11-29-2017 Ambulatory ALONZO NELSON [facility] Start: 11-28-2017 Emergency department patient visit KRISSY MONTES DE OCA [facility] Start: 10-25-2017 End: 01-11-2018 Ambulatory ALONZO NELSON [facility] Start: 07-04-2017 End: 09-27-2017 Ambulatory YAZAN DPM PRISCA [facility] Start: 05-30-2017 End: 05-30-2017 Emergency department patient visit TRAY Hernandez SHEREE [facility] Procedures Date Procedure Procedure Detail Performing Clinician Start: 06-20-2023 Nucleic acid assay Start: 03-17-2022 Unlisted computed tomography procedure María Estes MD Work Phone: Start: 12-28-2020 Colonoscopy María Estes MD Work Phone: Start: 11-26-2020 PT ED PATIENT INFORMATION Alfonso Browne Work Phone: Start: 04-08-2013 Colonoscopy Alfnoso ness Plan of Treatment Date Care Activity Detail Author Start: 12-28-2030 Colonoscopy COLONOSCOPY [facility] Start: 12-28-2030 COLORECTAL CANCER SCREENING COLORECTAL CANCER SCREENING [facility] Start: 03-03-2027 LIPID SCREEN LIPID SCREEN [facility] Start: 03-03-2025 DIABETES SCREEN DIABETES SCREEN [facility] Start: 04-27-2022 Influenza vaccination INFLUENZA (#1) [facility] Start: 03-13-2022 End: 05-13-2022 25-hydroxyvitamin D3 [Mass/volume] in Serum or Plasma VITAMIN D 25 HYDROXY Lab Routine PVC's (premature ventricular contractions) Obesity (BMI 30-39.9) Current mild episode of major depressive disorder, unspecified whether recurrent (HCC) Hyperlipidemia, unspecified hyperlipidemia type BMI 30.0-30.9,adult Expected: 03/13/2022, Expires: 05/13/2022 [facility] Work Phone: Comment on above: Expected: 03/13/2022 , Expires: 05/13/2022 Start: 02-28-2022 End: 04-30-2022 CBC panel - Blood by Automated count CBC Lab Routine PVC's (premature ventricular contractions) Expected: 02/28/2022, Expires: 04/30/2022 [facility] Work Phone: Comment on above: Expected: 02/28/2022 , Expires: 04/30/2022 Start: 02-28-2022 End: 04-30-2022 Comprehensive metabolic 2000 panel - Serum or Plasma COMP METABOLIC PANEL Lab Routine PVC's (premature ventricular contractions) Expected: 02/28/2022, Expires: 04/30/2022 [facility] Work Phone: Comment on above: Expected: 02/28/2022 , Expires: 04/30/2022 Start: 02-28-2022 End: 04-30-2022 Creatine kinase [Enzymatic activity/volume] in Serum or Plasma CK CREATINE KINASE Lab Routine PVC's (premature ventricular contractions) Expected: 02/28/2022, Expires: 04/30/2022 [facility] Work Phone: Comment on above: Expected: 02/28/2022 , Expires: 04/30/2022 Start: 02-28-2022 End: 04-30-2022 Lipid 1996 panel - Serum or Plasma LIPID PANEL BASIC Lab Routine PVC's (premature ventricular contractions) Expected: 02/28/2022, Expires: 04/30/2022 [facility] Work Phone: Comment on above: Expected: 02/28/2022 , Expires: 04/30/2022 Start: 02-28-2022 End: 04-30-2022 Magnesium [Mass/volume] in Serum or Plasma MAGNESIUM BLD Lab Routine PVC's (premature ventricular contractions) Expected: 02/28/2022, Expires: 04/30/2022 [facility] Work Phone: Comment on above: Expected: 02/28/2022 , Expires: 04/30/2022 Start: 02-28-2022 End: 04-30-2022 Thyrotropin [Units/volume] in Serum or Plasma TSH BLD Lab Routine PVC's (premature ventricular contractions) Expected: 02/28/2022, Expires: 04/30/2022 [facility] Work Phone: Comment on above: Expected: 02/28/2022 , Expires: 04/30/2022 Start: 05-19-2021 COVID-19 VACCINE (3 - Booster for Moderna series) COVID-19 VACCINE (3 - Booster for Moderna series) [facility] Start: 04-27-2021 Influenza vaccination INFLUENZA (Sea son Ended) [facility] Start: 2018 Screening for malign ant neoplasm of colon [facility] Start: 2018 SHINGRIX VACCINE (1 of 2) SHINGRIX VACCINE (1 of 2) [facility] Start: 10-08-2015 DIABETES SCREEN DIABETES SCREEN [facility] Start: 09-05-2015 LIPID SCREEN LIPID SCREEN [facility] Start: 09-27-2014 PAP TESTING PAP TESTING [facility] Start: 2013 COLOGUARD (FIT-DNA) COLOGUARD (FIT-D NA) [facility] Start: [address] COLONOGRAPHY [facility] Start: 2013 FECAL OCCULT BLOOD FECAL OCCULT BLOO D [facility] Start: 2013 SIGMOIDOSCOPY SIGMOIDOSCOPY [facility] Start: 2008 Mammography MAMMOGRAM [facility] Start: 1998 HPV TESTING HPV TESTING [facility] Start: 1987 Urine microalbumin profile DTAP,TDAP,TD (1 - Tdap) [facility] Start: 1986 HEPATITIS C SCREENING HEPATITIS C SC REENING [facility] Start: 1986 HIV SCREENING HIV SCREENING [facility] Start: 1980 Adult depression screening assessment DEPRESSION SCREENING [facility] End: 03-30-2023 CT CALCIUM SCOR[place]F [place] ([place] Radiology Routine Encounter for screening for cardiovascular disorders 1 Occurrences starting 02/28/2022 until 03/30/2023 [facility] Work Phone: Comment on above: 1 Occurrences starti ng 02/28/2022 until 03/30/2023 End: 02-28-2023 Polysomnogram POLYSOMNOGRAM (PSG) Procedures Routine PVC's (premature ventricular contractions) 1 Occurrences starting 02/28/2022 until 02/28/2023 [facility] Work Phone: Comment on above: 1 Occurrences starti ng 02/28/2022 until 02/28/2023 PT ED PATIENT INFORMATION PT ED PATIENT INFORMATION Other 11/26/2020 [facility] Payers Date Payer Category Payer Self-pay [id number] 2024 Unknown [id number] 2021 Private Health Insurance [facility] CHOICE PLUS [id number] 2021-Present [phone] [address] [place] [address] O [id number] 2012 Unknown [employer] C[employer] PPO [id number] 2012-Present PPO [id number] Blue Cross Blue Shield [id number] Private Health Insurance [facility] [id number] Unknown [id number] Unknown [id number] Unknown [id number] Social History Date Type Detail Facility [facility]: [facility] Start: 09-16-2014 End: 02-28-2022 Alcohol intake Current non-drinker of alcohol (finding) [facility] Start: 1970 Sex Assigned At Not on file [facility] Start: 11-30-2020 History SDOH Alcohol Comment rarely [facility] Start: 02-14-2022 End: 03-17-2022 Exposure to SARS-CoV-2 (event) Not sure [facility] Start: 03-30-2014 [facility] Start: 1970 Sex Assigned At Female [facility] Clinical Notes 02-28-2022 to 03-17-2022 RT Po(R) - 03/17/2022 2:00 PM EDGena James APRN.MORGAN - 03/13/2022 10:00 AM EDTPatient InstructionsPatient InstructionsQarab Vinnie Estes MD - 02/28/2022 2:30 PM EDT Note Date & Type Note Facility 03-17-2022 Note HNO ID: [id number] Author: RT Po(Amy) Service: Radiology Author Type: Technologist Type: Progress Notes Filed: 03/17/2022 2:10 PM Note Text: Radiology Service Progress Note PATIENT NAME: Diane Angelo DATE OF SERVICE: March 17, 2022 TIME: 2:09 PM PATIENT IDENTITY VERIFICATION COMPLETED USING TWO (2) IDENTIFIERS: Name and Date of confirmed by patient verbally and Name and Date of confirmed by identification band. FALL SCREENING: Has the patient had 2 falls in the last year or 1 fall with injury or currently using an Ambulatory Assistive Device (Walker, Cane, Wheelchair, Crutches, etc.)? No PATIENT GENDER DATA: Female. status: : No status: NO. PATIENT RELEVANT IMPLANT DATA REVIEWED: Yes RADIOLOGY DEPARTMENT: CT; Exam(s) Completed: Cardiac PERIPHERAL IV DATA: Not applicable SIGNED BY: RT Po(R) March 17, 2022 2:09 PM [facility] 03-17-2022 History of Present illness Narrative Radiology Service Progress Note PATIENT NAME: Diane Angelo DATE OF SERVICE: March 17, 2022 TIME: 2:09 PM PATIENT IDENTITY VERIFICATION COMPLETED USING TWO (2) IDENTIFIERS: Name and Date of confirmed by patient verbally and Name and Date of confirmed by identification band. FALL SCREENING: Has the patient had 2 falls in the last year or 1 fall with injury or currently using an Ambulatory Assistive Device (Walker, Cane, Wheelchair, Crutches, etc.)? No PATIENT GENDER DATA: Female. status: : No status: NO. PATIENT RELEVANT IMPLANT DATA REVIEWED: Yes RADIOLOGY DEPARTMENT: CT; Exam(s) Completed: Cardiac PERIPHERAL IV DATA: Not applicable SIGNED BY: RT Po(R) March 17, 2022 2:09 PM documented in this encounter [facility] 03-13-2022 Note HNO ID: [id number] Author: Rosemary James APRN.MORGAN Service: ? Author Type: Nurse Practitioner Type: Progress Notes Filed: 03/13/2022 10:37 AM Note Text: Wellness and Preventative Medicine Department [facility] Visit date: March 13, 2022 Diane Angelo is a 51 year old female who presents on March 13, 2022 for a consultation at the [facility]. CHIEF COMPLAINT: Weight Management PRIMARY CARE PHYSICIAN: Dr. Alonzo Nelson REFERRED BY: Dr. María Estes (Cardiology) HISTORY OF PRESENT ILLNESS: Diane is a 51 year old female with PMH of depression, HLD, lichen sclerosus. [facility] with referral from cardiology for consultation related to weight management. Put on weight after losing her dog last year. Used to walk his 2-3 times per day but no longer does walking. 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 States that other than reducing her walking she has not changed anything and is unsure why she is now gaining weight. LIFESTYLE: Diet Diet rating: Rates her diet as poor Some does she doesn't eat at all; doesn't get hungry when she is hot Average day: Breakfast: Skip Dinner: Frozen meals; processed foods Snack: salami sticks; crackers with peanut butter; cuts up cucumbers and tomatoes; muffins Liquids: Dr. Anderson (1 bottle per day); water (1/2 to 1 bottle per day) Average intake of vegetables: low Average # of meals eaten out per week: twice weekly Cooking at home: Does cooking at home; Shared cooking at home Physical Activity Physical activity is low; is intolerant to the heat Has a pedal machine at her home but doesn't use it Left knee bothers her sometimes Has plantar fasciitis and joint pains that keep her from moving around more - walking exacerbates these pains Sleep Sleep varies Bed time: by 2 am Wake time: 8-8:30 am then goes back to sleep until about 10 am Has issues with insomnia (has trouble staying asleep and falling asleep) Feels like her mind wanders a lot at night Stress Lives at home with room mate (used to be her partner; broke up about 1 week ago) Depression - takes Zoloft - has been on this for a while Has never worked with a psychiatrist - has been to counseling a couple of times and found it helpful Works 1 pm- 11:30 pm (4 days per week) Does not have a good support system Does housework when she is not working Gets together with her cousin sometimes - is close with her cousin PAST MEDICAL HISTORY Diagnosis Date - Depression - Hyperlipemia - Lichen sclerosus - Low blood sugar PAST SURGICAL HISTORY Procedure Laterality Date - ABDOMINAL SURGERY HX - ABLATION S-V ARRYTHMIC FOCI, NO PUMP 08/27/2002 - ABLATION:VT W/TRANSSEPTAL 08/27/2002 - APPENDECTOMY 08/27/2006 - APPENDECTOMY HX - COLONOSCOPY FLX DX W/COLLJ SPEC WHEN PFRMD 12/28/2020 - ESOPHAGOGASTRODUODENOSCOPY TRANSORAL DIAGNOSTIC 12/28/2020 - LAPS SURG CHOLECYSTECTOMY W/CHOLANGIOGRAPHY 05/27/2013 Normal IOC - PAST SURGICAL HISTORY OF lap hysterectomy - VAGINAL HYSTERECTOMY FAMILY HISTORY Problem Relation Age of Onset - other (stent) Mother - other (icd) Father - Diabetes Sister - Cancer Brother Social History Tobacco Use - Smoking status: Never Smoker - Smokeless tobacco: Never Used Substance Use Topics - Alcohol use: No Comment: rarely - Drug use: No ALLERGIES Allergen Reactions - Nkda [Other] Current Outpatient Medications on File Prior to Visit Medication Sig - rosuvastatin (CRESTOR) 5 mg tablet Take 5 mg by mouth once daily. - cholecalciferol, vitamin D3, (VITAMIN D3) 100 mcg (4,000 unit) cap Take 4,000 Units by mouth once daily. - polyethylene glycol 3350 (MIRALAX, GLYCOLAX) 17 gram/dose powder Use as directed for Miralax / Gatorade Bowel Prep Kit - Gatorade Sports Drink Use as directed for Miralax / Gatorade Bowel Prep Kit - SERTRALINE 100 mg tablet once daily. - NAPROXEN SODIUM (ALEVE ORAL) Take by mouth. (Patient not taking: Reported on 02/28/2022 ) No current facility-administered medications on file prior to visit. SUPPLEMENTS: Vitamin D (x 3 years; takes 5,000 international unit(s)) REVIEW OF SYSTEMS: (POSITIVES IN BOLD) GENERAL: Fever, chills, fatigue, weight loss/weight gain. SKIN: Rash. HEENT: Nasal congestion, sore throat, changes in hearing or vision. NECK: Neck pain, lumps, dysphagia. RESPIRATORY: Cough, shortness of breath. CARDIOVASCULAR: Chest pain, palpitations, leg swelling. GI: Nausea, vomiting, constipation, diarrhea, abdominal pain, gas or bloating. Daily BM's of normal color/consistency. : Urinary incontinence, dysuria, urgency or frequency. MUSCULOSKELETAL: Swelling, joint pain, limited ROM. PSYCH: Depression, anxiety, irritability. NEURO: Headache, dizziness, numbness, tingling, tremor. PHYSICAL EXAM: General Appearance: Alert and well. NAD. Skin: Skin color normal. No (more content not included)... [facility] 03-13-2022 History of Present illness Narrative Wellness and Preventative Medicine Department [facility] Visit date: March 13, 2022 Diane Angelo is a 51 year old female who presents on March 13, 2022 for a consultation at the [facility]. CHIEF COMPLAINT: Weight Management PRIMARY CARE PHYSICIAN: Dr. Alonzo Nelson REFERRED BY: Dr. María Estes (Cardiology) HISTORY OF PRESENT ILLNESS: Diane is a 51 year old female with PMH of depression, HLD, lichen sclerosus. [facility] with referral from cardiology for consultation related to weight management. Put on weight after losing her dog last year. Used to walk his 2-3 times per day but no longer does walking. 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 States that other than reducing her walking she has not changed anything and is unsure why she is now gaining weight. LIFESTYLE: Diet Diet rating: Rates her diet as poor Some does she doesn't eat at all; doesn't get hungry when she is hot Average day: Breakfast: Skip Dinner: Frozen meals; processed foods Snack: salami sticks; crackers with peanut butter; cuts up cucumbers and tomatoes; muffins Liquids: Dr. Anderson (1 bottle per day); water (1/2 to 1 bottle per day) Average intake of vegetables: low Average # of meals eaten out per week: twice weekly Cooking at home: Does cooking at home; Shared cooking at home Physical Activity Physical activity is low; is intolerant to the heat Has a pedal machine at her home but doesn't use it Left knee bothers her sometimes Has plantar fasciitis and joint pains that keep her from moving around more - walking exacerbates these pains Sleep Sleep varies Bed time: by 2 am Wake time: 8-8:30 am then goes back to sleep until about 10 am Has issues with insomnia (has trouble staying asleep and falling asleep) Feels like her mind wanders a lot at night Stress Lives at home with room mate (used to be her partner; broke up about 1 week ago) Depression - takes Zoloft - has been on this for a while Has never worked with a psychiatrist - has been to counseling a couple of times and found it helpful Works 1 pm- 11:30 pm (4 days per week) Does not have a good support system Does housework when she is not working Gets together with her cousin sometimes - is close with her cousin PAST MEDICAL HISTORY Diagnosis Date Depression Hyperlipemia Lichen sclerosus Low blood sugar PAST SURGICAL HISTORY Procedure Laterality Date ABDOMINAL SURGERY HX ABLATION S-V ARRYTHMIC FOCI, NO PUMP 08/27/2002 ABLATION:VT W/TRANSSEPTAL 08/27/2002 APPENDECTOMY 08/27/2006 APPENDECTOMY HX COLONOSCOPY FLX DX W/COLLJ SPEC WHEN PFRMD 12/28/2020 ESOPHAGOGASTRODUODENOSCOPY TRANSORAL DIAGNOSTIC 12/28/2020 LAPS SURG CHOLECYSTECTOMY W/CHOLANGIOGRAPHY 05/27/2013 Normal IOC PAST SURGICAL HISTORY OF lap hysterectomy VAGINAL HYSTERECTOMY FAMILY HISTORY Problem Relation Age of Onset other (stent) Mother other (icd) Father Diabetes Sister Cancer Brother Social History Tobacco Use Smoking status: Never Smoker Smokeless tobacco: Never Used Substance Use Topics Alcohol use: No Comment: rarely Drug use: No ALLERGIES Allergen Reactions Nkda [Other] Current Outpatient Medications on File Prior to Visit Medication Sig rosuvastatin (CRESTOR) 5 mg tablet Take 5 mg by mouth once daily. cholecalciferol, vitamin D3, (VITAMIN D3) 100 mcg (4,000 unit) cap Take 4,000 Units by mouth once daily. polyethylene glycol 3350 (MIRALAX, GLYCOLAX) 17 gram/dose powder Use as directed for Miralax / Gatorade Bowel Prep Kit Gatorade Sports Drink Use as directed for Miralax / Gatorade Bowel Prep Kit SERTRALINE 100 mg tablet once daily. NAPROXEN SODIUM (ALEVE ORAL) Take by mouth. (Patient not taking: Reported on 02/28/2022 ) No current facility-administered medications on file prior to visit. SUPPLEMENTS: Vitamin D (x 3 years; takes 5,000 international unit(s)) REVIEW OF SYSTEMS: (POSITIVES IN BOLD) GENERAL: Fever, chills, fatigue, weight loss/weight gain. SKIN: Rash. HEENT: Nasal congestion, sore throat, changes in hearing or vision. NECK: Neck pain, lumps, dysphagia. RESPIRATORY: Cough, shortness of breath. CARDIOVASCULAR: Chest pain, palpitations, leg swelling. GI: Nausea, vomiting, constipation, diarrhea, abdominal pain, gas or bloating. Daily BM's of normal color/consistency. : Urinary incontinence, dysuria, urgency or frequency. MUSCULOSKELETAL: Swelling, joint pain, limited ROM. PSYCH: Depression, anxiety, irritability. NEURO: Headache, dizziness, numbness, tingling, tremor. PHYSICAL EXAM: General Appearance: Alert and well. NAD. Skin: Skin color normal. No visible rashes or lesions. HEENT: Normocephalic. Sclera anicteric. External ears normal. Lungs: Normal respiratory effort. Extremities: No obvious limited ROM. No edema. Neuro: A&O x3. Normal gait. Psych: Calm and cooperative. ASSESSMENT/PLAN: Diane is a 51 year old female with PMH of depression, HLD, lichen sclerosus. [facility] from cardiology for consultation related to weight management. Poor diet, sedentary lifestyle, disrupted circadian rhythm and depression/social isolation are likely drivers of patient's weight gain and poor cardiovascular health. (E66.9) Obesity (BMI 30-39.9) (primary encounter diagnosis) (I49.3) PVC's (premature ventricular contractions) (F32.0) Current mild episode of major depressive disorder, unspecified whether recurrent (HCC) (E78.5) Hyperlipidemia, unspecified hyperlipidemia type (Z68.30) BMI 30.0-30.9,adult (Z71.3) Nutritional counseling (M25.50) Multiple joint pain Plan: -Consult to [facility] -Consult to [facility] -Check vitamin D labs as patient has been supplementing; also at risk for deficiency due to BMI -Discussed anti-inflammatory, Mediterranean diet -Encouraged patient to start tracking daily steps in order to set/reach new goals. Discussed importance of 150 minutes of cardiovascular exercise each week for cardiovascular health and weight reduction -Discussed sleep and circadian rhythm; sleep hygiene suggestions made. -Encouraged patient to start a daily women's MVI as she is very far from meeting the recommended dietary guidelines for Americans regarding intake of vegetables, fruits and whole grains. Follow up in 6 months or sooner as needed. PATIENT INSTRUCTIONS: Get blood work done at your earliest convenience. Diet: Sign up for the [facility] Shared Medial Appointment. To sign up call [phone]. Consider adopting an Anti-Inflammatory Diet (Mediterannean Diet) to help relieve pain and joint inflammation. Physical Activity: Consider getting yourself a pedometer to help track your steps. (3DFitBud). Goal is 10,000 steps per day. For cardiovascular health and weight loss, strive to get 150 minutes of cardio in each week (brisk walking, jogging, swimming, elliptical etc.) Sleep: How to optimize your circadian rhythm and energy levels: Keep a regular sleep-wake cycle. Go to bed at the same time every night and wake up at the same time every morning. Avoid bright light exposure 45 minutes before bed (this includes overhead lights, TV's, phones, computers, etc.) You want your environment to be as dim as possible before sleep. Do not sleep with the TV on. Within 30 minutes of waking up, go outside for 5 minutes. The bright natural light (even on a cloudy day) will reset your circadian rhythm and spike your cortisol. (Morning cortisol spikes are good!) Eat breakfast within 2 hours of waking up and stop eating 2-3 hours before going to bed. Stress/Mental and Emotional Wellbeing: Schedule an appointment with one of our Holistic Psychotherapists. To schedule, call [phone]. Supplements: Consider starting a once daily women's multivitamin. This is particularly important if you are not meeting the national dietary recommendations of 2 servings of fruits and 4 servings of vegetables per day. When purchasing supplements, it is always best to purchase from a physical store rather than online. Shop at local supplement stores if possible. If purchasing products online I recommend you shop on [employer] or the [facility]'s Wellness store at [email or web address]. Choose supplements with Good Manufacturing Processing and third green party testing. Common brands that have GMP, NSF and/or RETIREMENT certified products include: Mar[employer], Pure Encapsulations, Integrative Therapeutics, Metagenics, Life Extension, Wynona Naturals, The Vitamin Shoppe, Nature's Way, Nature's Bounty, Orthomolecular, Doctor's Best, Jeimy Herbs, Garden of Life, MegaFood, Solaray, Jarrow, NOW. Start taking supplements one at a time as prescribed and wait three days before starting another supplement. If you develop any rashes, swelling, difficulty breathing or any other concerning symptoms, stop taking the supplement and seek immediate medical attention. Follow up in 6 months. [employer]ER [employer] LIFESTYLE GOALS DISCUSSED TODAY: Diet Whole foods, plant-based diet focusing on a wide variety of vegetables, fruits, legumes, whole grains, nuts and seeds. Some nutrient dense, minimally processed animal products can supplement the predominantly plant-based diet. Avoid highly processed foods and products containing added sugar and sodium. Physical Activity Move often throughout the day and sit less. Break up long periods of sitting with frequent standing, walking and stretching. Try to get 150 minutes of moderate intensity exercise (brisk walking, hiking, weight lifting, swimming) per week. Sleep Practice healthy sleep hygiene techniques and strive for a full 7-9 hours of sleep per night. Try to go to bed and wake up at the same time each day and avoid eating, watching TV or looking at screens 1-2 hours before sleep. Stress Avoid lifestyle behaviors that the body identifies as stressful including: sleep deprivation, over-exercising, prolonged fasting, exposure to toxins (like cigarettes), and poor diet. Practice techniques like mindfulness, meditation, journaling or yoga on a regular basis so your body is more equipped to handle the unavoidable external stressors of life. Community Social isolation and loneliness can have significant negative health consequences. Cultivate connections with others by both giving and receiving social support and nurturing existing relationships with those around you. Participate in community programs, muslim services or volunteer opportunities to nourish your sense of purpose and belonging. Environmental Exposures Be aware of the toxins found in our environment and consciously reduce exposure. Avoid Paul cookware and plastic. When possible, eat organic, drink filtered water and use personal care products with a high safety rating. View safety ratings on the Environmental Working Group's website: www.EWG.org. I spent a total of 60 minutes on the date of the service which included preparing to see the patient, [id number] patient care, completing clinical documentation, performing a medically appropriate examination, counseling and educating the patient/family/caregiver and ordering medications, tests, or procedures. Rosemary James APRN.CNP March 13, 2022 documented in this encounter [facility] 03-13-2022 Instructions Rosemary James APRN.CNP - 03/13/2022 9:59 AM EDT PATIENT INSTRUCTIONS: Get blood work done at your earliest convenience. Diet: Sign up for the [facility] Shared Medial Appointment. To sign up call [phone]. Consider adopting an Anti-Inflammatory Diet (Mediterannean Diet) to help relieve pain and joint inflammation. Physical Activity: Consider getting yourself a pedometer to help track your steps. (3DFitBud). Goal is 10,000 steps per day. For cardiovascular health and weight loss, strive to get 150 minutes of cardio in each week (brisk walking, jogging, swimming, elliptical etc.) Sleep: How to optimize your circadian rhythm and energy levels: Keep a regular sleep-wake cycle. Go to bed at the same time every night and wake up at the same time every morning. Avoid bright light exposure 45 minutes before bed (this includes overhead lights, TV's, phones, computers, etc.) You want your environment to be as dim as possible before sleep. Do not sleep with the TV on. Within 30 minutes of waking up, go outside for 5 minutes. The bright natural light (even on a cloudy day) will reset your circadian rhythm and spike your cortisol. (Morning cortisol spikes are good!) Eat breakfast within 2 hours of waking up and stop eating 2-3 hours before going to bed. Stress/Mental and Emotional Wellbeing: Schedule an appointment with one of our Holistic Psychotherapists. To schedule, call [phone]. Supplements: Consider starting a once daily women's multivitamin. This is particularly important if you are not meeting the national dietary recommendations of 2 servings of fruits and 4 servings of vegetables per day. When purchasing supplements, it is always best to purchase from a physical store rather than online. Shop at local supplement stores if possible. If purchasing products online I recommend you shop on [employer] or the [facility]'s Wellness store at [email or web address]. Choose supplements with Good Manufacturing Processing and third green party testing. Common brands that have GMP, NSF and/or RETIREMENT certified products include: [employer] Research, Pure Encapsulations, Integrative Therapeutics, Metagenics, Life Extension, Wynona Naturals, The Vitamin Shoppe, Nature's Way, Nature's Bounty, Orthomolecular, Doctor's Best, Jeimy Herbs, Garden of Life, MegaFood, Solaray, Jarrow, NOW. Start taking supplements one at a time as prescribed and wait three days before starting another supplement. If you develop any rashes, swelling, difficulty breathing or any other concerning symptoms, stop taking the supplement and seek immediate medical attention. Follow up in 6 months. [employer] LIFESTYLE GOALS DISCUSSED TODAY: Diet Whole foods, plant-based diet focusing on a wide variety of vegetables, fruits, legumes, whole grains, nuts and seeds. Some nutrient dense, minimally processed animal products can supplement the predominantly plant-based diet. Avoid highly processed foods and products containing added sugar and sodium. Physical Activity Move often throughout the day and sit less. Break up long periods of sitting with frequent standing, walking and stretching. Try to get 150 minutes of moderate intensity exercise (brisk walking, hiking, weight lifting, swimming) per week. Sleep Practice healthy sleep hygiene techniques and strive for a full 7-9 hours of sleep per night. Try to go to bed and wake up at the same time each day and avoid eating, watching TV or looking at screens 1-2 hours before sleep. Stress Avoid lifestyle behaviors that the body identifies as stressful including: sleep deprivation, over-exercising, prolonged fasting, exposure to toxins (like cigarettes), and poor diet. Practice techniques like mindfulness, meditation, journaling or yoga on a regular basis so your body is more equipped to handle the unavoidable external stressors of life. Community Social isolation and loneliness can have significant negative health consequences. Cultivate connections with others by both giving and receiving social support and nurturing existing relationships with those around you. Participate in community programs, muslim services or volunteer opportunities to nourish your sense of purpose and belonging. Environmental Exposures Be aware of the toxins found in our environment and consciously reduce exposure. Avoid Paul cookware and plastic. When possible, eat organic, drink filtered water and use personal care products with a high safety rating. View safety ratings on the Environmental Working Group's website: www.EWG.org. documented in this encounter [facility] 02-28-2022 Note HNO ID: [id number] Author: María Estes MD Service: ? Author Type: Physician Type: Progress Notes Filed: 02/28/2022 3:01 PM Note Text: Heart and Vascular [facility] Akhtar Department of Cardiovascular Medicine SECTION OF REGIONAL CARDIOLOGY [facility] 02/28/2022 OUTPATIENT VISIT TYPE NEW Patient Patient is self-referral for the evaluation of fatigue and history of PVC ablation arrhythmia The consult note will be sent to the requesting provider using [facility] medical records. HISTORY OF PRESENT ILLNESS: Ms. Angelo is a 51 year old female who had ablation for PVCs in [address] Mietsh Huynh. The patient had no recurrent symptoms of palpitations but wanted to be checked out to make sure there is no complication from that procedure. She has no symptoms of chest pain. Patient has mild exertional shortness of breath. 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 Social History Tobacco Use - Smoking status: Never Smoker - Smokeless tobacco: Never Used Substance Use Topics - Alcohol use: No Comment: rarely - Drug use: No FAMILY HISTORY Problem Relation Age of Onset - other (stent) Mother - other (icd) Father - Diabetes Sister - Cancer Brother PAST MEDICAL HISTORY Diagnosis Date - Depression - Hyperlipemia - Lichen sclerosus - Low blood sugar PAST SURGICAL HISTORY Procedure Laterality Date - ABDOMINAL SURGERY HX - ABLATION S-V ARRYTHMIC FOCI, NO PUMP 08/27/2002 - ABLATION:VT W/TRANSSEPTAL 08/27/2002 - APPENDECTOMY 08/27/2006 - APPENDECTOMY HX - COLONOSCOPY FLX DX W/COLLJ SPEC WHEN PFRMD 12/28/2020 - ESOPHAGOGASTRODUODENOSCOPY TRANSORAL DIAGNOSTIC 12/28/2020 - LAPS SURG CHOLECYSTECTOMY W/CHOLANGIOGRAPHY 05/27/2013 Normal IOC - PAST SURGICAL HISTORY OF lap hysterectomy - VAGINAL HYSTERECTOMY REVIEW OF SYSTEMS: SYSTEMIC: No fever, chills, or change in weight or appetite HEENT: No recent change in vision or hearing. Respiratory: No hemoptysis, cough. CARDIOVASCULAR: See HPI. GI: No recent nausea, vomiting or diarrhea. : No recent hematuria or dysuria. SKIN: No recent itching or eruption. PSYCH: No recent active anxiety or depression. HEMATOLOGY/ONCOLOGY: No recent diagnosis of bleeding or cancer. ENDOCRINE: No recent polyuria or heat intolerance. NEURO: No recent TIA, stroke or seizures. RHEUMATOLOGY: No recent active connective tissue disease. Rest of the review of system is unremarkable. CURRENT MEDICATIONS: rosuvastatin (CRESTOR) 5 mg tablet Take 5 mg by mouth once daily. cholecalciferol, vitamin D3, (VITAMIN D3) 100 mcg (4,000 unit) cap Take 4,000 Units by mouth once daily. SERTRALINE 100 mg tablet once daily. polyethylene glycol 3350 (MIRALAX, GLYCOLAX) 17 gram/dose powder Use as directed for Miralax / Gatorade Bowel Prep Kit Gatorade Sports Drink Use as directed for Miralax / Gatorade Bowel Prep Kit NAPROXEN SODIUM (ALEVE ORAL) Take by mouth. ALLERGIES Allergen Reactions - Nkda [Other] PHYSICAL EXAM: BP 126/82 Pulse 71 Ht 5' 7 (1.70m) Wt 192 lb (87.1kg) LMP 01/11/2004 BMI 30.06 kg/(m2). Last 2 Encounter Wt Readings: Date: Wt: 02/28/2022 87.1 kg (192 lb) 11/30/2020 82.1 kg (181 lb) Awake, alert, oriented times 3. Patient is not in acute respiratory distress. SKIN: No petechial rash or ecchymosis noted. Head : Normocephalic. Face is symmetrical NECK: Supple. No JVD. No carotid bruit. No thyromegaly. ENT: Pharyngeal structures are crowded and uvula is visualized. Mallampati 2 LUNGS: Clear to auscultation bilaterally. CARDIAC: Normal S1 and S2, no systolic murmur. ABDOMEN: Soft, nontender, bowel sounds present. EXTREMITY: No cyanosis, clubbing, edema. PULSES: Peripheral pulses palpable. NEURO: Non-focal. Moves all extremities. Musculoskeletal: No significant deformities. Last Labs: CMP: Sodium Date Value Ref Range Status 10/08/2012 140 132 - 148 mmol/L Final Potassium Date Value Ref Range Status 10/08/2012 4.0 3.5 - 5.0 mmol/L Final Chloride Date Value Ref Range Status 10/08/2012 104 98 - 110 mmol/L Final CO2 Date Value Ref Range Status 10/08/2012 23 23 - 32 mmol/L Final Glucose Date Value Ref Range Status 10/08/2012 74 65 - 100 mg/dL Final BUN Date Value Ref Range Status 10/08/2012 13 8 - 25 mg/dL Final Creatinine Date Value Ref Range Status 10/08/2012 0.61 (L) 0.70 - 1.40 mg/dL Final Calcium Date Value Ref Range Status 10/08/2012 8.5 8.5 - 10.5 mg/dL Final PT INR Date Value Ref Range Status 11/27/2002 1.00 0.77 - 1.17 Final Cardiovascular Testing: I reviewed personally. I have personally reviewed the Electrocardiogram, Chest X-ray, Laboratory Testing. Exam indication: PSVT - The (more content not included)... [facility] 02-28-2022 Instructions María Estes MD - 02/28/2022 2:47 PM EDT If you have any questions about your visit today, please call our office and my staff will forward your message to me. I will get back to you as soon as possible. If you receive a survey in regards to your visit today, we encourage you to provide feedback so we may continue to provide you with the best care possible. Sleep Apnea What is sleep apnea? Sleep apnea is a serious sleep disorder that occurs when a person's breathing is interrupted during sleep. People with untreated sleep apnea stop breathing repeatedly during their sleep, sometimes hundreds of times during the night. There are two types of sleep apnea: obstructive and central. Obstructive sleep apnea is the more common of the two. Obstructive sleep apnea occurs as repetitive episodes of complete or partial upper airway blockage during sleep. During an apneic episode, the diaphragm and chest muscles work harder as the pressure increases to open the airway. Breathing usually resumes with a loud gasp or body jerk. These episodes can interfere with sound sleep, reduce the flow of oxygen to vital organs, and cause heart rhythm irregularities. In central sleep apnea, the airway is not blocked but the brain fails to signal the muscles to breathe due to instability in the respiratory control center. Central apnea is named as such because it is related to the function of the central nervous system. Who gets sleep apnea? Sleep apnea occurs in about 25 percent of men and nearly 10 percent of women. Sleep apnea can affect people of all ages, including babies and children and particularly people over the age of fifty and those who are overweight. Certain physical traits and clinical features are common in patients with obstructive sleep apnea. These include excessive weight, large neck, and structural abnormalities reducing the diameter of the upper airway, such as nasal obstruction, a low-hanging soft palate, enlarged tonsils, or a small jaw with an overbite. These figures illustrate the upper airway in normal sleep (A; person is lying on back, face up) and in obstructive sleep apnea (B). The arrows indicate complete obstruction in the back of the throat. What causes sleep apnea? Obstructive sleep apnea is caused by a blockage of the airway, usually when the soft tissue in the rear of the throat collapses during sleep. Central sleep apnea is usually observed in patients with central nervous system dysfunction, such as following a stroke or in patients with neuromuscular diseases like amyotrophic lateral sclerosis. It is also common in patients with heart failure and other forms of cardiac and pulmonary disease. What are the symptoms of sleep apnea? Often the first signs of SAMANTA are recognized not by the patient, but by the bed partner. Many of those affected have no sleep complaints. The most common signs and symptoms of SAMANTA include: Snoring Daytime sleepiness or fatigue Restlessness during sleep, frequent nighttime awakenings Sudden awakenings with a sensation of gasping or choking Dry mouth or sore throat upon awakening Cognitive impairment, such as trouble concentrating, forgetfulness, or irritability Mood disturbances (depression or anxiety) Night sweats Sexual dysfunction Headaches People with central sleep apnea more often report recurrent awakenings or insomnia, although they may also experience a choking or gasping sensation upon awakening. Symptoms in children may not be as obvious and include: Poor school performance Sluggishness or sleepiness, often misinterpreted as laziness in the classroom Daytime mouth breathing and swallowing difficulty Inward movement of the ribcage when inhaling Unusual sleeping positions, such as sleeping on the hands and knees, or with the neck hyper-extended Excessive sweating at night Learning and behavioral disorders (hyperactivity, attention deficits) Bedwetting What are the effects of sleep apnea? If left untreated, sleep apnea can result in a number of health problems including hypertension, stroke, arrhythmias, cardiomyopathy (enlargement of the muscle tissue of the heart), heart failure, diabetes, obesity and heart attacks. In addition, untreated sleep apnea may be responsible for job impairment, work-related accidents, and motor vehicle crashes as well as academic underachievement in children and adolescents. How is sleep apnea diagnosed? The diagnosis of sleep apnea is relatively straightforward. If your doctor determines that you have symptoms suggestive of sleep apnea, then your doctor may ask you to have a sleep evaluation with a sleep specialist or may order an overnight sleep study to objectively evaluate for sleep apnea. Testing includes having an overnight sleep study called a polysomnogram (PSG). A PSG is performed in a sleep laboratory under the direct supervision of a trained technologist. During the test, a variety of body functions, such as the electrical activity of the brain, eye movements, muscle activity, heart rate, breathing patterns, air flow, and blood oxygen levels are recorded at night during sleep. In some cases, a Home Sleep Test (HST) may be performed instead. This is a modified type of sleep study that can be done in the comfort of home. It records fewer body functions than PSG, including airflow, breathing effort, blood oxygen levels and snoring to confirm a diagnosis of moderate to severe obstructive sleep apnea. It is not appropriate to be used as a screening tool for patients without symptoms. It is not used for patients with significant medical problems (such as heart failure, moderate to severe cardiac disease, neuromuscular disease, or moderate to severe pulmonary disease). It is also not used for patients who have other sleep disorders (such as central sleep apnea, restless legs syndrome, insomnia, circadian rhythm disorders, parasomnias, or narcolepsy) in addition to the suspected obstructive sleep apnea. What are the treatments for sleep apnea? Conservative treatments In mild cases of obstructive sleep apnea, conservative therapy may be all that is needed. Overweight persons can benefit from losing weight. Even a 10 percent weight loss can reduce the number of apneic events for most patients. However, losing weight can be difficult to do with untreated obstructive sleep apnea due to increased appetite and metabolism changes that can occur with obstructive sleep apnea. Individuals with obstructive sleep apnea should avoid the use of alcohol and certain sleeping pills, which make the airway more likely to collapse during sleep and prolong the apneic periods. In some patients with mild obstructive sleep apnea, breathing pauses occur only when they sleep on their backs. In such cases, using pillows and other devices that help them sleep in a side position may be helpful. People with sinus problems or nasal congestion should use nasal sprays or breathing strips to reduce snoring and improve airflow for more comfortable nighttime breathing. Avoiding sleep deprivation is important for all patients with sleep disorders. Mechanical therapy Positive Airway Pressure (PAP) therapy is the preferred initial treatment for most people with obstructive sleep apnea. With PAP therapy, patients wear a mask over their nose and/or mouth. An air blower gently forces air through the nose and/or mouth. The air pressure is adjusted so that it is just enough to prevent the upper airway tissues from collapsing during sleep. PAP therapy prevents airway closure while in use, but apnea episodes return when PAP is stopped or if it is used improperly. There are several styles, and types of positive airway pressure devices depending on specific needs of patients. CPAP (Continuous Positive Airway Pressure) is the most widely used of the PAP devices. The machine is set at one single pressure. Bi-Level PAP uses one pressure during inspiration, and a lower pressure during expiration. There is a criterion that must be met before insurance will cover the Bi-Level. This usually means that the CPAP machine must be tried first with no success and these results documented before insurance will pay for a Bi-Level. Auto CPAP or Auto Bi-Level PAP uses a range of pressures that self-regulates during use depending on pressure requirements detected by the machine. Adaptive Servo-Ventilation (ASV) is a type of non-invasive ventilation that is used for patients with central sleep apnea, which acts to keep the airway open and delivers a mandatory breath when needed. Mandibular advancement devices These are devices for patients with mild to moderate obstructive sleep apnea. Dental appliances or oral mandibular advancement devices that help to prevent the tongue from blocking the throat and/or advance the lower jaw forward can be made. These devices help keep the airway open during sleep. A sleep specialist and dentist (with expertise in oral appliances for this purpose) should jointly determine if this treatment is best for you. Nasal Expiratory Positive Airway Pressure The device is worn over both nostrils with the mouth closed to cause an increase in the airway caliber by increasing expiratory resistance. Oral Pressure Therapy The device is worn in the mouth with the patient breathing through the nose. A vacuum pump with negative pressure pulls the soft palate forward to open the airway. Hypoglossal Nerve Stimulator A stimulator is implanted under the skin on the right side of the chest with electrodes tunneled under the skin to the hypoglossal nerve in the neck and to intercostal muscles in the chest. When the hypoglossal nerve is stimulated, the tongue moves forward out of the airway and the airway is opened. Surgery Surgical procedures may help people with obstructive sleep apnea and others who snore but do not have sleep apnea. There are many types of surgical procedures, some of which are performed as outpatient procedures. Surgery is reserved for people who have excessive or malformed tissue obstructing airflow through the nose or throat, such as a deviated nasal septum, markedly enlarged tonsils, or small lower jaw with an overbite that causes the throat to be abnormally narrow. These procedures are typically performed after sleep apnea has failed to respond to conservative measures and a trial of CPAP. Types of surgery include: Somnoplasty is a minimally invasive procedure that uses radiofrequency energy to reduce the soft tissue in the upper airway. Tonsillectomy is a procedure that removes the tonsillar tissue in the back of the throat which is a common cause of obstruction in children with sleep apnea. Uvulopalatopharyngoplasty (UPPP) is a procedure that removes soft tissue on the back of the throat and palate, increasing the width of the airway at the throat opening. Mandibular/maxillary advancement surgery is a surgical correction of certain facial abnormalities or throat obstructions that contribute to obstructive sleep apnea. This is an invasive procedure that is reserved for patients with severe obstructive sleep apnea with head-face abnormalities. Nasal surgery includes correction of nasal obstructions, such as a deviated septum. References [employer] [facility]. What is sleep apnea? Accessed 09/28/2014. documented in this encounter [facility] 02-28-2022 History of Present illness Narrative Images from the original note were not included. [facility] Cassandra Akhtar Department of Cardiovascular Medicine SECTION OF [facility] CARDIOLOGY [facility] 02/28/2022 OUTPATIENT VISIT TYPE NEW Patient Patient is self-referral for the evaluation of fatigue and history of PVC ablation arrhythmia The consult note will be sent to the requesting provider using [facility] medical records. HISTORY OF PRESENT ILLNESS: Ms. Angelo is a 51 year old female who had ablation for PVCs in [address] Mitesh Huynh. The patient had no recurrent symptoms of palpitations but wanted to be checked out to make sure there is no complication from that procedure. She has no symptoms of chest pain. Patient has mild exertional shortness of breath. 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 Social History Tobacco Use Smoking status: Never Smoker Smokeless tobacco: Never Used Substance Use Topics Alcohol use: No Comment: rarely Drug use: No FAMILY HISTORY Problem Relation Age of Onset other (stent) Mother other (icd) Father Diabetes Sister Cancer Brother PAST MEDICAL HISTORY Diagnosis Date Depression Hyperlipemia Lichen sclerosus Low blood sugar PAST SURGICAL HISTORY Procedure Laterality Date ABDOMINAL SURGERY HX ABLATION S-V ARRYTHMIC FOCI, NO PUMP 08/27/2002 ABLATION:VT W/TRANSSEPTAL 08/27/2002 APPENDECTOMY 08/27/2006 APPENDECTOMY HX COLONOSCOPY FLX DX W/COLLJ SPEC WHEN PFRMD 12/28/2020 ESOPHAGOGASTRODUODENOSCOPY TRANSORAL DIAGNOSTIC 12/28/2020 LAPS SURG CHOLECYSTECTOMY W/CHOLANGIOGRAPHY 05/27/2013 Normal IOC PAST SURGICAL HISTORY OF lap hysterectomy VAGINAL HYSTERECTOMY REVIEW OF SYSTEMS: SYSTEMIC: No fever, chills, or change in weight or appetite HEENT: No recent change in vision or hearing. Respiratory: No hemoptysis, cough. CARDIOVASCULAR: See HPI. GI: No recent nausea, vomiting or diarrhea. : No recent hematuria or dysuria. SKIN: No recent itching or eruption. PSYCH: No recent active anxiety or depression. HEMATOLOGY/ONCOLOGY: No recent diagnosis of bleeding or cancer. ENDOCRINE: No recent polyuria or heat intolerance. NEURO: No recent TIA, stroke or seizures. RHEUMATOLOGY: No recent active connective tissue disease. Rest of the review of system is unremarkable. CURRENT MEDICATIONS: rosuvastatin (CRESTOR) 5 mg tablet Take 5 mg by mouth once daily. cholecalciferol, vitamin D3, (VITAMIN D3) 100 mcg (4,000 unit) cap Take 4,000 Units by mouth once daily. SERTRALINE 100 mg tablet once daily. polyethylene glycol 3350 (MIRALAX, GLYCOLAX) 17 gram/dose powder Use as directed for Miralax / Gatorade Bowel Prep Kit Gatorade Sports Drink Use as directed for Miralax / Gatorade Bowel Prep Kit NAPROXEN SODIUM (ALEVE ORAL) Take by mouth. ALLERGIES Allergen Reactions Nkda [Other] PHYSICAL EXAM: BP 126/82 Pulse 71 Ht 5' 7 (1.70m) Wt 192 lb (87.1kg) LMP 01/11/2004 BMI 30.06 kg/(m^2). Last 2 Encounter Wt Readings: Date: Wt: 02/28/2022 87.1 kg (192 lb) 11/30/2020 82.1 kg (181 lb) Awake, alert, oriented times 3. Patient is not in acute respiratory distress. SKIN: No petechial rash or ecchymosis noted. Head : Normocephalic. Face is symmetrical NECK: Supple. No JVD. No carotid bruit. No thyromegaly. ENT: Pharyngeal structures are crowded and uvula is visualized. Mallampati 2 LUNGS: Clear to auscultation bilaterally. CARDIAC: Normal S1 and S2, no systolic murmur. ABDOMEN: Soft, nontender, bowel sounds present. EXTREMITY: No cyanosis, clubbing, edema. PULSES: Peripheral pulses palpable. NEURO: Non-focal. Moves all extremities. Musculoskeletal: No significant deformities. Last Labs: CMP: Sodium Date Value Ref Range Status 10/08/2012 140 132 - 148 mmol/L Final Potassium Date Value Ref Range Status 10/08/2012 4.0 3.5 - 5.0 mmol/L Final Chloride Date Value Ref Range Status 10/08/2012 104 98 - 110 mmol/L Final CO2 Date Value Ref Range Status 10/08/2012 23 23 - 32 mmol/L Final Glucose Date Value Ref Range Status 10/08/2012 74 65 - 100 mg/dL Final BUN Date Value Ref Range Status 10/08/2012 13 8 - 25 mg/dL Final Creatinine Date Value Ref Range Status 10/08/2012 0.61 (L) 0.70 - 1.40 mg/dL Final Calcium Date Value Ref Range Status 10/08/2012 8.5 8.5 - 10.5 mg/dL Final PT INR Date Value Ref Range Status 11/27/2002 1.00 0.77 - 1.17 Final Cardiovascular Testing: I reviewed personally. I have personally reviewed the Electrocardiogram, Chest X-ray, Laboratory Testing. Exam indication: PSVT - The left ventricle is normal in size. Left ventricular systolic function is normal. EF = 60 5% (visual est.) Baseline left ventricular diastolic function is normal. - The right ventricle is normal in size. Right ventricular systolic function is normal. - Mildly thickened anterior mitral valve leaflet with 1+ MR. - Trivial-1+ TR. RVSP 27mmHg. - No valvular stenosis. - Trivial PI. She had a nuclear exercise stress test and 2D echocardiogram in 2018 was done at [facility] which was also within normal limits. 02/28/2022 EKG today shows normal sinus rhythm with no significant ST-T abnormalities and QTc interval is also normal IMPRESSION / RECOMMENDATIONS / PLAN: Encounter Diagnosis ICD-10-CM 1. PVC's (premature ventricular contractions) I49.3 ECG COMPLETE CBC CK CREATINE KINASE COMP METABOLIC PANEL LIPID PANEL BASIC MAGNESIUM BLD TSH BLD POLYSOMNOGRAM (PSG) CONSULT TO INTEGRATIVE MEDICINE 2. Encounter for screening for cardiovascular disorders Z13.6 CT CALCIUM SCORING SELF [place]Y ([place]) 3. S/P RF ablation operation for arrhythmia Z98.890 Z86.79 4. Obesity (BMI 30-39.9) E66.9 CONSULT TO INTEGRATIVE MEDICINE There seems to be no recurrence of PVCs and palpitations. She seems to have symptoms of fatigue and somnolence during the daytime from possible obstructive sleep apnea her anatomy does predispose her to obstructive sleep apnea. I ordered sleep study to evaluate this and if necessary CPAP will be given to her to improve her symptoms of fatigue. I will also do a chemistry profile as she had not been evaluated with her chemistry for last [address] Jerson Terry retired from [employer]. Patient is counseled and educated about the symptoms and treatment plan. María Estes MD [facility] Language Specialist of Ambulatory Cardiology, [facility], [facility]. Language Specialist of Cardiac Catheterization Laboratory, [facility]. Manager Commissionaudio engineer, [facility]. Cassandra Akhtar Department of Cardiovascular Medicine. Staff Physician Obstetrician, [facility]. documented in this encounter [facility] Evaluation note Diagnosis PVC's (premature ventricular contractions)- Primary Other premature beats Encounter for screening for cardiovascular disorders Screening for other and unspecified cardiovascular conditions S/P RF ablation operation for arrhythmia Other postprocedural status Obesity (BMI 30-39.9) Obesity, unspecified [facility] Diagnosis Obesity (BMI 30-39.9)- Primary Obesity, unspecified PVC's (premature ventricular contractions) Other premature beats Current mild episode of major depressive disorder, unspecified whether recurrent (HCC) Hyperlipidemia, unspecified hyperlipidemia type BMI 30.0-30.9,adult Body Mass Index 30.0-30.9, adult Nutritional counseling Multiple joint pain Pain in joint, multiple sites [facility] Diagnosis Encounter for screening for cardiovascular disorders Screening for other and unspecified cardiovascular conditions [facility] noteNo assessment information availableWOhio[facility] Work Phone: Summary Purpose Family History No Family History Records FoundNo Family History Records FoundNo Family History Records FoundNo Family History Records FoundNo Family History Records FoundNo Family History Records FoundNo Family History Records Found Advance Directives No Advanced Directives Records FoundDocuments on File Type Date Recorded 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 60-74 MINUTES María [place] [address] [place] [address] Referral ID Status Reason Start Date Expiration Date Visits Requested Visits Authorized [id number] Pending Review PCP Requested Referral 02/28/2022 02/28/2023 1 1 Specialty Diagnoses / Procedures Referred By Contac t Referred To Contact CT IMAGING Diagnoses Encounter for screening for cardiovascular disorders Procedures CT CALCIUM SCORING SELF PAY ([place]) UNLISTED COMPUTED TOMOGRAPHY PROCEDURE [place]ía [place] [id number] Imaging Referral ID Status Reason Start Date Expiration Date Visits Requested Visits Authorized [id number] Authorized Auto-Generat ed Referral 02/28/2022 03/30/2023 1 1 Specialty Diagnoses / Procedures Referred By Contac t [facility] Diagnoses PVC's (premature ventricular contractions) Procedures ECG COMPLETE ECG ROUTINE ECG W/LEAST 12 LDS W/I&R María [place] [id number] [place] [id number] [facility] [address] [place] [id number] Referral ID Status Reason Start Date Expiration Date V isits Requested Visits Authorized [id number] Closed Auto-Generate d Referral 02/28/2022 02/28/2023 1 1 Specialty Diagnoses / Procedures Referred By Contac t Referred To Contact Diagnoses PVC's (premature ventricular contractions) Obesity (BMI 30-39.9) Current mild episode of major depressive disorder, unspecified whether recurrent (HCC) Hyperlipidemia, unspecified hyperlipidemia type BMI 30.0-30.9,adult Procedures MIND/BODY HOLISTIC PSYCHOTHERAPY OFFICE/OUTPATIENT [facility] 60-74 MINUTES Rosemary James APRN.STAFF NUCLEAR WEAPONS OFFICER [address] [place] [address] Referral ID Status Reason Start Date Expiration Date Visits Requested Visits Authorized [id number] Pending Review PCP Requested Referral 03/13/2022 03/13/2023 1 1 Specialty Diagnoses / Procedures Referred By Anthony t Referred To Contact Diagnoses PVC's (premature ventricular contractions) Obesity (BMI 30-39.9) Current mild episode of major depressive disorder, unspecified whether recurrent (HCC) Hyperlipidemia, unspecified hyperlipidemia type BMI 30.0-30.9,adult Procedures CONSULT TO [facility] OFFICE/OUTPATIENT NEW HIGH MDM 60-74 MINUTES Rosemary James APRN.STAFF NUCLEAR WEAPONS OFFICER [address] [place] [address] Referral ID Status Reason Start Date Expiration Date Visits Requested Visits Authorized [id number] Pending Review PCP Requested Referral 03/13/2022 03/13/2023 1 1 Referral ID Status Reason Start Date Expiration Date V isits Requested Visits Authorized [id number] Closed Auto-Generate d Referral 02/28/2022 03/30/2023 1 1 Chief Complaint and Reason for Visit Chief Complaint JOINT PAIN Additional Source Comments INFORMATION SOURCE (unrecogn ized section and content) DATE CREATED AUTHOR 02/13/2018 [facility] DATE CREATED AUTHOR AUTHOR'S ORGANIZ ATION 02/14/2018 [facility] DATE CREATED AUTHOR AUTHOR'S ORGANIZ ATION 02/14/2018 [facility] DATE CREATED AUTHOR AUTHOR'S ORGANIZ ATION 03/04/2022 [facility] DATE CREATED AUTHOR AUTHOR'S ORGANIZ ATION 03/19/2022 [facility] DATE CREATED AUTHOR AUTHOR'S ORGANIZ ATION 09/22/2024 [facility] DATE CREATED AUTHOR AUTHOR'S ORGANIZ ATION 10/17/2024 [facility] Source Comments (unrecognize d section and content) In the event this informatio n is protected by the Federal Confidentiality of Alcohol and Drug Abuse Patient Records regulations: The Federal rules restrict any use of the information to criminally investigate or prosecute any alcohol or drug abuse patient.[facility] the event this information is protected by the Federal Confidentiality of Alcohol and Drug Abuse Patient Records regulations: The Federal rules restrict any use of the information to criminally investigate or prosecute any alcohol or drug abuse patient.[facility] Center[facility] the event this information is protected by the Federal Confidentiality of Alcohol and Drug Abuse Patient Records regulations: The Federal rules restrict any use of the information to criminally investigate or prosecute any alcohol or drug abuse patient.[facility] Center[facility] the event this information is protected by the Federal Confidentiality of Alcohol and Drug Abuse Patient Records regulations: The Federal rules restrict any use of the information to criminally investigate or prosecute any alcohol or drug abuse patient.[facility] Reason for Visit (unrecogniz ed section and content) Reason Comments Consult Reason Comments Weight Control Specialty Diagnoses / Procedures Referred By Anthony t Referred To Contact INITIAL DEPT Diagnoses PVC's (premature ventricular contractions) Obesity (BMI 30-39.9) Procedures CONSULT TO INTEGRATIVE MEDICINE OFFICE/OUTPATIENT NEW HIGH MDM 60-74 [place]UTES [place]ía [place] [address] [place] [address] Initial Department Referral ID Status Reason Start Date Expiration Date V isits Requested Visits Authorized [id number] Closed PCP Requested Referral 03/13/2022 08/26/2022 1 1 Specialty Diagnoses / Procedures Referred By Contac t Referred To Contact CT IMAGING Diagnoses Encounter for screening for cardiovascular disorders Procedures CT CALCIUM SCORING SELF [place]Y [place] UNLISTED COMPUTED TOMOGRAPHY PROCEDURE María [place] [phone] Imaging Referral ID Status Reason Start Date Expiration Date V isits Requested Visits Authorized [id number] Closed Auto-Generate d Referral 02/28/2022 03/30/2023 1 1 Care Teams (unrecognized sec tion and content) Technical Product Manager Relationship Specialty Start Date End Date Alonzo Nelson MD PCP - General Family Practice 10/08/12 Technical Product Manager Relationship Specialty Start Date End Date Alonzo Nelson MD PCP - General Family Practice 10/08/12 Technical Product Manager Relationship Specialty Start Date End Date Alonzo Nelson MD PCP - General Family Practice 10/08/12 Team Status: Active Member Role Status Dates Dr. Alonzo Nelson MD Family Provider Active Dr. Alonzo Nelson MD Primary Care Provider Active Team Status: Inactive Member Role Status Dates Dr. Alonzo Nelson MD Primary Care Provider, Attending Provider Active Goals (unrecognized section and content) Goals may be documented in a n alternate sectionGoals may be documented in an alternate section FOR RECORDS PERTAINING TO PATIENTS WHO ARE OR HAVE BEEN ENROLLED IN A CHEMICAL DEPENDENCY/SUBSTANCEABUSE PROGRAM, SOME INFORMATION MAY BE OMITTED. This clinical summary was aggregated from multiple sources. Caution should be exercised in using it in the provision of clinical care. This summary normalizes information from multiple sources, and as a consequence, information in this document may materially change the coding, format and clinical context of patient data. In addition, data may be omitted in some cases. CLINICAL DECISIONS SHOULD BE BASED ON THE PRIMARY CLINICAL RECORDS. [facility] [employer] [facility]. provides no warranty or guarantee of the accuracy or completeness of information in this document.
== END | disposition home or self-care (01) ==
LOC: MTRAD 16:26
PROVIDERS: PCP Family Medicine; Referring Provider Family Medicine; Visit Provider Family Medicine
DX: M25.561 Pain in right knee (principal)
CPT/HCPCS: 73564